=== PATIENT | male | born 1955 | race Caucasian/White ===

== ENCOUNTER 2019-04-14 17:43 | Inpatient (IN) | payer OTHER, MEDICARE ==
[2019-04-14 18:12] LABS: #Lymphocytes 0.8 thou/uL (1.20-3.40); #Monocytes 1.1 thou/uL (0.11-0.59); #Neutrophils 15.4 thou/uL (1.40-6.50); %Basophils 0.1 % (0.0-1.0); %Eosinophils 0.2 % (0.0-10.0); %Lymphocytes 4.3 % (21.0-51.0); %Monocytes 6.3 % (0.0-10.0); Hemoglobin 14.6 g/dL (14.0-18.0); Mean Corpuscular Hemoglobin 30.7 pg (27.0-31.0); Mean Corpuscular Volume 90.3 fL (78.0-98.0); Mean Platelet Volume 7.5 fL (7.4-10.4); Platelet Count 184 thou/uL (130-400); RBC Distribution Width 12.7 % (11.5-14.5); Red Blood Cell (RBC) Count 4.77 mill/uL (4.70-6.10); White Blood Cell (WBC) Count 17.3 thou/uL (4.8-10.8)
[2019-04-14 18:22] LABS: Amphetamine Detected (NotDetected); Barbiturates Screen Not Detected (NotDetected); Benzodiazepine Screen Not Detected (NotDetected); Cocaine Metabolite Screen Not Detected (NotDetected); Medtox Control Line Valid? VALID (VALID); Medtox Reader # READER 4; Methadone Not Detected (NotDetected); Methamphetamine Detected (NotDetected); Opiate Screen Not Detected (NotDetected); Oxycodone Screen Not Detected (NotDetected); Phencyclidine (PCP) Not Detected (NotDetected); THC/Cannabinoid Screen Detected (NotDetected); Tricyclic Screen Not Detected (NotDetected)
[2019-04-14 18:25] LABS: Bacteria/HPF None Seen HPF (None Seen); Bilirubin Negative (Negative); Blood, Urine Trace (Negative); Clarity Clear (Clear); Glucose, Urine (Dipstick) Greater than 1000 mg/dL (Negative); Leukocyte Negative Leu/uL (Negative); Nitrite Negative (Negative); Protein, Urine (Dipstick) 20 mg/dL (Neg-Trace); RBC/HPF 0-3 HPF (0-3); Squamous Epithelial 0-3 HPF (0-3); Urobilinogen Normal mg/dL (Less than 2); WBC/HPF 0-3 HPF (0-3)
[2019-04-14 18:46] LABS: ALT (SGPT) 16 U/L (8-55); AST (SGOT) 14 U/L (5-34); Albumin 3.9 g/dL (3.4-4.8); Alkaline Phosphatase 99 U/L (40-110); Anion Gap 22 mmol/L (10-20); BUN (Urea Nitrogen) 84 mg/dL (8.4-25.7); Bilirubin, Total 0.4 mg/dL (0.2-1.2); Calc. Creatinine Clearance 0 mL/min (70-130); Calcium 8.6 mg/dL (7.8-10.44); Carbon Dioxide 11 mmol/L (23-31); Chloride 99 mmol/L (98-107); Estimated GFR-MDRD 20; Globulin 2.9 g/dL (2.4-3.5); Glucose 706 mg/dL (80-115); Potassium 5.3 mmol/L (3.5-5.1); Protein, Total 6.8 g/dL (5.8-8.1); Sodium 127 mmol/L (136-145)
[2019-04-14] MEDS ORDERED: Insulin Regular 100 units/100 ml in NS IVPB SCH (19:00)
--- NOTE | 2019-04-14 19:12 | CT ---
CT OF THE BRAIN WITHOUT CONTRAST: 04/14/19 COMPARISON: None. HISTORY: Altered mental status. TECHNIQUE: Multiple contiguous axial images were obtained in a CT of the brain without contrast. FINDINGS: The brain is normal in morphology and attenuation without focal lesions or confluent areas of infarct ion. There is no evidence of hydrocephalus, intracranial hemorrhage, or extra-axial fluid collection. There is a nonspecific lytic area in the left posterior scalp. The overlying soft tissues are unremar kable. IMPRESSION: No evidence of acute intracranial abnormality. POS: [facility]
--- NOTE | 2019-04-14 19:13 | RAD ---
SINGLE VIEW OF THE CHEST: 04/14/19 COMPARISON: None. HISTORY: Changing mental status. FINDINGS: Single view of the chest shows a normal sized cardiomediastinal silhouette. There is no evidence of c onsolidation, mass, or pleural effusion. The bones are unremarkable. IMPRESSION: No evidence of acute cardiopulmonary disease. POS: [facility]
[2019-04-14] MEDS ORDERED: Ondansetron ODT 4 MG TAB PO PRN (19:58)
[2019-04-14] MEDS ORDERED: Ondansetron PF 4 MG/2 ML Vial IVP PRN (19:58)
[2019-04-14] MEDS ORDERED: Dextrose 5 %-0.45 % NaCl 1,000 ML IV PRN (19:58)
[2019-04-14] MEDS ORDERED: Acetaminophen 325 MG TAB PO PRN (19:58)
[2019-04-14] MEDS ORDERED: Sodium Chloride 0.9% 1,000 ML IV PRN ×4 (19:58)
[2019-04-14] MEDS ORDERED: NS 0.9% w/ 20 MEQ KCL 1,000 ML IV PRN ×2 (19:58)
[2019-04-14] MEDS ORDERED: Acetaminophen 650 MG Suppository PR PRN (19:58)
[2019-04-14] MEDS ORDERED: CCU Electrolyte Replacement 1 EACH IVPB ONE (19:58)
[2019-04-14] MEDS ORDERED: HUMULIN R 100 UNITS in Sodium Chloride 0.9% 100 ML IVPB SCH (20:00)
[2019-04-14] MEDS ORDERED: CCU ELECTROLYTE REPLACEMENT PROTOCOL FS PRN (20:05)
[2019-04-14] MEDS ORDERED: Potassium Chloride 20 MEQ TAB PO PRN (20:05)
[2019-04-14] MEDS ORDERED: Potassium Chloride 40 MEQ in Premix Bag 1 BAG IVPB PRN (20:05)
[2019-04-14] MEDS ORDERED: Potassium Phosphate 12 MMOL in Sodium Chloride 0.9% 250 ML 250 ML IV PRN (20:05)
[2019-04-14] MEDS ORDERED: Potassium Phosphate 9 MMOL in Sodium Chloride 0.9% 100 ML IVPB PRN (20:05)
[2019-04-14] MEDS ORDERED: Magnesium 2 GM/50 ML 2 GM in Premix Bag 1 BAG IVPB PRN (20:05)
[2019-04-14] MEDS ORDERED: Magnesium Oxide 400 MG TAB PO PRN ×2 (20:05)
[2019-04-14] MEDS ORDERED: PHOS-NAK 1 PKT PACK PO PRN ×2 (20:05)
[2019-04-14] MEDS ORDERED: Potassium Chloride 40 MEQ in Sodium Chloride 0.9% 250 ML 250 ML IVPB PRN (20:05)
[2019-04-14] MEDS ORDERED: Potassium Phosphate 15 MMOL in Sodium Chloride 0.9% 250 ML 250 ML IV PRN (20:05)
[2019-04-14 20:21] LABS: Actual Bicarbonate (HCO3a) 10.7 mEq/L (22-28); Analyzer IN Cardio ER; Base Excess (BEa) -14.8 mEq/L (-2.0 to +3.0); Calcium, Ionized 1.25 mmol/L (1.12-1.30); Carboxyhemoglobin (COHb) 0.7 gm% (0.0-3.0); O2 Tension (PaO2) 90.2 mmHg (> 80.0)
[2019-04-14 20:22] LABS: ALV-art Gradient 27.905 (0-20); CO2 Tension 25.3 mmHg (35.0-45.0); Puncture Site RRA; pH, Arterial 7.25 (7.35-7.45)
[2019-04-14 20:43] LABS: Anion Gap 19 mmol/L (10-20); BUN (Urea Nitrogen) 75 mg/dL (8.4-25.7); Calc. Creatinine Clearance 0 mL/min (70-130); Calcium 8.7 mg/dL (7.8-10.44); Chloride 108 mmol/L (98-107); Estimated GFR-MDRD 24; Sodium 132 mmol/L (136-145)
[2019-04-14 20:48] LABS: Carbon Dioxide 9 mmol/L (23-31); Glucose 599 mg/dL (80-115)
[2019-04-14 21:04] LABS: Troponin I 0.289 ng/mL (< 0.028)
--- NOTE | 2019-04-14 21:19 | HP ---
TIME OF EVALUATION: 7:50 p.m. PRIMARY CARE DOCTOR: Unable to verify, the patient is confused. CODE STATUS: Full code. CHIEF COMPLAINT: Change in mental status. HISTORY OF PRESENT ILLNESS: The is a 63 years old male patient with past medical history of diabetes, brought in by EMS after has had called them. Reportedly, the patient had been confused for the past 2 to 3 days with no clear triggers, no alleviating factors. The patient seems to be dehydrated. Labs showed that the patient is in DKA, possible HHS given high osmolality. The patient received IV fluids and DKA protocol. We will place the patient in IMCU. He is able to answer simple questions. Continue to monitor. Seems to be very dehydrated. REVIEW OF SYSTEMS: Unable to obtain, patient is confused, noncooperative. PAST MEDICAL HISTORY: Includes diabetes, hypertension, and high cholesterol. SURGICAL HISTORY: Mouth surgeries, surgeries to remove kidney stones. PSYCHIATRIC HISTORY: Includes anxiety and depression. SOCIAL HISTORY: No alcohol, no drugs. The patient abuse marijuana, cigarettes on a daily basis. Urine toxicology showed amphetamine, methamphetamines and marijuana today. KNOWN ALLERGIES: No known drug allergies. REPORTED MEDICATIONS: Unable to obtain. PHYSICAL EXAMINATION: VITAL SIGNS: On presentation; blood pressure 127/69 with heart rate 81, respiratory rate was 15, pain unable to rate, oxygen saturation was 99% on room air. GENERAL APPEARANCE: The patient was found in his room, lethargic, generalized weakness, confused, able to answer very simple questions, seems to be dry. HEENT: Eyes; normal conjunctivae. Dry oral mucosa. Anicteric. No JVD. RESPIRATORY: Bilateral air entry. No rales. No wheezes. Symmetric expansion. CARDIOVASCULAR: Normal rate. Regular rhythm. No murmurs. No gallop. No edema. ABDOMEN: Soft. Normal bowel sounds. MUSCULOSKELETAL: Baseline range of motion and strength. SKIN: Warm, intact, dry. No rash. No pallor. Capillary refill seems to be intact. NEURO: No evidence of any new focal weakness. Cranial nerves seems to be intact. PSYCH: The patient has good mood. No anxiety. Optimal judgment. DIAGNOSTIC DATA: EKG showed normal sinus rhythm with a rate of 81 with NC 142, QRS 92, QT corrected 450. Brain CT showed no evidence of acute intracranial abnormality. Chest x-ray showed no evidence of acute cardiopulmonary disease. LABORATORY DATA: Showed white count 17.3, MCV 90, platelet count 284. Chemistry; sodium 127, potassium 5.3, chloride 99, carbon dioxide 11, anion gap 22, BUN 84, creatinine 3.22; in previous admissions, the creatinine was normal at 0.8; GFR 20, glucose 706. Serum osmolality 353. Troponin 0.342. Urine was done, showed glucosuria, ketonuria, urine blood. Toxicology show amphetamine in the urine and also cannabinoids. ASSESSMENT AND PLAN: The patient will be placed in the hospital with following medical problems: 1. Diabetic ketoacidosis. The patient has ketonuria, hyperglycemia and acidosis. The patient has been started on diabetic ketoacidosis protocol, receiving fluids. The patient seems to be very dehydrated from the diabetic ketoacidosis and also hyperosmolar. Will follow diabetic ketoacidosis protocol, follow chemistry and adjust treatment as needed. 2. Hyperosmolar hyperglycemic state. The patient has very high osmolality of 353 at this point. The treatment is the same like for diabetic ketoacidosis. Once the blood sugar drops below 250, we will continue with D5W half NS to decrease the osmolality in the blood. 3. Leukocytosis. At this point, it is very difficult to know if the patient has any infections since all the symptoms from diabetic ketoacidosis overlap with infection. Urine is negative for infection. We will continue to monitor, hydrate and treat depending on patient's clinical progress. Seems more in favor of metabolic derangement than an infectious process. 4. Hypertonic hyponatremia, corrected sodium 137. This sodium level is unrealistic. 5. Hyperkalemia. This is mild given the patient's acidosis. We will continue to monitor and we will replace as needed. 6. Acute kidney injury. Creatinine 3.22, previous one was 0.8. We will hydrate aggressively and monitor kidney function and treat accordingly. 7. Elevated troponin of 0.342, most likely related to dehydration, possible [id number]-[id number] myocardial infarction type 2. We will trend troponins and treat accordingly. 8. Drug use. Once the patient is alert and oriented, will need some counseling regarding this finding. 9. Deep venous thrombosis prophylaxis. 10. Acute encephalopathy that is metabolic secondary to diabetic ketoacidosis and hyperglycemic hyperosmolar syndrome. Job ID: [id number]
[2019-04-14 23:30] VITALS: BP 138/72
[2019-04-15 00:37] LABS: Anion Gap 14 mmol/L (10-20); BUN (Urea Nitrogen) 65 mg/dL (8.4-25.7); Calc. Creatinine Clearance 31 mL/min (70-130); Calcium 8.4 mg/dL (7.8-10.44); Carbon Dioxide 15 mmol/L (23-31); Chloride 113 mmol/L (98-107); Estimated GFR-MDRD 32; Glucose 295 mg/dL (80-115); Potassium 3.4 mmol/L (3.5-5.1); Sodium 139 mmol/L (136-145)
[2019-04-15 00:42] LABS: Troponin I 0.272 ng/mL (< 0.028)
[2019-04-15] MEDS: D5 1/2 NS w/20 mEq KCL 1,000 ML IV PRN ×2 (00:55→03:57)
[2019-04-15] MEDS: Heparin 5,000 UNITS/ML VIAL SC SCH ×4 (03:36→21:35)
[2019-04-15 04:13] LABS: #Lymphocytes 0.7 thou/uL (1.20-3.40); #Monocytes 1.2 thou/uL (0.11-0.59); %Lymphocytes 5.3 % (21.0-51.0); %Monocytes 8.5 % (0.0-10.0); %Neutrophils 86.2 % (42.0-75.0); Hemoglobin 14.8 g/dL (14.0-18.0); Mean Corpuscular HGB CONC 35.2 g/dL (32.0-36.0); Mean Corpuscular Hemoglobin 31.1 pg (27.0-31.0); Mean Corpuscular Volume 88.3 fL (78.0-98.0); Mean Platelet Volume 6.9 fL (7.4-10.4); Platelet Count 163 thou/uL (130-400); Red Blood Cell (RBC) Count 4.76 mill/uL (4.70-6.10); White Blood Cell (WBC) Count 13.9 thou/uL (4.8-10.8)
[2019-04-15 04:31] LABS: Anion Gap 11 mmol/L (10-20); BUN (Urea Nitrogen) 56 mg/dL (8.4-25.7); Calc. Creatinine Clearance 36 mL/min (70-130); Calcium 8.9 mg/dL (7.8-10.44); Carbon Dioxide 17 mmol/L (23-31); Chloride 117 mmol/L (98-107); Estimated GFR-MDRD 38; Glucose 215 mg/dL (80-115); Potassium 3.5 mmol/L (3.5-5.1); Sodium 141 mmol/L (136-145)
[2019-04-15 04:32] LABS: Anion Gap 13 mmol/L (10-20); BUN (Urea Nitrogen) 55 mg/dL (8.4-25.7); Calc. Creatinine Clearance 37 mL/min (70-130); Calcium 8.7 mg/dL (7.8-10.44); Carbon Dioxide 16 mmol/L (23-31); Chloride 116 mmol/L (98-107); Estimated GFR-MDRD 40; Glucose 212 mg/dL (80-115); Potassium 3.5 mmol/L (3.5-5.1); Sodium 141 mmol/L (136-145)
[2019-04-15] MEDS ORDERED: Dextrose 5% in Water 1,000 ML IV PRN (13:28)
[2019-04-15] MEDS ORDERED: HumaLOG 300 UNITS/3 ML VIAL SC PRN (13:28)
[2019-04-15] MEDS ORDERED: Dextrose 50% Abboject 50 ML SYRINGE SLOW IVP PRN (13:28)
[2019-04-15] MEDS ORDERED: Insulin Glargine 12 UNITS in Pre-Filled Syringe SC SCH (13:30)
--- NOTE | 2019-04-15 13:35 | PDOC.HOSPP ---
- Subjective Encounter Date: 04/15/19 Encounter Time: 13:33 Subjective: Mr. Peres was seen today in follow-up of DKA. He is much more alert. He does not have any complaints. - Objective Vital Signs & Weight: Vital Signs (12 hours) Temp Pulse Ox 04/15/19 11:13 97.8 F 04/15/19 07:49 99 04/15/19 07:30 97.2 F L 04/15/19 04:00 98.4 F Weight Weight 132 lb 3.2 oz Most Recent Monitor Data Heart Rate from ECG 79 NIBP 174/93 NIBP BP-Mean 120 Respiration from ECG 15 SpO2 100 I&O: 04/14/19 04/15/19 04/16/19 06:59 06:59 06:59 Intake Total 1768 Output Total 700 Balance 1068 Result Diagrams: 04/15/19 03:58 04/15/19 03:58 Additional Labs: Accuchecks 04/15/19 04/15/19 04/15/19 13:05 12:08 11:17 POC Glucose 134 H 179 H 118 H 04/15/19 04/15/19 04/15/19 10:03 09:05 08:14 POC Glucose 105 232 H 122 H 04/15/19 04/15/19 04/15/19 06:56 06:03 05:32 POC Glucose 107 156 H 186 H 04/15/19 04/15/19 04/15/19 05:00 04:01 03:09 POC Glucose 181 H 178 H 223 H 04/15/19 04/15/19 04/14/19 02:01 00:52 23:58 POC Glucose 214 H 210 H 250 H 04/14/19 04/14/19 04/14/19 22:45 21:57 19:32 POC Glucose 332 H 474 H Greater than 550 H* 04/14/19 17:50 POC Glucose Greater than 550 H* Hospitalist ROS - Medication Medications: Active Medications Generic Name Dose Route Start Last Admin Trade Name Freq PRN Reason Stop Dose Admin Heparin Sodium (Porcine) 5,000 units 04/14/19 21:00 04/15/19 10:29 Heparin SC 5,000 units TID MIMI Administration - Exam Eye: PERRL, anicteric sclera ENT: normocephalic atraumatic, no oropharyngeal lesions (poor dentition) Heart: RRR, no murmur, no gallops, no rubs, normal peripheral pulses Respiratory: CTAB, no wheezes, no rales, no ronchi, normal chest expansion, no tachypnea, normal percussion Gastrointestinal: soft, non-tender, non-distended, normal bowel sounds, no palpable masses, no hepatomegaly, no splenomegaly, no guarding, no rigidity Extremities: no cyanosis, no clubbing, no edema Psychiatric: normal affect, normal behavior, A&O x 3 Hosp A/P (1) DKA, type 2 Code(s): E11.10 - TYPE 2 DIABETES MELLITUS WITH KETOACIDOSIS WITHOUT COMA Status: Acute (2) Polysubstance abuse Code(s): F19.10 - OTHER PSYCHOACTIVE SUBSTANCE ABUSE, UNCOMPLICATED Status: Acute (3) Acute kidney injury Code(s): N17.9 - ACUTE KIDNEY FAILURE, UNSPECIFIED Status: Acute (4) Hypertension Code(s): I10 - ESSENTIAL (PRIMARY) HYPERTENSION Status: Acute - Plan * DKA- likely from substance abuse and medical non-compliance * His AG is closed. He is awake and alert, and feels ready to eat- will trasition him off the insulin drip * Start him on a Long acting insulin, as well as a sliding scale * Consult a aeronautics commission director * Counseling on substance abuse offered * FARHEEN- is suspect from pre-renal azotemia- continue hydration, and monitoring of BMP * HTN- continue PRN medications for now
[2019-04-15] MEDS ORDERED: D5 1/2 NS w/20 mEq KCL 1,000 ML IV SCH (13:45)
[2019-04-15] MEDS ORDERED: Insulin Glargine 6 UNITS in Pre-Filled Syringe SC SCH (21:00)
[2019-04-15] MEDS: NS 0.9% w/ 20 MEQ KCL 1,000 ML IV SCH (21:32)
[2019-04-16 04:41] LABS: Anion Gap 11 mmol/L (10-20); BUN (Urea Nitrogen) 22 mg/dL (8.4-25.7); Calc. Creatinine Clearance 71 mL/min (70-130); Calcium 8.7 mg/dL (7.8-10.44); Carbon Dioxide 19 mmol/L (23-31); Chloride 112 mmol/L (98-107); Estimated GFR-MDRD 85; Glucose 230 mg/dL (80-115); Potassium 3.5 mmol/L (3.5-5.1); Sodium 138 mmol/L (136-145)
[2019-04-16] MEDS: HumaLOG 300 UNITS/3 ML VIAL SC PRN ×3 (06:39→17:15)
[2019-04-16] MEDS ORDERED: hydrALAZINE 25 MG TAB PO PRN (09:12)
[2019-04-16] MEDS: Heparin 5,000 UNITS/ML VIAL SC SCH ×3 (09:30→20:30)
[2019-04-16] MEDS ORDERED: Insulin Glargine 12 UNITS in Pre-Filled Syringe 1 EACH SC SCH ×2 (09:45→21:00)
--- NOTE | 2019-04-16 10:06 | PDOC.HOSPP ---
- Subjective Encounter Date: 04/16/19 Encounter Time: 10:05 Subjective: Mr. Peres was seen today in follow-up of DKA. He is feeling much better. He is beginning to remember the events which led up to his hospitalization. But he is still a bit foggy. - Objective Vital Signs & Weight: Vital Signs (12 hours) Temp 04/16/19 06:48 98.1 F 04/16/19 03:20 97.5 F L 04/15/19 22:44 98.1 F Weight Admit Weight 132 lb 3.2 oz Weight 141 lb 1.533 oz Most Recent Monitor Data Heart Rate from ECG 76 NIBP 157/88 NIBP BP-Mean 111 Respiration from ECG 17 SpO2 100 I&O: 04/15/19 04/16/19 04/17/19 06:59 06:59 06:59 Intake Total 1768 1102 Output Total 700 850 Balance 1068 252 Result Diagrams: 04/15/19 03:58 04/16/19 04:13 Additional Labs: Accuchecks 04/16/19 04/15/19 04/15/19 05:15 20:20 16:41 POC Glucose 291 H 267 H 128 H 04/15/19 04/15/19 04/15/19 15:05 13:05 12:08 POC Glucose 169 H 134 H 179 H 04/15/19 04/15/19 04/14/19 11:17 10:03 19:32 POC Glucose 118 H 105 Greater than 550 H* 04/14/19 17:50 POC Glucose Greater than 550 H* Hospitalist ROS - Medication Medications: Active Medications Generic Name Dose Route Start Last Admin Trade Name Freq PRN Reason Stop Dose Admin Heparin Sodium (Porcine) 5,000 units 04/14/19 21:00 04/16/19 09:30 Heparin SC 5,000 units TID MIMI Administration Potassium Chloride/Sodium Chloride 1,000 mls @ 100 mls/hr 04/15/19 19:15 21:32 Ns 0.9% W/ 20 Meq Kcl IV 1,000 mls .Q10H MIMI Administration Insulin Human Lispro 0 units 04/15/19 13:28 04/16/19 06:39 Humalog SC 6 unit .MODERATE SLIDING SC PRN Administration Moderate Correctional Scale - Exam Eye: PERRL, anicteric sclera Heart: RRR, no murmur, no gallops, no rubs, normal peripheral pulses Respiratory: CTAB, no wheezes, no rales, no ronchi, normal chest expansion, no tachypnea, normal percussion Gastrointestinal: soft, non-tender, non-distended, normal bowel sounds, no palpable masses, no hepatomegaly, no splenomegaly Extremities: no cyanosis, no clubbing, no edema Skin: normal turgor (+ hyperpigmented rash in both lower extremities, and Mycotic toe nails.) Hosp A/P (1) DKA, type 2 Code(s): E11.10 - TYPE 2 DIABETES MELLITUS WITH KETOACIDOSIS WITHOUT COMA Status: Acute (2) Polysubstance abuse Code(s): F19.10 - OTHER PSYCHOACTIVE SUBSTANCE ABUSE, UNCOMPLICATED Status: Acute (3) Acute kidney injury Code(s): N17.9 - ACUTE KIDNEY FAILURE, UNSPECIFIED Status: Acute (4) Hypertension Code(s): I10 - ESSENTIAL (PRIMARY) HYPERTENSION Status: Acute - Plan * DKA- resolved * DM- will start him on Lantus, and Metformin * He says he was taking Glucotrol- will discontinue this, as he is taking insulin, and this will increase the risk of hypoglycemia * He has a very poor insite into his illness, and he is aware of this- will try to arrange for Home Health, if it is available in his area, prior to discharge home * HTN- blood pressure is elevated- will add Lisinopril * Acute Kidney injury- resolved * Hopefully home today
[2019-04-16] MEDS: NS 0.9% w/ 20 MEQ KCL 1,000 ML IV SCH ×2 (10:23→16:11)
[2019-04-16 13:09] VITALS: BMI 20.2
[2019-04-16] MEDS ORDERED: Lisinopril 5 MG TAB PO SCH (21:00)
[2019-04-16] MEDS ORDERED: cloNIDine 0.1 MG TAB PO SCH (22:15)
[2019-04-16 23:24] VITALS: TEMP 98.1
--- NOTE | 2019-04-17 02:40 | DIS ---
DATE OF ADMISSION: 04/14/2019 DATE OF DISCHARGE: 04/16/2019 PRIMARY CARE PHYSICIAN: Through the [facility]. DISCHARGE DISPOSITION: Home. PRIMARY DISCHARGE DIAGNOSES: 1. Diabetic ketoacidosis. 2. Polysubstance abuse. 3. Diabetes mellitus, type 2, poorly controlled. 4. Hypertension. 5. Hypercholesterolemia. DISCHARGE MEDICATIONS: Include; 1. Lantus insulin 16 units twice daily. 2. Metformin 500 mg twice daily. 3. Lisinopril 5 mg daily. IMAGING: During the hospital stay, the patient had a CT scan of the brain showing no evidence of any acute intracranial abnormalities. CODE STATUS: Full code. ALLERGIES: NO KNOWN DRUG ALLERGIES. HOSPITAL COURSE: Mr. Peres is a pleasant 63-year-old gentleman, who was brought to the hospital with altered mental status. He was found to be in DKA. Urine drug screen was positive for methamphetamines and cannabinoids. The patient was placed in the IMCU on an insulin drip and DKA resolved. He was transitioned back to subcutaneous insulin as well as metformin. The patient could not tell me how much insulin he normally takes. He told me he is on metformin and he believes Glucotrol at home, but did not know any names of any other medications. He had difficulty telling me about the sliding scale that he says that he uses with NovoLog insulin. For this reason, we are going to simplify his regimen as much as possible and place him on metformin as well as Lantus insulin only for his diabetes. No sliding scale at this time. I would like for him to have home health, but unfortunately, he is unfunded and therefore, there was not a home health agency that could see him. He is a and does go to the [facility] for his care and hopefully there can be some resources there. He was given printed material to take home with him with regard to diabetic education. The patient is currently clinically stable and will be discharged home today. Job ID: [id number]
[2019-04-17] MEDS ORDERED: Insulin Glargine 12 UNITS in Pre-Filled Syringe 1 EACH SC SCH (09:00)
[2019-04-17] MEDS ORDERED: Lisinopril 5 MG TAB PO SCH (09:00)
== END 2019-04-16 23:29 | disposition home or self-care (01) | DRG 637 ==
LOC: ERS 17:43 → IMCU/EMU 22:37
PROVIDERS: ADMIT Hospitalist; ATTEND Hospitalist
DX: E11.10 Type 2 diabetes mellitus with ketoacidosis without coma (principal); G93.41 Metabolic encephalopathy; E87.1 Hypo-osmolality and hyponatremia; N17.9 Acute kidney failure, unspecified; E86.0 Dehydration; I10 Essential (primary) hypertension; E78.00 Pure hypercholesterolemia, unspecified; F12.10 Cannabis abuse, uncomplicated; F17.210 Nicotine dependence, cigarettes, uncomplicated; E11.00 Type 2 diabetes mellitus with hyperosmolarity without nonketotic hyperglycemic-hyperosmolar coma (NKHHC); D72.829 Elevated white blood cell count, unspecified; E87.5 Hyperkalemia; F19.10 Other psychoactive substance abuse, uncomplicated; Z79.4 Long term (current) use of insulin; Z79.899 Other long term (current) drug therapy
CPT/HCPCS: 36415; 36416; 51701; 70450; 71045; 80048; 80053; 80306; 81003; 81015; 82274; 82550; 82553; 82805; 83605; 83930; 84484; 85025; 87040; 87086; 93005; 96361; 96365; 96366; J1644; J1815; J3480; J3490; Q0162

== ENCOUNTER 2019-09-10 06:41 | Inpatient (IN) | payer MEDICARE, OTHER ==
[2019-09-10 07:23] LABS: #Monocytes 0.5 thou/uL (0.11-0.59); #Neutrophils 12.4 thou/uL (1.40-6.50); %Basophils 0.1 % (0.0-1.0); %Eosinophils 0.1 % (0.0-10.0); %Lymphocytes 7.4 % (21.0-51.0); %Monocytes 3.4 % (0.0-10.0); Hemoglobin 14.7 g/dL (14.0-18.0); Mean Corpuscular HGB CONC 32.3 g/dL (32.0-36.0); Mean Corpuscular Hemoglobin 29.9 pg (27.0-31.0); Mean Corpuscular Volume 92.3 fL (78.0-98.0); Platelet Count 357 thou/uL (130-400); RBC Distribution Width 12.4 % (11.5-14.5); Red Blood Cell (RBC) Count 4.92 mill/uL (4.70-6.10); White Blood Cell (WBC) Count 13.9 thou/uL (4.8-10.8)
[2019-09-10 07:55] LABS: ALT (SGPT) 13 U/L (8-55); AST (SGOT) 10 U/L (5-34); Albumin 3.9 g/dL (3.4-4.8); Alkaline Phosphatase 107 U/L (40-110); BUN (Urea Nitrogen) 75 mg/dL (8.4-25.7); Bilirubin, Total 0.7 mg/dL (0.2-1.2); Calc. Creatinine Clearance 0 mL/min (70-130); Calcium 8.6 mg/dL (7.8-10.44); Carbon Dioxide Less than 8 mmol/L (23-31); Chloride 83 mmol/L (98-107); Estimated GFR-MDRD 23; Globulin 3.5 g/dL (2.4-3.5); Glucose 856 mg/dL (80-115); Potassium 7.2 mmol/L (3.5-5.1); Protein, Total 7.4 g/dL (5.8-8.1); Sodium 118 mmol/L (136-145)
[2019-09-10] MEDS ORDERED: HUMULIN R 100 UNITS in Sodium Chloride 0.9% 100 ML IVPB SCH ×2 (08:00→12:30)
[2019-09-10] MEDS ORDERED: Insulin Regular 300 UNITS/3 ML VIAL ONE (08:01)
[2019-09-10] MEDS ORDERED: Insulin Regular 300 UNITS/3 ML VIAL IVP SCH (08:15)
[2019-09-10 08:30] LABS: Magnesium 2.1 mg/dL (1.6-2.6); Phosphorus 8.2 mg/dL (2.3-4.7)
--- NOTE | 2019-09-10 09:19 | RAD ---
EXAM: CHEST ONE VIEW HISTORY: Nausea and vomiting. Central line placement. COMPARISON: 04/14/2019 FINDINGS: A right internal jugular vein central venous catheter is noted in place with tip overlying the expect ed location of distal SVC. Cardiac silhouette and pulmonary vasculature are within normal limits. The lungs are clear. No pneumothorax or pleural effusion is seen. Degenerative changes are seen in th e spine. Vascular calcifications are seen in the thoracic aorta. IMPRESSION: No acute cardiopulmonary process.
[2019-09-10] MEDS ORDERED: Norepinephrine 8 MG/0.9% NS 250 ML ONE (11:06)
[2019-09-10] MEDS ORDERED: CCU Electrolyte Replacement 1 EACH IVPB SCH (12:25)
[2019-09-10] MEDS ORDERED: Dextrose 5 %-0.45 % NaCl 1,000 ML IV PRN (12:25)
[2019-09-10] MEDS ORDERED: NS 0.9% w/ 20 MEQ KCL 1,000 ML IV PRN ×2 (12:25)
[2019-09-10] MEDS ORDERED: Sodium Chloride 0.9% 1,000 ML IV PRN ×4 (12:25)
[2019-09-10 12:37] LABS: Lactic Acid 2.6 mmol/L (0.5-2.2)
[2019-09-10 12:43] LABS: BUN (Urea Nitrogen) 69 mg/dL (8.4-25.7); Calc. Creatinine Clearance 0 mL/min (70-130); Calcium 7.2 mg/dL (7.8-10.44); Carbon Dioxide Less than 8 mmol/L (23-31); Chloride 97 mmol/L (98-107); Estimated GFR-MDRD 28; Glucose 636 mg/dL (80-115); Potassium 5.3 mmol/L (3.5-5.1); Sodium 125 mmol/L (136-145)
[2019-09-10] MEDS ORDERED: Potassium Phosphate 12 MMOL in Sodium Chloride 0.9% 250 ML 250 ML IV PRN (13:01)
[2019-09-10] MEDS ORDERED: Potassium Phosphate 15 MMOL in Sodium Chloride 0.9% 250 ML 250 ML IV PRN (13:01)
[2019-09-10] MEDS ORDERED: Magnesium Oxide 400 MG TAB PO PRN ×2 (13:01)
[2019-09-10] MEDS ORDERED: PHOS-NAK 1 PKT PACK PO PRN ×2 (13:01)
[2019-09-10] MEDS ORDERED: Magnesium 2 GM/50 ML 2 GM in Premix Bag 1 BAG IVPB PRN (13:01)
[2019-09-10] MEDS ORDERED: Potassium Phosphate 9 MMOL in Sodium Chloride 0.9% 100 ML IVPB PRN (13:01)
[2019-09-10] MEDS ORDERED: Potassium Chloride 20 MEQ TAB PO PRN (13:01)
[2019-09-10] MEDS ORDERED: CCU ELECTROLYTE REPLACEMENT PROTOCOL FS PRN (13:01)
[2019-09-10] MEDS ORDERED: Potassium Chloride 40 MEQ in Sodium Chloride 0.9% 250 ML 250 ML IVPB PRN (13:01)
[2019-09-10] MEDS ORDERED: Potassium Chloride 40 MEQ in Premix Bag 1 BAG IVPB PRN (13:01)
[2019-09-10 13:20] LABS: Bilirubin Negative (Negative); Blood, Urine Negative (Negative); Clarity Clear (Clear); Glucose, Urine (Dipstick) Greater than 1000 mg/dL (Negative); Leukocyte Negative Leu/uL (Negative); Nitrite Negative (Negative); Protein, Urine (Dipstick) 10 mg/dL (Neg-Trace); Urobilinogen Normal mg/dL (Less than 2)
[2019-09-10 13:44] LABS: Anion Gap 23 mmol/L (10-20); BUN (Urea Nitrogen) 70 mg/dL (8.4-25.7); Calc. Creatinine Clearance 0 mL/min (70-130); Calcium 7.3 mg/dL (7.8-10.44); Carbon Dioxide 11 mmol/L (23-31); Chloride 99 mmol/L (98-107); Estimated GFR-MDRD 27; Potassium 5.2 mmol/L (3.5-5.1); Sodium 128 mmol/L (136-145)
[2019-09-10 13:47] LABS: Glucose 566 mg/dL (80-115)
[2019-09-10 14:26] LABS: Glucose 513 mg/dL (80-115)
[2019-09-10 15:12] VITALS: BMI 20.4
[2019-09-10 15:13] LABS: Actual Bicarbonate (HCO3a) 13.1 mEq/L (22-28); Base Excess (BEa) -12.4 mEq/L (-2.0 to +3.0); CO2 Tension 29.2 mmHg (35.0-45.0); Calcium, Ionized 1.09 mmol/L (1.12-1.30); Carboxyhemoglobin (COHb) 0.7 gm% (0.0-3.0); Hemoglobin (Hb) 12.2 g/dL (14.0-18.0); O2 Tension (PaO2) 79.8 mmHg (> 80.0); Potassium - ABG Lab 4.67 mmol/L (3.70-5.30); pH, Arterial 7.27 (7.35-7.45)
[2019-09-10 15:16] LABS: Puncture Site RRA
[2019-09-10 17:02] LABS: Anion Gap 15 mmol/L (10-20); BUN (Urea Nitrogen) 65 mg/dL (8.4-25.7); Calc. Creatinine Clearance 35 mL/min (70-130); Calcium 7.4 mg/dL (7.8-10.44); Carbon Dioxide 17 mmol/L (23-31); Chloride 105 mmol/L (98-107); Estimated GFR-MDRD 32; Glucose 296 mg/dL (80-115); Potassium 4.4 mmol/L (3.5-5.1); Sodium 133 mmol/L (136-145)
--- NOTE | 2019-09-10 17:40 | PRG ---
DATE OF SERVICE: 09/10/2019 HISTORY OF PRESENT ILLNESS: Mr. Peres is a 63-year-old male, who has been in the ER since about 6:30 this morning. He transferred to the critical care unit later this afternoon. He says he has a history of diabetes. He presented with severe metabolic acidosis and hypotension. He arrived in the Critical Care Unit after receiving over 7 L of IV fluids in the emergency department. Blood pressure first check with the cuff was low. Arms were switched and his blood pressure was noted to be about 50 mm higher in the opposite arm. His Levophed has subsequently been discontinued. Not a very good historian. He says that he smokes, drinks, and may have missed some insulin, but that is pretty much all I could get out of him. He was last hospitalized and discharged in March 2019. At that point in time, his discharge diagnosis was diabetic ketoacidosis combined with polysubstance abuse, hypertension, and lipid disorder. He did not have a tox screen done this admission. He did have a beta hydroxybutyrate of 13. I have ordered a urine drug screen. At last admission, he was positive for amphetamines and methamphetamine. He noted he received 7 L of fluid in the emergency department. He does not have a Henry. I asked the nurse to place a Henry. PAST MEDICAL HISTORY: Diabetes, hypertension, lipid disorder, and kidney stones. SOCIAL HISTORY: Drinker. In the past, he has admitted smoking marijuana and smoking cigarettes every day. He still admits to drinking and smoking every day. FAMILY HISTORY: Negative for lung disease in early age. REVIEW OF SYSTEMS: Ten points otherwise non-reliable, but negative. PHYSICAL EXAMINATION: VITAL SIGNS: Heart rates in the 80s, blood pressure 129/55, respiratory rates in the teens. HEAD AND NECK: Unremarkable. LUNGS: Clear. HEART: Regular rhythm. S1, S2 are normal. ABDOMEN: Soft and nontender. EXTREMITIES: No clubbing, cyanosis, or edema. NEURO: Grossly nonfocal. LABORATORY DATA: White count this morning is 13.9, hemoglobin 14.7, platelets 357. Sodium 133, potassium 4.4, chloride 105, bicarb 17, BUN 65, creatinine 2.08. Blood gas has not been done until he arrived in the ICU. PH of 7.27, CO2 of 29, PO2 of 79. Urinalysis just showed mainly glucosuria and ketonuria. IMPRESSION AND PLAN: Diabetic ketoacidosis, most likely related to medical noncompliance and substance abuse. I agree with current management. He has a clear chest x-ray. There is no indication that he is developing respiratory muscle fatigue and would need intubation, so we will follow closely. CRITICAL CARE TIME: 30 minutes. Job ID: [id number]
[2019-09-10] MEDS: D5 1/2 NS w/20 mEq KCL 1,000 ML IV PRN (18:09)
[2019-09-10 19:06] LABS: Amphetamine Not Detected (NotDetected); Barbiturates Screen Not Detected (NotDetected); Benzodiazepine Screen Not Detected (NotDetected); Cocaine Metabolite Screen Not Detected (NotDetected); Medtox Reader # READER 1; Methadone Not Detected (NotDetected); Methamphetamine Not Detected (NotDetected); Opiate Screen Not Detected (NotDetected); Oxycodone Screen Not Detected (NotDetected); Phencyclidine (PCP) Not Detected (NotDetected); Tricyclic Screen Not Detected (NotDetected)
[2019-09-10 19:07] LABS: Medtox Control Line Valid? VALID (VALID)
[2019-09-10 20:55] LABS: Anion Gap 12 mmol/L (10-20); BUN (Urea Nitrogen) 55 mg/dL (8.4-25.7); Calc. Creatinine Clearance 46 mL/min (70-130); Calcium 7.5 mg/dL (7.8-10.44); Carbon Dioxide 20 mmol/L (23-31); Chloride 108 mmol/L (98-107); Estimated GFR-MDRD 44; Glucose 168 mg/dL (80-115); Potassium 4.1 mmol/L (3.5-5.1); Sodium 136 mmol/L (136-145)
--- NOTE | 2019-09-10 20:55 | PDOC.HHP ---
Hospitalist HPI - History of Present Illness Confusion History of Present Illness: This is a 63-year-old male with past medical history of hypertension, diabetes mellitus on insulin, and anxiety disorder who was brought to the hospital in a confused state. The patient is a poor historian and no reliable information can be obtained from him, in the ER, the patient was found to be in a state of shock and was given multiple boluses of IV fluids. He was subsequently placed on IV Levophed. The patient sugar level was found to be elevated greater than 800 and his laboratory work-up revealed DKA. Hospitalist ROS - Review of Systems ROS unobtainable: due to mental status - Medication Medications: Active Medications Generic Name Dose Route Start Last Admin Trade Name Freq PRN Reason Stop Dose Admin Potassium Chloride/Dextrose/Sod Cl 1,000 mls @ 250 mls/hr 09/10/19 12:25 18:09 D5 1/2 Ns W/20 Meq Kcl IV 1,000 mls .Q4H PRN Administration Step 4 of DKA Protocol Protocol Potassium Chloride/Sodium Chloride 1,000 mls @ 250 mls/hr 09/10/19 12:25 17:45 Ns 0.9% W/ 20 Meq Kcl IV 1,000 mls .Q4H PRN Administration SEE STEP 3 OF DKA PROTOCOL Protocol Sodium Chloride 10 ml 09/10/19 21:00 09/10/19 20:32 Flush - Normal Saline IVF 10 ml Q12HR MIMI Administration - Exam General Appearance: ill appearing Eye: PERRL ENT: normocephalic atraumatic Neck: supple, no JVD Heart: RRR, no murmur, no gallops, no rubs Respiratory: CTAB, no wheezes, no rales, no ronchi Gastrointestinal: soft, non-tender, non-distended, normal bowel sounds Hospitalist Results - Labs Result Diagrams: 09/10/19 07:00 09/10/19 16:35 Lab results: WBC 13.9 thou/uL (4.8-10.8) H 09/10/19 07:00 Hgb 14.7 g/dL (14.0-18.0) 09/10/19 07:00 Hct 45.4 % (42.0-52.0) 09/10/19 07:00 MCV 92.3 fL (78.0-98.0) 09/10/19 07:00 Plt Count 357 thou/uL (130-400) 09/10/19 07:00 Neutrophils % 89.0 % (42.0-75.0) H 09/10/19 07:00 ABG pH 7.27 (7.35-7.45) L 09/10/19 15:06 ABG pCO2 29.2 mmHg (35.0-45.0) L 09/10/19 15:06 ABG pO2 79.8 mmHg (> 80.0) 09/10/19 15:06 Sodium 133 mmol/L (136-145) L 09/10/19 16:35 Potassium 4.4 mmol/L (3.5-5.1) 09/10/19 16:35 Chloride 105 mmol/L (98-107) 09/10/19 16:35 Carbon Dioxide 17 mmol/L (23-31) L 09/10/19 16:35 BUN 65 mg/dL (8.4-25.7) H 09/10/19 16:35 Creatinine 2.08 mg/dL (0.7-1.3) H 09/10/19 16:35 Glucose 296 mg/dL (80-115) H 09/10/19 16:35 Lactic Acid 2.6 mmol/L (0.5-2.2) H 09/10/19 12:11 Calcium 7.4 mg/dL (7.8-10.44) L 09/10/19 16:35 Total Bilirubin 0.7 mg/dL (0.2-1.2) 09/10/19 07:00 AST 10 U/L (5-34) 09/10/19 07:00 ALT 13 U/L (8-55) 09/10/19 07:00 Alkaline Phosphatase 107 U/L (40-110) 09/10/19 07:00 Serum Total Protein 7.4 g/dL (5.8-8.1) 09/10/19 07:00 Albumin 3.9 g/dL (3.4-4.8) 09/10/19 07:00 Lipase 33 U/L (8-78) 09/10/19 07:00 Urine Ketones 40 mg/dL (Negative) A 09/10/19 12:34 Urine Blood Negative (Negative) 09/10/19 12:34 Urine Nitrite Negative (Negative) 09/10/19 12:34 Ur Leukocyte Esterase Negative Bety/uL (Negative) 09/10/19 12:34 Hospitalist H&P A/P - Problem (1) DKA (diabetic ketoacidoses) Code(s): E11.10 - TYPE 2 DIABETES MELLITUS WITH KETOACIDOSIS WITHOUT COMA Status: Acute (2) Hypovolemic shock Code(s): R57.1 - HYPOVOLEMIC SHOCK Status: Acute (3) Hyponatremia Code(s): E87.1 - HYPO-OSMOLALITY AND HYPONATREMIA Status: Acute (4) Hyperkalemia Code(s): E87.5 - HYPERKALEMIA Status: Acute (5) FARHEEN (acute kidney injury) Code(s): N17.9 - ACUTE KIDNEY FAILURE, UNSPECIFIED Status: Acute (6) Acute kidney injury Code(s): N17.9 - ACUTE KIDNEY FAILURE, UNSPECIFIED Status: Acute - Plan Plan: Admit to CCU. Continue IV fluids, electrolyte replacements, and insulin drip according to DKA protocol. Check orders for details. Continue IV Levophed to maintain map of greater than 65.
[2019-09-11 04:44] LABS: Anion Gap 9 mmol/L (10-20); BUN (Urea Nitrogen) 40 mg/dL (8.4-25.7); Calc. Creatinine Clearance 58 mL/min (70-130); Calcium 7.6 mg/dL (7.8-10.44); Carbon Dioxide 21 mmol/L (23-31); Chloride 108 mmol/L (98-107); Estimated GFR-MDRD 57; Glucose 243 mg/dL (80-115); Potassium 4.3 mmol/L (3.5-5.1); Sodium 134 mmol/L (136-145)
[2019-09-11] MEDS: D5 1/2 NS w/20 mEq KCL 1,000 ML IV PRN (10:46)
[2019-09-11 11:13] LABS: THC/Cannabinoid Screen Detected (NotDetected)
[2019-09-11] MEDS ORDERED: Insulin Glargine 18 UNITS in Pre-Filled Syringe 1 EACH SC SCH ×2 (12:00→21:00)
--- NOTE | 2019-09-11 12:14 | PRG ---
DATE OF SERVICE: 09/11/2019 SUBJECTIVE: Ja is stabilized. He is much more alert and quick to answer questions. OBJECTIVE: VITAL SIGNS: Blood pressure 164/75, heart rate 86, respiratory rate is 19, oximetry is 99. LUNGS: Clear. HEART: Regular rhythm. ABDOMEN: Soft. LABORATORY DATA: Cultures of urine are negative. IMPRESSION: 1. Diabetic ketoacidosis secondary to noncompliance. He admitted to that today. 2. Ongoing drug use. 3. He is stable to transfer out of the Critical Care Unit in my opinion. We will sign off. Job ID: [id number]
[2019-09-11 12:42] VITALS: TEMP 98.5
[2019-09-12] MEDS ORDERED: Insulin Glargine 18 UNITS in Pre-Filled Syringe 1 EACH SC SCH (09:00)
== END 2019-09-11 16:32 | disposition home or self-care (01) | DRG 637 ==
LOC: ERS 06:41 → CCU 12:31
PROVIDERS: ADMIT Internal Medicine; ATTEND Internal Medicine
DX: E11.10 Type 2 diabetes mellitus with ketoacidosis without coma (principal); R57.1 Hypovolemic shock; E87.1 Hypo-osmolality and hyponatremia; N17.9 Acute kidney failure, unspecified; E11.65 Type 2 diabetes mellitus with hyperglycemia; I10 Essential (primary) hypertension; E78.00 Pure hypercholesterolemia, unspecified; F41.9 Anxiety disorder, unspecified; F32.9 Major depressive disorder, single episode, unspecified; F19.10 Other psychoactive substance abuse, uncomplicated; E87.5 Hyperkalemia; F17.210 Nicotine dependence, cigarettes, uncomplicated; Z79.4 Long term (current) use of insulin; Z87.442 Personal history of urinary calculi; Z91.14 Patient's other noncompliance with medication regimen
CPT/HCPCS: 36415; 36416; 36556; 71045; 80053; 80306; 81003; 82010; 82805; 83605; 83690; 83735; 84100; 85025; 87086; 93005; 96360; 96361; 96365; 96366; 96376; 99292; J1815; J3480; J3490

== ENCOUNTER 2019-11-01 22:12 | Inpatient (IN) | payer OTHER ==
[2019-11-01 22:34] LABS: #Monocytes 0.9 thou/uL (0.11-0.59); %Basophils 0.1 % (0.0-1.0); %Eosinophils 0.2 % (0.0-10.0); %Lymphocytes 8.8 % (21.0-51.0); %Monocytes 7.9 % (0.0-10.0); Mean Corpuscular HGB CONC 34.5 g/dL (32.0-36.0); Mean Corpuscular Hemoglobin 30.7 pg (27.0-31.0); Mean Corpuscular Volume 88.9 fL (78.0-98.0); Platelet Count 201 thou/uL (130-400); RBC Distribution Width 13.5 % (11.5-14.5); Red Blood Cell (RBC) Count 3.91 mill/uL (4.70-6.10); White Blood Cell (WBC) Count 10.8 thou/uL (4.8-10.8)
[2019-11-01 22:48] LABS: Base Excess-Venous -11.9 mmol/L (-2.0 to 3.0); Bicarbonate (HCO3v) 12.7 mmol/L (22.0-28.0); Chloride 100 mmol/L (98-107); Hemoglobin - Calc 11.5 g/dL (14.0-18.0); Potassium 5.3 mmol/L (3.5-5.1); Sodium 127 mmol/L (138-145); T. Carbon Dioxide 13.4 mmol/L (22.0-28.0); vO2 Saturation-calc 98.2 % (60.0-85.0)
[2019-11-01 22:57] LABS: ALT (SGPT) 14 U/L (8-55); AST (SGOT) 32 U/L (5-34); Albumin 3.7 g/dL (3.4-4.8); Alkaline Phosphatase 95 U/L (40-110); Anion Gap 25 mmol/L (10-20); BUN (Urea Nitrogen) 55 mg/dL (8.4-25.7); Bilirubin, Total 0.6 mg/dL (0.2-1.2); Calc. Creatinine Clearance 0 mL/min (70-130); Calcium 8.8 mg/dL (7.8-10.44); Carbon Dioxide 10 mmol/L (23-31); Chloride 99 mmol/L (98-107); Estimated GFR-MDRD 24; Globulin 2.7 g/dL (2.4-3.5); Potassium 5.4 mmol/L (3.5-5.1); Protein, Total 6.4 g/dL (5.8-8.1); Sodium 129 mmol/L (136-145)
[2019-11-01 23:04] LABS: Glucose 637 mg/dL (80-115)
--- NOTE | 2019-11-01 23:08 | RAD ---
AP CHEST: History: Hyperglycemia. Comparison: 09-10-2019 FINDINGS: The lungs appear clear. No infiltrate identified. Heart and mediastinum unremarkable and stable in ap pearance. No evidence of vascular congestion or edema. IMPRESSION: No acute process. POS: [facility]
[2019-11-01 23:29] LABS: Bacteria/HPF Rare-Few HPF (None Seen); Bilirubin Negative (Negative); Blood, Urine 1+ (Negative); Clarity Clear (Clear); Glucose, Urine (Dipstick) Greater than 1000 mg/dL (Negative); Leukocyte Negative Leu/uL (Negative); Nitrite Negative (Negative); Protein, Urine (Dipstick) 10 mg/dL (Neg-Trace); RBC/HPF 0-3 HPF (0-3); Squamous Epithelial 0-3 HPF (0-3); Urobilinogen Normal mg/dL (Less than 2); WBC/HPF 0-3 HPF (0-3)
[2019-11-01] MEDS ORDERED: Insulin Regular 100 units/100 ml in NS IVPB SCH (23:30)
[2019-11-01 23:33] LABS: Acetaminophen Less than 6.0 mcg/mL (10.0-30.0); Alcohol Less than 10 mg/dL (Less than 10); Salicylate Less than 8.0 mg/dL (15.0-30.0)
[2019-11-01 23:38] LABS: Medtox Reader # READER 4; THC/Cannabinoid Screen Detected (NotDetected)
[2019-11-01 23:39] LABS: Amphetamine Detected (NotDetected); Barbiturates Screen Not Detected (NotDetected); Benzodiazepine Screen Not Detected (NotDetected); Cocaine Metabolite Screen Not Detected (NotDetected); Medtox Control Line Valid? VALID (VALID); Methadone Not Detected (NotDetected); Methamphetamine Detected (NotDetected); Opiate Screen Not Detected (NotDetected); Oxycodone Screen Not Detected (NotDetected); Phencyclidine (PCP) Not Detected (NotDetected); Tricyclic Screen Not Detected (NotDetected)
[2019-11-01] MEDS ORDERED: Aspirin Chewable 81 MG TAB ONE (23:43)
--- NOTE | 2019-11-01 23:47 | CT ---
CT HEAD WITHOUT CONTRAST: History: Mental status change. Hyperglycemia. Comparison: Head CT 04-14-19 FINDINGS: Ventricles have normal size and position. There is no evidence of intracranial mass, hemorrhage, infa rct or other acute process. No interval change noted. There is asymmetric widening of the dysphoric space of the left parietal bone. This is a stable findi ng from the prior exam. Sinuses are clear. IMPRESSION: No acute process. POS: [facility]
--- NOTE | 2019-11-02 00:25 | PDOC.FPRHP ---
- History of Present Illness Chief Complaint: Hyperglycemia History of Present Illness: 63 yo with pmh of DM, HTN, and HLD who presents for hyperglycemia. EMS was called by due to patient not acting himself. When EMS arrived, he was found to have a blood glucose > 500. He was given 1L of NS and his home insulin. He was then transported to [facility]. Patient said he did not take his insulin today. He denies any chest pain, nausea, or vomiting. ED Course: In the ED, he was given ASA, 7U of Novolin, and 2L of NS. The patient had a CT head which was negative, CXR which was negative. UA showed glucose > 1000 with 60 ketones. BHB was 5.28. UDS was positive for THC, Meth, and Amphetamines. LA wa 1.3. Troponin was 13.429 with CKMB of 31. EKG was normal sinus rhythm. - Allergies/Adverse Reactions Allergies Allergy/AdvReac Type Severity Reaction Status Date / Time No Known Drug Allergies Allergy Verified 11/02/19 01:59 - Home Medications Medication Instructions Recorded Confirmed Type Lisinopril [Zestril] 5 mg PO DAILY #30 tab 04/16/19 09/10/19 Rx Insulin Glargine,Hum.Rec.Anlog 18 unit SC DAILY #4 pen 09/11/19 Rx [Lantus Solostar] Insulin Glargine,Hum.Rec.Anlog 18 unit SC HS #4 pen 09/11/19 Rx [Lantus Solostar] metFORMIN [Glucophage] 500 mg PO BID-WM #60 tab 09/11/19 Rx - History PMHx: DMII, HTN, HLD PSHx: None FHx: Non-contributory Social: Smokes tobacco products, drinks alcohol, and uses recreational drugs. - Review of Systems General: denies: fever/chills Eyes: denies: vision changes ENT: denies: nasal congestion, rhinorrhea Respiratory: denies: cough, congestion, shortness of breath Cardiovascular: denies: chest pain, edema Gastrointestinal: denies: nausea, vomiting, diarrhea, constipation, abdominal pain Skin: denies: rashes, lesions Musculoskeletal: denies: pain Neurological: denies: numbness, weakness - Vital signs BP: 113/72 HR: 102 RR: 13 Tmax: 97.5 Pox: 95% on RA Wt: 74.84 kg - Physical Exam Constitutional: NAD HEENT: normocephalic and atraumatic, PERRLA, conjunctiva clear, grossly normal hearing, normal nasal mucosa, oropharynx clear Neck: supple, no LAD Chest: no-tender to palpation Heart: RRR, normal S1/S2, no murmurs/rubs/gallops, pulses present, no edema Lungs: CTAB, no respiratory distress, good air movement, no rales/rhonchi, no wheezing, no retractions Abdomen: soft, non-tender, bowel sounds present Musculoskeletal: normal structure, normal tone, ROM grossly normal Neurological: CN II-XII intact, normal sensation -Neurological: Strength 4/5 in upper extremities, 5/5 in lower extremities Skin: no rash/lesions Heme/Lymphatic: no unusual bruising or bleeding, no purpura, no petechia FMR H&P: Results - Labs Result Diagrams: 11/02/19 05:17 11/02/19 09:20 Lab results: WBC 10.8 thou/uL (4.8-10.8) 11/01/19 22:28 Hgb 12.0 g/dL (14.0-18.0) L 11/01/19 22:28 Hct 34.7 % (42.0-52.0) L 11/01/19 22:28 MCV 88.9 fL (78.0-98.0) 11/01/19 22:28 Plt Count 201 thou/uL (130-400) 11/01/19 22:28 Neutrophils % 83.0 % (42.0-75.0) H 11/01/19 22:28 VBG pCO2 25.0 mmHg (40.0-50.0) L 11/01/19 22:46 VBG pO2 114.3 mmHg (35.0-45.0) H 11/01/19 22:46 Sodium 129 mmol/L (136-145) L 11/01/19 22:28 Potassium 5.4 mmol/L (3.5-5.1) H 11/01/19 22:28 Chloride 99 mmol/L (98-107) 11/01/19 22:28 Carbon Dioxide 10 mmol/L (23-31) L 11/01/19 22:28 BUN 55 mg/dL (8.4-25.7) H 11/01/19 22:28 Creatinine 2.68 mg/dL (0.7-1.3) H 11/01/19 22:28 Glucose 637 mg/dL (80-115) H* 11/01/19 22:28 Lactic Acid 1.3 mmol/L (0.5-2.2) 11/01/19 22:58 Calcium 8.8 mg/dL (7.8-10.44) 11/01/19:28 Total Bilirubin 0.6 mg/dL (0.2-1.2) 11/01/19 22:28 AST 32 U/L (5-34) 11/01/19: ALT 14 U/L (8-55) 11/01/19: Alkaline Phosphatase 95 U/L (40-110) 11/01/19: Ammonia 24 umol/L (18-72) 11/01/19:58 CK-MB (CK-2) 31.0 ng/mL (0-6.6) H* 11/01/19 22:58 Serum Total Protein 6.4 g/dL (5.8-8.1) 11/01/19 22: Albumin 3.7 g/dL (3.4-4.8) 11/01/19: Lipase 17 U/L (8-78) 11/01/19 22:28 Urine Ketones 60 mg/dL (Negative) A 11/01/19 22:57 Urine Blood 1+ (Negative) A 11/01/19:57 Urine Nitrite Negative (Negative) 11/01/19:57 Ur Leukocyte Esterase Negative Bety/uL (Negative) 11/01/19:57 Urine RBC 0-3 HPF (0-3) 11/01/19 22:57 Urine WBC 0-3 HPF (0-3) 11/01/19 22:57 Ur Squamous Epith Cells 0-3 HPF (0-3) 11/01/19:57 Urine Bacteria Rare-Few HPF (None Seen) 11/01/19 22:57 - EKG Interpretation EKG: normal sinus rhythm FMR H&P: A/P - Problem List (1) DKA (diabetic ketoacidoses) Current Visit: No Status: Acute Code(s): E11.10 - TYPE 2 DIABETES MELLITUS WITH KETOACIDOSIS WITHOUT COMA (2) Hyperlipidemia Current Visit: Yes Status: Acute Code(s): E78.5 - HYPERLIPIDEMIA, UNSPECIFIED (3) Hypertension Current Visit: No Status: Acute Code(s): I10 - ESSENTIAL (PRIMARY) HYPERTENSION - Plan 63 yo with pmh of DM, HTN, and HLD who presents for hyperglycemia. 1. DKA B * UA: >1000 glucose, ketones-60 * Beta hydoxrybutyrate: 5.28 * VBG: pH-7.314, CO2-25, HCO3-12.7, BE- -11.9 * A * DKA protocol * BMP Q4H * ACHS Q1H 2. Elevated Troponin Trop: 13.429 * Will trend trops * Clinically the patient is experiencing no chest pain * Will repeat EKG * If status changes or trops increase, will consult cardiology * Previous positive trop: 0.342 3. DMII Home Medications: Novolin 18 U BID, Metformin * Will hold Metformin * Will start SSI & home insulin once gap has closed 4. HTN Home Med: Lisinopril- will hold for now * Cre: 2.68 * Will continue to monitor blood pressures 5. FARHEEN Cre: 2.68 * Last admission before discharge 1.27 * Baseline appears to be 0.8-0.9 Code Status: Full Diet: NPO IVF: per DKA protocol Activity: Ambulate with Assist DVT PPx: SCDs, will hold on Heparin for now GI PPx: Famotidine Dispo: IMCU inpt for DKA, LOS > 48H. Will await anion gap closure and trend trops. FMR H&P: Upper Level - Plan Date/Time: 11/02/19 0024 IGordo MD, have evaluated this patient and agree with findings/plan as outlined by senior internal auditor resident. Pertinent changes/additions are listed here. Lyle Peres is a 63 year old M with a PMH of DM2, HTN, HLD who presented to the ED due to altered mental status and hyperglycemia. Pts noticed onset of symptoms today and called EMS, when they arrived, his blood sugar was in the 500s. He was given home dose of insulin and 1 L NS. He states that he forgot to take his insulin today. Normally takes 70/30 17 U BID. He denies any other complaints, headaches, vision changes, fever, chills, chest pain, dyspnea, palpitations, n/v, abdominal pain. In the ED, he was given ASA 81 mg, 2 L NS, and started on an insulin gtt. EKG showed NSR. Labs were trop 13.4, UA showed > 1000 gluc and 60 ketones, beta hydroxybuturate 5.2, Lactic acid 1.3, UDS positive for THC and meth and amphetamines. VBG pH was 7.314. Anion gap 20. Na 129, K 5.4, Cl 99, HCO3 10, BUN 55, Cr 2.68, gluc 637. CT head showed no acute findings, CXR showed no acute cardipulmonary process. On exam, he was slow to answer questions and A&OX 2. Alert with stimulus and cooperative. Nontoxic. HEENT: dry MM, AT/NC, PERRL, EOMI. Heart: RRR no murmurs, Lungs CTAB, Abd soft/nt/nd, no guarding or rigidity, Ext no cynosis or edema. Admitting to IMCU for acute metabolic encephalopathy 2/2 DKA. Likely due to medication nonadherence and drug use. DKA: started on insulin gtt, will continue protocol. NSTEMI: trop 13.4, no chest pain or EKG changes. Trend cardiac enzymes and repeat EKGs. If continued rise in trop will start therapeutic anticoagulation. If EKG changes, will immediately consult cards. ERMD did not notify cardiology prior to admission. Will consult cardiology regardless in AM. Please see senior internal auditor note above which I have reviewed and agree with. Code status: FULL CODE. PCP: IA Addendum - Attending - Attending Attestation Date/Time: 11/02/19 3620 I personally evaluated the patient and discussed the management with the team. I agree with the History, Examination, Assessment and Plan documented above with any addition or exceptions noted below. Patient sleepy but arousable and will briefly answer questions before returning to sleep. Nonfocal exam. Several scrapes and cuts on BUE. Poor dentition. RRR s M, CTAB s w/r/r. BS+, NTTP, scaphoid. Stage 1 decub sacral per RN. A/P: DKA with FARHEEN, hyponatremia, mild hyperK -insulin gtt and fluids per DKA protocol -recheck BMP Elevated TnI in setting of DKA and methamphetamine abuse -he has refused any symptoms after extensive questioning -repeat EKG, which was apparently not performed overnight despite order, should be performed -cards if symptoms or EKG changes
[2019-11-02] MEDS ORDERED: Sodium Chloride 0.9% 1,000 ML IV PRN ×8 (00:56→01:04)
[2019-11-02] MEDS ORDERED: Dextrose 5 %-0.45 % NaCl 1,000 ML IV PRN ×2 (00:56→01:04)
[2019-11-02] MEDS ORDERED: NS 0.9% w/ 20 MEQ KCL 1,000 ML IV PRN ×2 (00:56)
[2019-11-02] MEDS ORDERED: Ondansetron PF 4 MG/2 ML Vial IVP PRN ×2 (00:56→01:05)
[2019-11-02] MEDS ORDERED: D5 1/2 NS w/20 mEq KCL 1,000 ML IV PRN ×2 (00:56→01:04)
[2019-11-02] MEDS ORDERED: Dextrose 5% in Water 1,000 ML IV PRN ×2 (00:56→01:04)
[2019-11-02] MEDS ORDERED: Acetaminophen 650 MG Suppository PR PRN (00:56)
[2019-11-02] MEDS ORDERED: Dextrose 50% Abboject 50 ML SYRINGE SLOW IVP PRN ×2 (00:56→01:04)
[2019-11-02] MEDS ORDERED: Ondansetron ODT 4 MG TAB PO PRN (00:56)
[2019-11-02] MEDS ORDERED: CCU Electrolyte Replacement 1 EACH IVPB ONE (00:56)
[2019-11-02] MEDS ORDERED: Acetaminophen 325 MG TAB PO PRN ×2 (00:56→01:05)
[2019-11-02] MEDS ORDERED: Senokot S 8.6-50 MG TAB PO PRN (00:56)
[2019-11-02] MEDS ORDERED: HUMULIN R 100 UNITS in Sodium Chloride 0.9% 100 ML IVPB SCH ×2 (01:00→01:15)
[2019-11-02] MEDS ORDERED: NS 0.9% w/ 20 MEQ KCL 1,000 ML/1,000 ML BAG IV PRN ×2 (01:04)
[2019-11-02] MEDS ORDERED: Ondansetron ODT 4 MG TAB SL PRN (01:05)
[2019-11-02] MEDS ORDERED: Insulin Regular 300 UNITS/3 ML VIAL IVP SCH (01:15)
[2019-11-02] MEDS ORDERED: ADD ELECTROLYTE REPLACEMENT SET TO PROFILE FS SCH (01:15)
[2019-11-02 01:25] VITALS: BMI 21.2
[2019-11-02] MEDS ORDERED: Potassium Phosphate 12 MMOL in Sodium Chloride 0.9% 250 ML 250 ML IV PRN ×2 (01:25→01:35)
[2019-11-02] MEDS ORDERED: Potassium Phosphate 15 MMOL in Sodium Chloride 0.9% 250 ML 250 ML IV PRN ×2 (01:25→01:35)
[2019-11-02] MEDS ORDERED: Potassium Phosphate 9 MMOL in Sodium Chloride 0.9% 100 ML IVPB PRN ×2 (01:25→01:35)
[2019-11-02] MEDS ORDERED: Potassium Chloride 40 MEQ in Sodium Chloride 0.9% 250 ML 250 ML IVPB PRN ×2 (01:25→01:35)
[2019-11-02] MEDS ORDERED: Magnesium Oxide 400 MG TAB PO PRN ×4 (01:25→01:35)
[2019-11-02] MEDS ORDERED: PHOS-NAK 1 PKT PACK PO PRN ×4 (01:25→01:35)
[2019-11-02] MEDS ORDERED: CCU ELECTROLYTE REPLACEMENT PROTOCOL FS PRN ×2 (01:25→01:35)
[2019-11-02] MEDS ORDERED: Magnesium 2 GM/50 ML 2 GM in Premix Bag 1 BAG IVPB PRN ×2 (01:25→01:35)
[2019-11-02] MEDS ORDERED: Potassium Chloride 20 MEQ TAB PO PRN ×2 (01:25→01:35)
[2019-11-02] MEDS ORDERED: Potassium Chloride 40 MEQ in Premix Bag 1 BAG IVPB PRN ×2 (01:25→01:35)
[2019-11-02] MEDS ORDERED: Heparin 10,000 UNITS/ 10 ML VIAL SLOW IVP SCH (01:30)
[2019-11-02] MEDS ORDERED: Heparin 25,000 units/D5W 500 ML IVPB SCH (01:30)
[2019-11-02 01:59] LABS: Phosphorus 3.4 mg/dL (2.3-4.7)
[2019-11-02 02:01] LABS: Anion Gap 19 mmol/L (10-20); BUN (Urea Nitrogen) 50 mg/dL (8.4-25.7); Calc. Creatinine Clearance 30 mL/min (70-130); Calcium 8.5 mg/dL (7.8-10.44); Carbon Dioxide 14 mmol/L (23-31); Chloride 106 mmol/L (98-107); Estimated GFR-MDRD 29; Glucose 388 mg/dL (80-115); Potassium 4.3 mmol/L (3.5-5.1); Sodium 135 mmol/L (136-145)
[2019-11-02 02:11] LABS: Critical Call Chem Troponin I RESULT DECREASING
[2019-11-02 05:37] LABS: #Lymphocytes 1.4 thou/uL (1.20-3.40); #Monocytes 0.8 thou/uL (0.11-0.59); #Neutrophils 7.3 thou/uL (1.40-6.50); %Basophils 0.1 % (0.0-1.0); %Eosinophils 0.2 % (0.0-10.0); %Lymphocytes 14.9 % (21.0-51.0); %Monocytes 8.2 % (0.0-10.0); %Neutrophils 76.6 % (42.0-75.0); Hemoglobin 11.4 g/dL (14.0-18.0); Mean Corpuscular HGB CONC 34.6 g/dL (32.0-36.0); Mean Corpuscular Hemoglobin 30.2 pg (27.0-31.0); Mean Corpuscular Volume 87.4 fL (78.0-98.0); Mean Platelet Volume 7.1 fL (7.4-10.4); Platelet Count 198 thou/uL (130-400); RBC Distribution Width 13.7 % (11.5-14.5); Red Blood Cell (RBC) Count 3.78 mill/uL (4.70-6.10); White Blood Cell (WBC) Count 9.5 thou/uL (4.8-10.8)
[2019-11-02 05:59] LABS: Anion Gap 13 mmol/L (10-20); BUN (Urea Nitrogen) 42 mg/dL (8.4-25.7); Calc. Creatinine Clearance 41 mL/min (70-130); Calcium 8.4 mg/dL (7.8-10.44); Carbon Dioxide 17 mmol/L (23-31); Chloride 112 mmol/L (98-107); Estimated GFR-MDRD 42; Glucose 120 mg/dL (80-115); Potassium 3.8 mmol/L (3.5-5.1); Sodium 138 mmol/L (136-145)
[2019-11-02 06:10] LABS: Critical Call Chem Troponin I RESULT DECREASING; Troponin I 9.472 ng/mL (< 0.028)
[2019-11-02] MEDS ORDERED: Famotidine 20 MG TAB PO SCH (09:00)
[2019-11-02] MEDS ORDERED: Insulin Glargine 18 UNITS in Pre-Filled Syringe 1 EACH SC SCH ×2 (09:00→21:00)
[2019-11-02 09:57] LABS: Anion Gap 12 mmol/L (10-20); BUN (Urea Nitrogen) 36 mg/dL (8.4-25.7); Calc. Creatinine Clearance 45 mL/min (70-130); Carbon Dioxide 21 mmol/L (23-31); Chloride 110 mmol/L (98-107); Estimated GFR-MDRD 47; Glucose 93 mg/dL (80-115); Potassium 4.2 mmol/L (3.5-5.1); Sodium 139 mmol/L (136-145)
[2019-11-02] MEDS ORDERED: Aspirin 81 mg Enteric Coated Tablet PO SCH (10:15)
--- NOTE | 2019-11-02 11:35 | CON ---
DATE OF CONSULTATION: 11/02/2019 REASON FOR CONSULTATION: Increased troponin level in the setting of altered mental status, diabetic ketoacidosis, hypertension, dyslipidemia, and methamphetamine addiction. HISTORY OF PRESENT ILLNESS: Mr. Peres is a very pleasant 63-year-old man. The patient has had hospitalizations now with diabetic ketoacidosis on several occasions. The patient unfortunately does smoke for many years. Also has hyperlipidemia, hypertension, and methamphetamine addiction. He has no chest pain or pressure. He is not aware of any previous cardiac problems. The patient has required large volumes of intravenous fluid and insulin to help reverse his diabetic ketoacidosis. He is also on statin currently. REVIEW OF SYSTEMS: CONSTITUTIONAL: No significant chest pain or pressure previously. PULMONARY: No difficulty breathing. GASTROINTESTINAL: No nausea, vomiting, or diarrhea. SKIN: No rashes. NEUROLOGIC: No unilateral weakness or numbness. PSYCHIATRIC: No unusual depression or anxiety. DENTAL: The patient has lost almost all his teeth. He says he is going to have the rest pulled out. SOCIAL HISTORY: He continues to smoke. He says he has been unfortunately dependent on methamphetamine for about 5 years. Unfortunately, where he lives now is very readily available, easily accessible he tells me. PHYSICAL EXAMINATION: GENERAL: This is an underweight 63-year-old gentleman with only a few teeth left. VITAL SIGNS: His blood pressure is 123/70 and pulse is 100 and sinus. LUNGS: Clear. CARDIAC: Normal S1 and normal S2. No murmur, rub, or gallop. ABDOMEN: Soft and nontender. EXTREMITIES: Warm and dry. No clubbing or cyanosis. There is no edema. PSYCHIATRIC: Mood and affect are currently normal. PERTINENT LABORATORY DATA: The peak troponin was 11.08 on the th and 13 on the , therefore actually the enzymes are now coming down. I do not see a cholesterol level drawn here. The creatinine is coming down a peak at 2.68 on the 12th, still 1.52. EKG shows no acute changes. ASSESSMENT: 1. Nhz-EQ-dwjubcere myocardial infarction, likely type 2, demand ischemia. 2. Probably has underlying coronary artery disease. 3. Diabetes. 4. Long history of smoking. 5. Methamphetamine addiction. PLAN: We had a discussion with this gentleman. Unfortunately, I think if he continues to have uncontrolled diabetes, smoke, and continue methamphetamine, the chance of in the next few years is extremely high. We talked about the importance of trying to quit using methamphetamine. The patient states he sincerely wishes to attempt trying. He says unfortunately where he lives now is extremely readily available, I asked him if he could maybe try to get involved in the rehabilitation program through the [place] with some support systems. Unfortunately, regardless of medical therapy, if he continues to use methamphetamine, the patient will likely have a very abbreviated life span, very high risk of . In the meantime: 1. Agree with statins. 2. Aspirin. 3. Okay to use beta blockers. He is still mildly hypotensive intermittently. His blood pressure currently in the cheer as 98/60. 4. Echocardiogram. 5. Cannot use ERIC inhibitors with history of renal failure. 6. I encouraged the patient to pursue strategies to try to help him to cease his methamphetamine addiction. Job ID: [id number]
[2019-11-02] MEDS: HumaLOG 300 UNITS/3 ML VIAL SC PRN ×2 (17:28→21:08)
[2019-11-02] MEDS ORDERED: Atorvastatin Calcium 40 MG TAB PO SCH (21:00)
[2019-11-03 05:00] VITALS: TEMP 97.7
[2019-11-03 05:59] LABS: Anion Gap 11 mmol/L (10-20); BUN (Urea Nitrogen) 24 mg/dL (8.4-25.7); Calc. Creatinine Clearance 74 mL/min (70-130); Calcium 8.7 mg/dL (7.8-10.44); Carbon Dioxide 23 mmol/L (23-31); Chloride 110 mmol/L (98-107); Estimated GFR-MDRD 83; Potassium 3.5 mmol/L (3.5-5.1); Sodium 140 mmol/L (136-145)
[2019-11-03 06:01] LABS: Glucose 52 mg/dL (80-115)
--- NOTE | 2019-11-03 06:53 | PDOC.FM ---
- Subjective Subjective: Mr. Peres was in good spirits and feeling well this morning. Not as tired as yesterday. Says he was unaware of the hypoglycemic episode this am, he was sleeping and asymptomatic. - Objective Vital Signs & Weight: Vital Signs (12 hours) Temp Pulse Resp BP BP Pulse Ox 11/03/19 04:00 97.7 F 80 18 102/64 96 11/03/19 00:00 97.8 F 89 18 106/69 97 11/02/19 20:00 99 11/02/19 19:09 97.4 F L 88 18 99/64 99 Weight Admit Weight 63.304 kg Weight 63.304 kg Most Recent Monitor Data Heart Rate from ECG 86 NIBP 120/70 NIBP BP-Mean 86 Respiration from ECG 19 SpO2 98 I&O: 11/01/19 11/02/19 11/03/19 06:59 06:59 06:59 Intake Total 1850 720 Output Total 800 Balance 1850 -80 Result Diagrams: 11/02/19 05:17 11/03/19 05:12 Phys Exam - Physical Examination Constitutional: NAD HEENT: moist MMs Respiratory: no wheezing, clear to auscultation bilateral Cardiovascular: RRR, no significant murmur Gastrointestinal: soft, positive bowel sounds Musculoskeletal: no edema Neurological: non-focal Psychiatric: normal affect Skin: normal turgor Dx/Plan - Plan Plan: 63 yo with pmh of DM, HTN, and HLD who presents for hyperglycemia. DKA, resolved * UA: >1000 glucose, ketones-60, Beta hydoxrybutyrate: 5.28 * VBG: pH-7.314, CO2-25, HCO3-12.7, BE- -11.9 * transitioned of insulin drip 11/01, now adjusting home insulin regimen. Elevated Troponin, downtrended Trop: 13.429->9 * EKG NSR, no ST change. Patient asymptomatic. * Cardiology consulted, appreciate recommendations. Echo read pending. IDDMII Home Medications: Novolin 18 U BID, Metformin * Restart metformin HTN Home Med: Lisinopril- will hold for now * Will continue to monitor blood pressures FARHEEN, improved Cre: 2.68 * Last admission before discharge 1.27 * Baseline appears to be 0.8-0.9 Code Status: Full Diet: CC IVF: SL DVT PPx: SCDs Dispo: Pending echo read, otherwise is nearing discharge. Addendum - Attending - Attending Attestation Date/Time: 11/03/19 1026 I personally evaluated the patient and discussed the management with Dr. Kim. I agree with the History, Examination, Assessment and Plan documented above with any addition or exceptions noted below. Patient overall stable. Blood sugars improved, DKA resolved with resumption of home meds. Needs medical mgmt for likely CAD. Cardiology has no plans for further interventions at this time. Should be stable for dc later today. Needs to avoid illicit substances.
[2019-11-03] MEDS ORDERED: metFORMIN 500 MG TAB PO SCH (08:00)
[2019-11-03 08:46] VITALS: BP 110/70
[2019-11-03] MEDS ORDERED: Aspirin 81 mg Enteric Coated Tablet PO SCH (09:00)
[2019-11-03] MEDS ORDERED: Insulin Glargine 22 UNITS in Pre-Filled Syringe 1 EACH SC SCH (09:00)
[2019-11-03] MEDS ORDERED: Insulin Glargine 18 UNITS in Pre-Filled Syringe 1 EACH SC SCH (09:00)
[2019-11-03] MEDS: HumaLOG 300 UNITS/3 ML VIAL SC PRN (12:40)
--- NOTE | 2019-11-04 11:43 | DIS ---
DATE OF ADMISSION: 11/02/2019 DATE OF DISCHARGE: 11/03/2019 RESIDENT: Jessica Kim DO ADMITTING ATTENDING: Catalino Horan MD DISCHARGE ATTENDING: Jalen Cardenas MD CONSULTS: 1. Pulmonology, Eddie Palencia MD. 2. Cardiology, Jamin Campa MD. 3. Physical Therapy and Occupational Therapy. PROCEDURES PERFORMED: 11/03/2019, echocardiogram showed normal left ventricular size, ejection fraction 55% to 60%. Trace mitral regurgitation. No evidence of mitral valve stenosis. Structurally normal aortic valve with no significant stenosis or regurgitation. PRIMARY DIAGNOSES: 1. Diabetic ketoacidosis. 2. Elevated troponin. 3. Acute kidney injury. SECONDARY DIAGNOSES: 1. Insulin-dependent diabetes. 2. Hypertension. DISCHARGE MEDICATIONS: 1. Insulin glargine 16 units subcutaneous at bedtime. 2. Lisinopril 2.5 mg p.o. daily. 3. Atorvastatin 80 mg p.o. at bedtime. 4. Aspirin 81 mg p.o. daily. 5. Metformin 500 mg p.o. b.i.d. 6. Insulin glargine 18 units subcu daily. DISCONTINUED MEDICATIONS: 1. Lisinopril 5 mg p.o. daily. 2. Insulin glargine 18 units subcu at bedtime. HISTORY OF PRESENT ILLNESS: A 63-year-old male with past medical history of diabetes, hypertension, hyperlipidemia, presented for hyperglycemia. called EMS as the patient was not acting himself. EMS found a blood glucose greater than 500. The patient had not taken his insulin that day. He denied any chest pain, nausea, or vomiting. Laboratory studies were consistent with DKA. Additionally, UDS was positive for THC, meth, amphetamines. Initial troponin was 13.4 with CK-MB of 31. Troponins were trended and downtrended down to 9. The patient was never symptomatic and EKG was normal sinus rhythm without ST changes. Regardless, Cardiology was consulted. An echo was ordered with results as above. Medical management advised including statin, aspirin. In regard to DKA, he was started on insulin drip and this was transitioned back to subcutaneous insulin the following day. The patient did have morning hypoglycemia into the 50s that was asymptomatic. For this reason, his nighttime insulin dose was decreased from 18 to 16 units. In regard to his blood pressure, it was consistently in the low 100s systolic, so his lisinopril was decreased to 2.5 mg upon discharge. He did have an FARHEEN with initial creatinine of 2.68, which downtrended to 0.92 prior to discharge. Drug cessation was encouraged by multiple providers. DISPOSITION: Stable. DISCHARGE INSTRUCTIONS: 1. Location: Home. 2. Diet: Diabetic. 3. Activity: As tolerated. 4. Followup: Follow up with primary care physician at the [facility] within 1 week. Job ID: [id number]
--- NOTE | 2019-11-04 14:21 | EKG ---
Test Reason : Blood Pressure : / mmHG Vent. Rate : 091 BPM Atrial Rate : 091 BPM P-R Int : 130 ms QRS Dur : 094 ms QT Int : 376 ms P-R-T Axes : 078 055 089 degrees QTc Int : 462 ms Normal sinus rhythm with sinus arrhythmia Normal ECG Confirmed by EZEQUIEL SOLIS ([id number]) on 11/04/2019 2:21:04 PM Referred By: STEWART GREGORIO Confirmed By:EZEQUIEL SOLIS
== END 2019-11-03 13:10 | disposition home or self-care (01) | DRG 637 ==
LOC: ERS 22:12 → IMCU/EMU 11-02 00:22 → T4-B 11-02 16:35
PROVIDERS: ADMIT Emergency Medicine; ATTEND Emergency Medicine
DX: E11.10 Type 2 diabetes mellitus with ketoacidosis without coma (principal); I21.A1 Myocardial infarction type 2; N17.9 Acute kidney failure, unspecified; E87.1 Hypo-osmolality and hyponatremia; E87.5 Hyperkalemia; I10 Essential (primary) hypertension; E78.5 Hyperlipidemia, unspecified; F15.10 Other stimulant abuse, uncomplicated; R79.89 Other specified abnormal findings of blood chemistry; I25.10 Atherosclerotic heart disease of native coronary artery without angina pectoris; F17.200 Nicotine dependence, unspecified, uncomplicated; Z79.4 Long term (current) use of insulin
CPT/HCPCS: 36415; 36416; 70450; 71045; 80048; 80053; 80306; 80307; 81003; 81015; 82010; 82140; 82330; 82553; 82803; 83605; 83690; 83735; 84100; 84484; 85025; 93005; 93010; 93306; J1644; J1815; J3480; J3490

== ENCOUNTER 2020-01-09 22:25 | Emergency (ER) | payer OTHER ==
[2020-01-09 23:01] LABS: #Lymphocytes 0.4 thou/uL (1.20-3.40); #Monocytes 0.5 thou/uL (0.11-0.59); %Basophils 0.2 % (0.0-1.0); %Eosinophils 0.2 % (0.0-10.0); %Lymphocytes 3.7 % (21.0-51.0); %Monocytes 3.8 % (0.0-10.0); %Neutrophils 92.1 % (42.0-75.0); Hemoglobin 8.5 g/dL (14.0-18.0); Mean Corpuscular HGB CONC 30.3 g/dL (32.0-36.0); Mean Corpuscular Hemoglobin 30.9 pg (27.0-31.0); Mean Platelet Volume 6.9 fL (7.4-10.4); Platelet Count 596 thou/uL (130-400); RBC Distribution Width 14.9 % (11.5-14.5); Red Blood Cell (RBC) Count 2.75 mill/uL (4.70-6.10); White Blood Cell (WBC) Count 11.9 thou/uL (4.8-10.8)
[2020-01-09 23:05] LABS: Base Excess-Venous -25.1 mmol/L (-2.0 to 3.0); Bicarbonate (HCO3v) 4.5 mmol/L (22.0-28.0); CO2 Tension (PvCO2) 18.5 mmHg (40.0-50.0); Calcium, Ionized 1.14 mmol/L (See Comments:); Chloride 104 mmol/L (98-107); Hemoglobin - Calc 8.3 g/dL (14.0-18.0); Potassium 6.3 mmol/L (3.5-5.1); Sodium 121 mmol/L (138-145); vO2 Saturation-calc 91.4 % (60.0-85.0)
--- NOTE | 2020-01-09 23:13 | RAD ---
PORTABLE CHEST: Date: 01/09/2020 PROVIDED CLINICAL HISTORY: Dyspnea. FINDINGS: Comparison with 11/01/2019. Cardiac silhouette is within normal limits. Median sternotomy changes are now seen. There is focal pa renchymal opacity involving the left lower lung zone. Right lung appears grossly clear. There is no p leural fluid or pneumothorax apparent. IMPRESSION: Consolidation involving the left lower lung zone, compatible with pneumonia in the appropriate clinic al context. Follow-up is recommended. POS: ERIS
[2020-01-09] MEDS ORDERED: Insulin Regular 100 units/100 ml in NS IVPB SCH (23:15)
[2020-01-09 23:38] LABS: Bacteria/HPF None Seen HPF (None Seen); Bilirubin Negative (Negative); Blood, Urine Trace (Negative); Clarity Clear (Clear); Glucose, Urine (Dipstick) Greater than 1000 mg/dL (Negative); Leukocyte Negative Leu/uL (Negative); Nitrite Negative (Negative); Protein, Urine (Dipstick) 10 mg/dL (Neg-Trace); RBC/HPF 0-3 HPF (0-3); Squamous Epithelial 0-3 HPF (0-3); Urobilinogen Normal mg/dL (Less than 2)
[2020-01-09 23:59] LABS: ALT (SGPT) 20 U/L (8-55); AST (SGOT) 14 U/L (5-34); Albumin 3.3 g/dL (3.4-4.8); Alkaline Phosphatase 140 U/L (40-110); BUN (Urea Nitrogen) 32 mg/dL (8.4-25.7); Bilirubin, Total 0.2 mg/dL (0.2-1.2); Calc. Creatinine Clearance 0 mL/min (70-130); Calcium 8.2 mg/dL (7.8-10.44); Chloride 96 mmol/L (98-107); Estimated GFR-MDRD 37; Globulin 3.1 g/dL (2.4-3.5); Protein, Total 6.4 g/dL (5.8-8.1); Sodium 129 mmol/L (136-145)
[2020-01-10] LABS: Carbon Dioxide Less than 8 mmol/L (23-31); Glucose 776 mg/dL (80-115); Potassium 6.8 mmol/L (3.5-5.1)
[2020-01-10 00:31] LABS: CKMB 7.6 ng/mL (0-6.6)
[2020-01-10 02:04] LABS: ALT (SGPT) 20 U/L (8-55); AST (SGOT) 18 U/L (5-34); Albumin 3.2 g/dL (3.4-4.8); Alkaline Phosphatase 135 U/L (40-110); BUN (Urea Nitrogen) 32 mg/dL (8.4-25.7); Bilirubin, Total Less than 0.2 mg/dL (0.2-1.2); Calc. Creatinine Clearance 0 mL/min (70-130); Calcium 8.1 mg/dL (7.8-10.44); Carbon Dioxide Less than 8 mmol/L (23-31); Chloride 100 mmol/L (98-107); Estimated GFR-MDRD 35; Globulin 3.1 g/dL (2.4-3.5); Glucose 717 mg/dL (80-115); Potassium 5.9 mmol/L (3.5-5.1); Protein, Total 6.3 g/dL (5.8-8.1); Sodium 132 mmol/L (136-145)
--- NOTE | 2020-01-17 12:15 | EKG ---
Test Reason : Blood Pressure : / mmHG Vent. Rate : 121 BPM Atrial Rate : 121 BPM P-R Int : 000 ms QRS Dur : 092 ms QT Int : 342 ms P-R-T Axes : 000 055 109 degrees QTc Int : 485 ms Sinus tachycardia T wave abnormality, consider anterior ischemia Abnormal ECG Confirmed by NATALIYA ARAMBULA M.D. ([id number]), editor book ROGELIO SCHULER ([id number]) on 01/17/2020 12:15:39 PM Referred By: Confirmed By:NATALIYA ARAMBULA M.D.
== END 2020-01-10 02:10 | disposition short-term general hospital (02) ==
LOC: ERS 22:25
DX: E11.10 Type 2 diabetes mellitus with ketoacidosis without coma (principal); E86.0 Dehydration; I10 Essential (primary) hypertension; E78.00 Pure hypercholesterolemia, unspecified; F41.9 Anxiety disorder, unspecified; F32.9 Major depressive disorder, single episode, unspecified; F17.210 Nicotine dependence, cigarettes, uncomplicated
CPT/HCPCS: 36416; 71045; 80053; 81003; 81015; 82010; 82330; 82553; 82803; 84484; 85025; 93005; 96360; 96361; 96365; 96366; J1815; J3490

== ENCOUNTER 2020-03-18 19:43 | Inpatient (IN) | payer OTHER ==
[~2020-03-18 19:43] MED LIST: Atropine Sulfate 1 mg/10 ml Syringe ONE; EPINEPHrine 1 MG/10 ML Abboject SYRINGE ONE; EPINEPHrine 1 MG/ML AMP ONE; Heparin 10,000 UNITS/ 10 ML VIAL ONE; Sodium Bicarb 50 MEQ/50 ML Abboject 8.4% SYRINGE ONE
[2020-03-18] MEDS ORDERED: cloNIDine 0.1 MG TAB PO PRN (22:44)
[2020-03-18] MEDS ORDERED: hydrALAZINE 20 MG/ML VIAL SLOW IVP PRN (22:44)
[2020-03-18] MEDS ORDERED: Labetalol HCl 100 MG/20 ML VIAL SLOW IVP PRN (22:44)
[2020-03-18] MEDS ORDERED: Promethazine HCl 12.5 MG in Sodium Chloride 0.9% 50 ML IVPB PRN (22:44)
[2020-03-18] MEDS ORDERED: Electrolyte Replacement Protoc 1 EACH EACH IVPB PRN (22:45)
[2020-03-18] MEDS ORDERED: Ventilator Sedation Protocol 1 EACH FS SCH (22:45)
[2020-03-18] MEDS ORDERED: Milk Of Magnesia 30 ML UDCUP PO PRN (22:45)
[2020-03-18] MEDS ORDERED: Mag-Al 1200 mg/1200 mg/30 ML UDCUP PO PRN (22:45)
[2020-03-18] MEDS ORDERED: HUMULIN R 100 UNITS in Sodium Chloride 0.9% 100 ML IVPB SCH (22:45)
--- NOTE | 2020-03-18 22:50 | PDOC.HHP ---
Hospitalist HPI - History of Present Illness Found down, ROSC History of Present Illness: Patient is a 64 year old male with unknown PMH found down on site by EMS, unknown how long he was unconscious for, he was bradycardic and hypothermic, he required CPR by EMS on side, was placed on epinephrine gtt, pH initially 6.7, K 6.8, glucose too high to quantify. He had several amps of bicarbonate and now placed on drip. He is on warming protocol and insulin drip as well, with stabilization of vital signs, he is intubated, ED physician discussed with Dr Urrutia who will evaluate for emergent HD needs, patient to be admitted for ICU for further management and care. Other medications given include cefepime, atropine, calcium gluconate. Hospitalist ROS - Review of Systems ROS unobtainable: due to endotracheal tube - Medication Medications: unknown Hospitalist History - Past Medical History Other Medical History: Unknown presume diabetes history - Past Surgical History Other Surgical History: Unknown - Family History Other Family History: Unknown - Social History Other Social History: Unknown - Exam General - other findings: intubated Eye: PERRL, anicteric sclera ENT: normocephalic atraumatic, no oropharyngeal lesions, moist mucosa Neck: supple, symmetric, no JVD, no thyromegaly, no lymphadenopathy, no carotid bruit Heart: RRR, no murmur, no gallops, no rubs, normal peripheral pulses Respiratory: CTAB, no wheezes, no rales, no ronchi, normal chest expansion, no tachypnea, normal percussion Gastrointestinal: soft, non-tender, non-distended, normal bowel sounds, no palpable masses, no hepatomegaly, no splenomegaly, no bruit Extremities: no cyanosis, no clubbing, no edema Skin: normal turgor, no lesions, no rashes Neurological - other findings: intubated, sedated, rass -2 Musculoskeletal: normal tone, normal strength, no muscle wasting Psychiatric - other findings: unable to evaluate Hospitalist Results - Labs Additional comment: VITAL SIGNS SatMar 18, 2020 21:59 MARNIE Randle [place] BP: 137/61 Pulse: 80 Resp: 17 Temp: 94 (Rectal) Pain: UTR O2 sat: 100 Time: 03/18/2020 21:59. labs, imaging reviewed Hospitalist H&P A/P - Plan Plan: Patient is a 64 year old male with unknown PMH found down on site by EMS admitted for ROSC. # out of hospital cardiac arrest w/ ROSC # acute hypoxic respiratory failure # hyperkalemia # diabetes w/ hyperglycemia # bradycardia # metabolic acidosis # renal failure, chronicity unknown # hyponatremia # NSTEMI, presume due to demand ischemia - admit to CCU - consult pulmonary - continue bicarbonate, insulin, epinephrine gtt - warming protocol to continue - trend BMP q2h, trend lactic acid and troponin - continue to search for identity of patient to see if any further history - hold heparin drip given likely demand ischemia, order echo and cardiology consult # DVT/GI ppx 52 minutes critical care time
[2020-03-18 22:59] LABS: CKMB 10.5 ng/mL (0-6.6); Troponin I 1.478 ng/mL (< 0.028)
[2020-03-18] MEDS ORDERED: Lorazepam 2 MG/ML VIAL SLOW IVP PRN (22:59)
[2020-03-18] MEDS ORDERED: Morphine 2 MG/ML VIAL SLOW IVP PRN (22:59)
[2020-03-18] MEDS ORDERED: Propofol 1,000 MG/100 ML VIAL IV PRN (22:59)
[2020-03-18] MEDS ORDERED: Propofol BOLUS 1,000 MG/100 ML VIAL IV PRN (22:59)
[2020-03-18] MEDS ORDERED: fentaNYL Citrate/PF 2,000 MCG in Sodium Chloride 0.9% 60 ML IV SCH (22:59)
[2020-03-18] MEDS ORDERED: Fentanyl BOLUS 250 ML IVPB PRN (22:59)
[2020-03-18] MEDS ORDERED: DISCONTINUE PREVIOUS NARCOTIC PAIN MEDICATIONS AND BENZODIAZEPINES FS SCH (22:59)
[2020-03-18 23:00] LABS: Chloride 93 mmol/L (98-107); Potassium 5.9 mmol/L (3.5-5.1); Sodium 128 mmol/L (136-145)
[2020-03-18 23:01] LABS: BUN (Urea Nitrogen) 68 mg/dL (8.4-25.7); Calc. Creatinine Clearance 0 mL/min (70-130); Carbon Dioxide Less than 8 mmol/L (23-31); Estimated GFR-MDRD 18
[2020-03-18 23:02] LABS: ALT (SGPT) 63 U/L (8-55); AST (SGOT) 131 U/L (5-34); Albumin 2.9 g/dL (3.4-4.8); Alkaline Phosphatase 135 U/L (40-110); Bilirubin, Total 0.9 mg/dL (0.2-1.2); Globulin 2.9 g/dL (2.4-3.5); Glucose 743 mg/dL (80-115); Protein, Total 5.8 g/dL (5.8-8.1)
[2020-03-18 23:05] LABS: Lactic Acid 2.9 mmol/L (0.5-2.2)
[2020-03-18] MEDS ORDERED: Dextrose 5% in Water 1,000 ML IV PRN (23:06)
[2020-03-18] MEDS ORDERED: Sodium Chloride 0.9% 1,000 ML IV PRN ×4 (23:06)
[2020-03-18] MEDS ORDERED: NS 0.9% w/ 20 MEQ KCL 1,000 ML/1,000 ML BAG IV PRN ×2 (23:06)
[2020-03-18] MEDS ORDERED: D5 1/2 NS w/20 mEq KCL 1,000 ML IV PRN (23:06)
[2020-03-18] MEDS ORDERED: Dextrose 5 %-0.45 % NaCl 1,000 ML IV PRN (23:06)
[2020-03-18] MEDS ORDERED: Dextrose 50% Abboject 50 ML SYRINGE SLOW IVP PRN (23:06)
[2020-03-18] MEDS ORDERED: ADD ELECTROLYTE REPLACEMENT SET TO PROFILE FS SCH (23:15)
[2020-03-18] MEDS ORDERED: Piperacillin/Tazobactam 3.375 GM in Sodium Chloride 0.9% 100 ML IVPB SCH ×2 (23:15→23:59)
[2020-03-18] MEDS ORDERED: Vancomycin HCl 1.5 GM in Sodium Chloride 0.9% 250 ML 300 ML IVPB SCH (23:15)
[2020-03-18] MEDS ORDERED: Insulin Regular 300 UNITS/3 ML VIAL IVP SCH (23:15)
[2020-03-18] MEDS ORDERED: Sodium Bicarbonate 150 MEQ in Dextrose 5% in Water 1,000 ML IV SCH (23:15)
[2020-03-18 23:26] LABS: #Eosinphils 0.1 thou/uL (0.0-0.7); #Lymphocytes 1.8 thou/uL (1.20-3.40); #Monocytes 0.3 thou/uL (0.11-0.59); #Neutrophils 7.3 thou/uL (1.40-6.50); %Basophils 0.2 % (0.0-1.0); %Eosinophils 0.8 % (0.0-10.0); %Lymphocytes 18.8 % (21.0-51.0); %Monocytes 3.2 % (0.0-10.0); %Neutrophils 76.9 % (42.0-75.0); Hemoglobin 11.6 g/dL (14.0-18.0); Mean Corpuscular HGB CONC 29.9 g/dL (32.0-36.0); Mean Corpuscular Hemoglobin 28.7 pg (27.0-31.0); Mean Corpuscular Volume 96.3 fL (78.0-98.0); Platelet Count 209 thou/uL (130-400); RBC Distribution Width 13.1 % (11.5-14.5); Red Blood Cell (RBC) Count 4.03 mill/uL (4.70-6.10); White Blood Cell (WBC) Count 9.5 thou/uL (4.8-10.8)
[2020-03-18] MEDS ORDERED: Vancomycin 1.5 GRAM/300 ML BAG 1.5 GM in Premix Bag 1 BAG IVPB SCH (23:30)
[2020-03-19 00:17] LABS: HBCM Index 0.06 S/CO (0-0.79); HBSAg Index 0.12 S/CO (0-0.99); Hep A IgM AB Non-Reactive (NonReactive); Hep A IgM S/CO 0.34 S/CO (0-0.79); Hep B Surf Ag Non-Reactive S/CO (NonReactive); Hep C IgG Ab Non-Reactive (NonReactive); Hep C Index 0.46 S/CO (0-0.79); Hepatitis B Core IgM Abs Non-Reactive (NonReactive); Thyroid Stimulating Hormone 5.1411 uIU/mL (0.35-4.94)
[2020-03-19 00:22] LABS: Glucose 810 mg/dL (80-115)
[2020-03-19 00:42] LABS: BUN (Urea Nitrogen) 74 mg/dL (8.4-25.7); Calc. Creatinine Clearance 18 mL/min (70-130); Calcium 8.1 mg/dL (7.8-10.44); Chloride 93 mmol/L (98-107); Estimated GFR-MDRD 17; Potassium 5.5 mmol/L (3.5-5.1); Sodium 130 mmol/L (136-145)
[2020-03-19 01:03] LABS: Glucose 506 mg/dL (80-115)
[2020-03-19 01:10] LABS: Carbon Dioxide Less than 8 mmol/L (23-31); Glucose 769 mg/dL (80-115)
[2020-03-19 01:43] LABS: Actual Bicarbonate (HCO3a) 4.9 mEq/L (22-28); Analyzer IN Cardio ER; Base Excess (BEa) -29.9 mEq/L (-2.0 to +3.0); CO2 Tension 35.7 mmHg (35.0-45.0); Calcium, Ionized (arterial) 1.41 mmol/L (1.12-1.30); Carboxyhemoglobin (COHb) 0.3 gm% (0.0-3.0); Hemoglobin (Hb) 11.7 g/dL (14.0-18.0); O2 Tension (PaO2), arterial 185.2 mmHg (> 80.0); Potassium - ABG Lab 6.65 mmol/L (3.70-5.30)
[2020-03-19 01:44] LABS: Puncture Site RBA; pH, Arterial 6.75 (7.35-7.45)
[2020-03-19 01:45] LABS: ALV-art Gradient 55.375 (0-20)
[2020-03-19 02:15] LABS: Actual Bicarbonate (HCO3a) 19.3 mEq/L (22-28); Base Excess (BEa) -5.9 mEq/L (-2.0 to +3.0); Calcium, Ionized (arterial) 1.03 mmol/L (1.12-1.30); Carboxyhemoglobin (COHb) 0.3 gm% (0.0-3.0); Hemoglobin (Hb) 10.9 g/dL (14.0-18.0); O2 Tension (PaO2), arterial 131.5 mmHg (> 80.0); Potassium - ABG Lab 4.13 mmol/L (3.70-5.30); pH, Arterial 7.34 (7.35-7.45)
[2020-03-19 02:18] LABS: Puncture Site LBR
[2020-03-19] MEDS: Piperacillin/Tazobactam 2.25 GM in Sodium Chloride 0.9% 100 ML IVPB SCH ×3 (02:52→17:52)
[2020-03-19] MEDS: EPINEPHrine 4 MG in Dextrose 5% in Water 250 ML IV SCH ×2 (04:00→08:00)
[2020-03-19] MEDS: Sodium Bicarbonate 150 MEQ in Dextrose 5% in Water 1,000 ML IV SCH ×2 (05:57)
[2020-03-19 06:02] LABS: Mean Corpuscular HGB CONC 33.2 g/dL (32.0-36.0); Mean Corpuscular Hemoglobin 28.4 pg (27.0-31.0); Mean Corpuscular Volume 85.6 fL (78.0-98.0); Mean Platelet Volume 7.5 fL (7.4-10.4); Platelet Count 178 thou/uL (130-400); RBC Distribution Width 13.1 % (11.5-14.5)
[2020-03-19 06:21] LABS: Lactic Acid 3.3 mmol/L (0.5-2.2)
[2020-03-19 06:25] LABS: ALT (SGPT) 51 U/L (8-55); AST (SGOT) 108 U/L (5-34); Albumin 2.8 g/dL (3.4-4.8); Alkaline Phosphatase 110 U/L (40-110); Anion Gap 16 mmol/L (10-20); BUN (Urea Nitrogen) 39 mg/dL (8.4-25.7); Bilirubin, Direct 0.3 mg/dL (0.1-0.3); Bilirubin, Total 0.5 mg/dL (0.2-1.2); Calc. Creatinine Clearance 29 mL/min (70-130); Calcium 7.3 mg/dL (7.8-10.44); Carbon Dioxide 25 mmol/L (23-31); Chloride 96 mmol/L (98-107); Estimated GFR-MDRD 30; Glucose 484 mg/dL (80-115); Potassium 4.2 mmol/L (3.5-5.1); Protein, Total 5.5 g/dL (5.8-8.1); Sodium 133 mmol/L (136-145)
[2020-03-19 06:26] LABS: Magnesium 1.5 mg/dL (1.6-2.6); Phosphorus 2.2 mg/dL (2.3-4.7)
[2020-03-19 06:41] LABS: Band 21 % (5-11); Lymphocytes 5 % (21-51); MDiff Complete? YES; Monocytes 10 % (0-10); Myelocyte 1 % (0-0); Neutrophil 63 % (42-75)
--- NOTE | 2020-03-19 07:20 | CON ---
DATE OF CONSULTATION: 03/18/2020 REASON FOR CONSULTATION: Hyperkalemia. SUBJECTIVE: This is a 64-year-old gentleman who came in with cardiac arrest and was noted to have hyperkalemia. No further history can be obtained. The patient was bradycardic and hypothermic. Potassium was 5.9, sodium 128, and bicarbonate of less than 8. No blood gas was obtained. PAST MEDICAL HISTORY: Diabetes otherwise, hyperlipidemia, history of coronary artery disease, and history of methamphetamine addiction. SOCIAL HISTORY: Unavailable. FAMILY HISTORY: Unavailable. ALLERGIES: UNAVAILABLE. MEDICATION LIST: Unavailable. REVIEW OF SYSTEMS: Unobtainable. PHYSICAL EXAMINATION: General: The patient is resting. Vital Signs: Afebrile, pulse 75, breathing at 16, blood pressure was 90/50. HEENT: Head: Normocephalic and atraumatic. Eyes: Intact. No ulcers. Nose: Intact. No ulcers. Ears: Intact. No ulcers. Neck: Supple. No JVD. Chest: Symmetrical and clear. Cardiovascular: Shows S1 and S2. No rub. No murmur. Gastrointestinal: Abdomen is soft. Bowel sounds positive. Extremities: Show no edema or ulcers. Skin: Shows no rash or petechiae. Musculoskeletal: Shows no joint swelling or stiffness. Genitourinary: Shows no Henry or CVA tenderness. Neurologic: The patient is resting. LAB: Labs show potassium 5.9 and creatinine 3.4. ASSESSMENT: 1. Acute kidney injury with chronic kidney disease with hyperkalemia. Plan: Dialysis. 2. Metabolic acidosis: We would recommend getting an ABG. Plan: Dialysis. 3. Hyperkalemia. Plan: Dialysis. 4. Myocardial infarction. Overall prognosis is poor. We will discuss risks versus benefits of dialysis. We will initiate urgent dialysis. Job ID: [id number]
[2020-03-19] MEDS ORDERED: Magnesium 2 GM/50 ML 2 GM in Premix Bag 1 BAG IVPB SCH (07:30)
[2020-03-19 08:10] LABS: Actual Bicarbonate (HCO3a) 21.9 mEq/L (22-28); Base Excess (BEa) -1.7 mEq/L (-2.0 to +3.0); CO2 Tension 32.9 mmHg (35.0-45.0); Calcium, Ionized (arterial) 0.99 mmol/L (1.12-1.30); Carboxyhemoglobin (COHb) 0.2 gm% (0.0-3.0); Hemoglobin (Hb) 10.4 g/dL (14.0-18.0); O2 Tension (PaO2), arterial 110.3 mmHg (> 80.0); Potassium - ABG Lab 3.79 mmol/L (3.70-5.30); Puncture Site LR; pH, Arterial 7.44 (7.35-7.45)
[2020-03-19 08:11] LABS: ALV-art Gradient 133.775 (0-20)
--- NOTE | 2020-03-19 08:43 | CT ---
CT BRAIN: Date: 03/18/2020 PROVIDED CLINICAL HISTORY: Found down. FINDINGS: The ventricular system appears normal in size and morphology. There is no evidence for intracranial h emorrhage or mass effect. 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 The extracranial soft tissues and osseous structures appear otherwise unremarkable. IMPRESSION: No evidence for intracranial hemorrhage or mass effect. POS: ERIS
--- NOTE | 2020-03-19 08:52 | CT ---
CT CHEST AND ABDOMEN AND PELVIS WITHOUT CONTRAST: Date: 03/18/2020 PROVIDED CLINICAL HISTORY: Found down. FINDINGS: Endotracheal tube is noted, tip of which terminates in the region of the negin. Left subclavian cent ral line is present, tip of which terminates in the SVC. The heart, pericardium, and great vessels ar e suboptimally evaluated in the absence of IV contrast material. Vascular calcification including cor onary calcium is noted. Median sternotomy changes are seen. There is minimal nonspecific subpleural ground-glass opacity in the left lower lobe. No pleural fluid or pneumothorax apparent. Bibasilar dependent subsegmental atelectatic change. The solid abdominal organs are suboptimally evaluated in the absence of IV contrast material but demo nstrate a grossly unremarkable unenhanced CT appearance. Portions of the abdomen are suboptimally miladys luated on the basis of patient respiratory motion. There is no evidence for bowel obstruction. There is no inflammatory fat stranding, free fluid, or fr ee air apparent. Extensive atherosclerotic vascular calcifications are seen, with areas of stenosis severe in degree i nvolving the common femoral arteries bilaterally. A right-sided femoral venous central line is noted, terminating in the IVC. The osseous structures demonstrate no concerning lytic or blastic lesions. IMPRESSION: 1. Minimal nonspecific subpleural ground-glass opacity in the left lower lobe, which can be seen in the setting of infectious pneumonitis. 2. Chronic findings as above. POS: ERIS
[2020-03-19] MEDS ORDERED: Vancomycin HCl 1.5 GM in Sodium Chloride 0.9% 250 ML 300 ML IVPB SCH (09:00)
--- NOTE | 2020-03-19 09:12 | RAD ---
PORTABLE CHEST: Date: 03/18/2020 PROVIDED CLINICAL HISTORY: Central line placement. FINDINGS: Comparison with 01/09/2020. Heart size appears normal. Vascular calcifications seen. Median sternotomy changes are again seen. Ev aluation is limited by overlying defibrillator pad. Endotracheal tube is noted, tip of which projects just cranial to the thoracic inlet. Left subclavian central line is noted, tip of which projects ove r expected region of SVC. No focal consolidation, pleural fluid, or pneumothorax apparent. IMPRESSION: Support apparatus as above. POS: ERIS
[2020-03-19] MEDS: Famotidine 40 MG/5 ML Oral Suspension PER TUBE SCH (09:37)
--- NOTE | 2020-03-19 10:21 | CON ---
DATE OF CONSULTATION: HISTORY OF PRESENT ILLNESS: Lyle Peres is a 64-year-old gentleman, who was found down hypotensive, bradycardic. Apparently, his heart rate was in 30s, blood pressure 80/50. External pacer was placed today. CPR was initiated as per the paramedics. Epi was initiated. He is brought to [facility], [place] where he is presently intubated on the vent on multiple drips. There are no family members at the present time to get additional information, though he has been in and out of the hospital here numerous times in fact he was here no more than 3 months ago. He has past medical history pertinent for uncontrolled diabetes, hypertension, lipidemia, drug abuse. Recent non ST-segment myocardial infarction felt to be secondary to demand ischemia. History of tobacco abuse. His discharge summary most recently showed that he is discharged home on insulin 16 units, lisinopril 2.5, atorvastatin 80, aspirin 81, metformin 500 twice a day. Apparently, history of smoker. Unable to get any additional information at this stage. PHYSICAL EXAMINATION: GENERAL: He is sedated. Vasopressin and Levophed on board. VITAL SIGNS: His pulse is 100, blood pressure 120/80, respiratory rate 20. CHEST: Decreased breath sounds. No wheezing. No crackles. CARDIAC: Normal S1 and S2. No gallops. ABDOMEN: Soft. LABORATORY DATA: White count 6.5, H and H of 10 and 30, platelet count 78. His acidosis resolved. His pH is 7.44, pCO2 of 32, pO2 of 110, rate of 30, 40%, 500 tidal volume. His BUN and creatinine have improved to 37 and 2.4. His bicarb is less than 8, it is now 25. IMPRESSION: 1. Status post cardiopulmonary arrest, severe metabolic acidosis, improving. 2. Renal failure, better. 3. History of diabetes, on insulin drip. 4. Tobacco abuse. 5. Chronic obstructive pulmonary disease. PLAN: We will hold sedation. Continue all pressors. Continue insulin as ordered. Empiric antibiotics adjusted for the renal failure, which he will continue. Pulmonary/Critical Care is going to follow while in the ICU. We will probably start nutrition in the next 24 hours. PT, supportive care. This is a 45-minute critical care time. Job ID: [id number]
[2020-03-19] MEDS ORDERED: Insulin Glargine 10 UNITS in Pre-Filled Syringe 1 EACH SC SCH (10:30)
[2020-03-19] MEDS ORDERED: Norepinephrine 8 MG/0.9% NS 250 ML IVPB SCH (11:30)
[2020-03-19] MEDS ORDERED: Albumin 5% 0 ML ONE (11:35)
[2020-03-19] MEDS ORDERED: Norepinephrine 8 MG/0.9% NS 250 ML ONE (11:35)
--- NOTE | 2020-03-19 11:51 | CON ---
DATE OF CONSULTATION: 03/19/2020 REASON FOR CONSULTATION: Positive troponins. [employer]IMARY [employer]: Jamin Campa MD. HISTORY OF PRESENT ILLNESS: Mr. Peres is a 64-year-old white gentleman, who was actually found down by EMS. He was unknown how long he was down for, but he was found to be bradycardic and hypothermic. CPR was started by EMS. Eventually had a spontaneous return of circulation, had to be placed on an epinephrine drip. ABG showed profound acidosis with a pH of 6.7 and a glucose too high to quantify. Cardiology is being consulted as he had positive troponins during this evaluation. He currently is intubated and sedated, unable to provide any history. He has been in the hospital for what appears to be altered mental status in the past and was diagnosed with diabetes ketoacidosis. He also has methamphetamine use in the past. His troponin went really high up to 14. Dr. Campa evaluated and treated medically at that time. He never followed up with in the office. PAST MEDICAL HISTORY: 1. Hypertension. 2. Hyperlipidemia. 3. Positive methamphetamine use. 4. Type 2 diabetes and episodes of hyperglycemia and diabetic acidosis from it. FAMILY HISTORY: Noncontributory. SOCIAL HISTORY: He smokes. He has been using methamphetamines for the last 5 years as determined from note from October of this year. He lives in an area where the methamphetamine was easily available. This was back in October. Unknown his situation at this time. SURGICAL HISTORY: Chart says none, however, it seems that he has a midline scar in his chest suggestive of some sort of open heart surgery and looking at his chest x-ray this would confirm he has wires on his chest. I do not see any valves. More than likely this may have been related to bypass at some point in the past. REVIEW OF SYSTEMS: Unobtainable as the patient is sedated and intubated. PHYSICAL EXAMINATION: VITAL SIGNS: Temperature was 97.5, but he just spiked a fever of 100.5, respiratory rate 40, pulse 112, blood pressure 94/69 currently, but has been as low as 80/50. GENERAL: Sedated, intubated. NECK: Supple. LUNGS: Clear. CARDIOVASCULAR: S1 and S2. No S3 or S4. ABDOMEN: Soft. EXTREMITIES: No edema. SKIN: Warm and dry. LABORATORY DATA: Laboratory work was reviewed. CBC, CMP, chemistries, and serologies were reviewed. Most recent echocardiogram was done in October of this year showed an EF of 55% to 60% with trace MR. ASSESSMENT AND PLAN: 1. Out of hospital cardiac arrest. 2. Unwitnessed arrest, unknown of time of down. 3. Concern for anoxic brain injury. 4. Positive troponins, most likely a type 2 demand type of ischemia type of myocardial infarction. 5. Diabetic ketoacidosis, most likely. 6. Unknown if ongoing drug use. We will get a urine drug screen. PLAN: 1. Continue conservative care at this time. 2. Would recommend full anticoagulation. 3. Will get a urine drug screen. 4. Correction of metabolic abnormalities per primary team is already ongoing and his pH is already much better. 5. Critical point is going to be the level of anoxic brain injury that he may have suffered as it is unknown how long he was down. Any further interventions from the cardiac standpoint will be determined on the level of neurological recovery that he has. Thank you for allowing us to participating in the care of the patient. We will follow. 45 minutes of critical care time. Job ID: [id number]
[2020-03-19] MEDS ORDERED: EPINEPHrine 4 MG in Sodium Chloride 0.9% 250 ML 250 ML IV SCH (12:45)
--- NOTE | 2020-03-19 13:19 | PRG ---
DATE OF SERVICE: 03/19/2020 SUBJECTIVE: A 64-year-old gentleman, being seen for acute kidney injury. The patient is intubated and resting. PHYSICAL EXAMINATION: GENERAL: VITAL SIGNS: Afebrile, pulse 75, breathing at 16, blood pressure 83/56. HEENT: Head normocephalic and atraumatic. Eyes intact, no ulcers. Nose intact, no ulcers. Ears intact, no ulcers. NECK: Supple. No JVD. CHEST: Symmetrical and clear. CARDIOVASCULAR: Shows S1 and S2, no rub, no murmur. GASTROINTESTINAL: Abdomen is soft, bowel sounds positive. EXTREMITIES: Show no edema or ulcers. SKIN: Shows no rash or petechiae. MUSCULOSKELETAL: Shows no joint swelling or stiffness. GENITOURINARY: Shows no Henry or CVA tenderness. NEUROLOGIC: The patient is resting. LABORATORY DATA: Hemoglobin 10. Potassium 4.2. ASSESSMENT AND PLAN: 1. Acute kidney injury, status post hemodialysis, stable. 2. Hyperkalemia, improved. 3. Metabolic acidosis, improved. No indication for dialysis. Continue hydration. Overall prognosis remains poor. Job ID: [id number]
[2020-03-19 13:55] LABS: Amphetamine Detected (NotDetected); Barbiturates Screen Not Detected (NotDetected); Benzodiazepine Screen Not Detected (NotDetected); Cocaine Metabolite Screen Not Detected (NotDetected); Medtox Control Line Valid? VALID (VALID); Medtox Reader # READER 1; Methadone Not Detected (NotDetected); Methamphetamine Detected (NotDetected); Opiate Screen Not Detected (NotDetected); Oxycodone Screen Not Detected (NotDetected); Phencyclidine (PCP) Not Detected (NotDetected); THC/Cannabinoid Screen Detected (NotDetected); Tricyclic Screen Not Detected (NotDetected)
--- NOTE | 2020-03-19 15:31 | PDOC.HOSPP ---
- Subjective Subjective: pt reamains on vent. critically ill. sedated - Objective Vital Signs & Weight: Vital Signs (12 hours) Temp Pulse Resp BP Pulse Ox 03/19/20 14:12 103 H 99/60 03/19/20 14:00 18 03/19/20 12:00 100 F H 18 03/19/20 10:34 112 H 79/50 L 03/19/20 08:00 100.5 F H 18 100 03/19/20 07:55 112 H 111/70 03/19/20 06:00 30 H 03/19/20 04:00 30 H Weight Admit Weight 135 lb 5.808 oz Weight 135 lb 5.808 oz Most Recent Monitor Data Heart Rate from ECG 108 NIBP 111/61 NIBP BP-Mean 77 Respiration from ECG 16 SpO2 100 I&O: 03/18/20 03/19/20 03/20/20 06:59 06:59 06:59 Intake Total 2346 500 Output Total 0 1850 Balance 2346 -1350 Result Diagrams: 03/19/20 05:45 03/19/20 05:45 Additional Labs: Accuchecks 03/19/20 03/19/20 03/19/20 13:24 12:21 11:38 POC Glucose 133 H 213 H 256 H 03/19/20 03/19/20 03/19/20 09:04 08:10 07:17 POC Glucose 355 H 417 H 406 H 03/19/20 03/19/20 03/19/20 06:28 05:55 04:43 POC Glucose 451 H 444 H 457 H 03/19/20 03/19/20 03/19/20 03:46 02:41 01:37 POC Glucose 432 H 474 H 533 H Hospitalist ROS - Medication Medications: Active Medications Generic Name Dose Route Start Last Admin Trade Name Freq PRN Reason Stop Dose Admin Albuterol/Ipratropium 3 ml 03/19/20 13:00 03/19/20 14:12 Duoneb NEB 3 ml [id number] MIMI Administration Famotidine 20 mg 03/19/20 09:00 03/19/20 09:37 Pepcid PER TUBE 20 mg 0900 MIMI Administration Insulin Human Regular 100 101 mls @ 0 mls/hr 03/18/20 22:45 03/19/20 08:00 units/ Sodium Chloride IVPB 101 mls INF MIMI Administration Protocol Titrate Piperacillin Sod/Tazobactam 100 mls @ 200 mls/hr 03/19/20 02:00 03/19/20 09: 28 Sod 2.25 gm/ Sodium Chloride IVPB 100 mls 0200,1000,1800 MIMI Administration Vasopressin 20 unit/ Sodium 51 mls @ 6 mls/hr 03/19/20 01:45 03/19/20 06:03 Chloride IV 51 mls INF MIMI Administration Lorazepam 2 mg 03/18/20 22:59 03/19/20 00:50 Ativan SLOW IVP 04/17/20 22:59 2 mg Q1H PRN Administration Breakthrough agitation Sodium Chloride 10 ml 03/19/20 09:00 03/19/20 08:48 Flush - Normal Saline IVF 10 ml Q12HR MIMI Administration Hosp A/P - Plan Physical Exam: General - other findings: intubated Eye: PERRL, anicteric sclera ENT: normocephalic atraumatic, no oropharyngeal lesions, moist mucosa Neck: supple, symmetric, no JVD, no thyromegaly, no lymphadenopathy, no carotid bruit Heart: RRR, no murmur, no gallops, no rubs, normal peripheral pulses Respiratory: CTAB, no wheezes, no rales, no ronchi, normal chest expansion, no tachypnea, normal percussion Gastrointestinal: soft, non-tender, non-distended, normal bowel sounds, no palpable masses, no hepatomegaly, no splenomegaly, no bruit Extremities: no cyanosis, no clubbing, no edema Skin: normal turgor, no lesions, no rashes Neurological - other findings: intubated, sedated, rass -2 Musculoskeletal: normal tone, normal strength, no muscle wasting Psychiatric - other findings: unable to evaluate Assessments/Plan: #Pre-hospital Cardiac Arrest w/ ROSC #Acute Hypoxic Hypercapenic Respiratory Failure #DKA -BG improved #NSTEMI - possible d/t demand ischemia #Severe Metabolic Acidosis - which has improved #FARHEEN - s/p HD - nephrology is following #Hyperkalemia - resolved with dialysis #Bradycardia -resolved #Substance Abuse - UDS positive meth 03/19/20 Patient remains critically ill, requiring mechanical ventilatory support with multiple vasopressors. Continue supportive cares including empiric IV abx, wean pressors as surya to keep MAP>65 Attempted to call family but no response. Appreciate specialists' input. Check Echo. Cont to wean insulin gtt. Monitor serial labs. Prognosis poor. Palliative care consult to address goal of cares.
[2020-03-19 17:41] LABS: SARS-CoV-2 MS2 Positive; SARS-CoV-2 N Gene Negative; SARS-CoV-2 S Gene Negative; SARS-CoV-2 by NAA Not Detected (NotDetected); SARS-CoV-2 orf1ab Negative
[2020-03-19] MEDS ORDERED: Dextrose 50% Abboject 50 ML SYRINGE ONE (18:35)
[2020-03-19] MEDS: Insulin Glargine 10 UNITS in Pre-Filled Syringe 1 EACH SC SCH (20:03)
--- NOTE | 2020-03-19 23:00 | CON ---
DATE OF CONSULTATION: 03/19/2020 REASON FOR CONSULTATION: Difficulty placing Henry catheter. HISTORY OF PRESENT ILLNESS: Mr. Peres is a 64-year-old gentleman who was brought in to the emergency room on 03/18/2020 after being found unresponsive. He received chest compressions en route to the hospital. On arrival to the hospital, he was noted to have a blood sugar over 600, hyperkalemia, and severe acidosis. Attempts were made in the emergency room to place Henry catheter and they were unsuccessful. For that reason, urologic consultation was obtained. PAST MEDICAL HISTORY: Cardiac disease. PAST SURGICAL HISTORY: Cardiac surgery of unknown type. Evidence of prior cardiac surgery on imaging. CHRONIC MEDICATIONS: None known. SOCIAL HISTORY: Apparently he is , but he and his did not communicate much. He does have a history of methamphetamine use and is a smoker. REVIEW OF SYSTEMS: Cannot be obtained. PHYSICAL EXAMINATION: GENERAL: The patient is intubated. He is sedated. VITAL SIGNS: Temperature 99.5, blood pressure 98/72, pulse 108. NECK: No masses. CHEST: Clear to auscultation. CARDIOVASCULAR: No murmurs. ABDOMEN: Soft, nontender. No palpable masses. : He has a Henry catheter in place, now draining clear yellow urine. Scrotum, no lesions. Testicles, palpably normal. LABORATORY DATA: Please see chart. IMPRESSION: Mr. Peres is a 64-year-old gentleman who was found unconscious and received CPR on the way to the hospital. Attempts to place a Henry catheter in the emergency room were unsuccessful. In the ICU, the nurse tried a coude catheter and had no problems placing it. He is draining clear yellow urine. RECOMMENDATIONS: No further evaluation at this time. Job ID: [id number]
[2020-03-19] MEDS: Vancomycin HCl 750 MG in Sodium Chloride 0.9% 250 ML 250 ML IVPB SCH (23:47)
[2020-03-20] MEDS: Piperacillin/Tazobactam 2.25 GM in Sodium Chloride 0.9% 100 ML IVPB SCH ×3 (01:35→17:34)
[2020-03-20 04:14] LABS: Hemoglobin A1c 12.7 % (4.0-6.0)
[2020-03-20 04:30] LABS: ALT (SGPT) 34 U/L (8-55); AST (SGOT) 45 U/L (5-34); Alkaline Phosphatase 82 U/L (40-110); Bilirubin, Direct 0.4 mg/dL (0.1-0.3); Bilirubin, Total 0.5 mg/dL (0.2-1.2); Protein, Total 5.7 g/dL (5.8-8.1)
[2020-03-20 04:40] LABS: Anion Gap 15 mmol/L (10-20); BUN (Urea Nitrogen) 41 mg/dL (8.4-25.7); Calc. Creatinine Clearance 46 mL/min (70-130); Calcium 7.4 mg/dL (7.8-10.44); Carbon Dioxide 27 mmol/L (23-31); Chloride 100 mmol/L (98-107); Estimated GFR-MDRD 51; Glucose 141 mg/dL (80-115); Magnesium 2.1 mg/dL (1.6-2.6); Phosphorus 3.8 mg/dL (2.3-4.7); Potassium 3.5 mmol/L (3.5-5.1); Sodium 138 mmol/L (136-145)
[2020-03-20] MEDS ORDERED: Potassium Chloride 40 MEQ in Premix Bag 1 BAG IVPB SCH (06:00)
[2020-03-20 07:04] LABS: Actual Bicarbonate (HCO3a) 22.2 mEq/L (22-28); Base Excess (BEa) -2.1 mEq/L (-2.0 to +3.0); CO2 Tension 35.7 mmHg (35.0-45.0); Calcium, Ionized (arterial) 1.02 mmol/L (1.12-1.30); Carboxyhemoglobin (COHb) 0.4 gm% (0.0-3.0); Hemoglobin (Hb) 9.2 g/dL (14.0-18.0); O2 Tension (PaO2), arterial 135.7 mmHg (> 80.0); pH, Arterial 7.41 (7.35-7.45)
[2020-03-20 07:06] LABS: ALV-art Gradient 104.875 (0-20); Puncture Site RB
[2020-03-20] MEDS: Famotidine 40 MG/5 ML Oral Suspension PER TUBE SCH (08:02)
[2020-03-20 08:12] LABS: Band 57 % (5-11); Hemoglobin 9.1 g/dL (14.0-18.0); Lymphocytes 25 % (21-51); MDiff Complete? YES; Mean Corpuscular HGB CONC 32.3 g/dL (32.0-36.0); Mean Corpuscular Hemoglobin 28.4 pg (27.0-31.0); Mean Corpuscular Volume 87.8 fL (78.0-98.0); Mean Platelet Volume 7.8 fL (7.4-10.4); Metamyelocyte 5 % (0-0); Monocytes 2 % (0-10); Neutrophil 11 % (42-75); Platelet Count 66 thou/uL (130-400); Platelet Morphology Comment Appears Decreased; RBC Distribution Width 13.4 % (11.5-14.5); Red Blood Cell (RBC) Count 3.21 mill/uL (4.70-6.10); Vacuoles SLIGHT; White Blood Cell (WBC) Count 3.6 thou/uL (4.8-10.8)
[2020-03-20] MEDS: Insulin Glargine 10 UNITS in Pre-Filled Syringe 1 EACH SC SCH ×2 (08:15→20:54)
[2020-03-20] MEDS ORDERED: DC Sedation Protocol FS SCH (09:22)
--- NOTE | 2020-03-20 09:29 | PRG ---
DATE OF SERVICE: 03/20/2020 SUBJECTIVE: A 64-year-old gentleman, remains in the ICU, still encephalopathic, off sedation. OBJECTIVE: VITAL SIGNS: His temperature is being 99, 100.2 yesterday, blood pressure 102/62, sats 100%, respiratory rate 18. NEURO: Moves all 4 extremities. CHEST: Decreased breath sounds. No wheezing. CARDIAC: Normal S1 and S2. No gallops. ABDOMEN: No masses. LABORATORY DATA: Platelet count is decreased to 66, thrombocytopenia. White count 3000, hemoglobin and hematocrit 9 and 28. PO2 is 135, pCO2 of 35, pH 7.41 on a rate of 16, 40%, 500 tidal volume. Creatinine and BUN are improved. Troponin is elevated. ASSESSMENT: Status post cardiopulmonary arrest. Possibly anoxic injury, severe bradycardia, hypertension, thrombocytopenia, rule out sepsis. PLAN: We are going to hold sedation. Consider weaning. All cultures so far negative. One-half hour of critical time. Job ID: [id number]
--- NOTE | 2020-03-20 11:26 | RAD ---
PORTABLE CHEST: Date: 03/20/2020 HISTORY: CCU follow-up. Ventilator follow-up. COMPARISON: 03/18/2020. FINDINGS: ET tube and NG tube are in place and appear adequately positioned. The lung mercado appear clear. Hear t size normal. IMPRESSION: No acute finding or interval change. POS: AGW
--- NOTE | 2020-03-20 14:43 | PRG ---
DATE OF SERVICE: 03/20/2020 SUBJECTIVE: A 64-year-old gentleman, being seen for acute kidney injury. PHYSICAL EXAMINATION: General: The patient is resting. Vital Signs: Afebrile, pulse breathing at 16, blood pressure 107/58. HEENT: Head normocephalic and atraumatic. Eyes intact, no ulcers. Nose intact, no ulcers. Ears intact, no ulcers. Neck: Supple. No JVD. Chest: Symmetrical and clear. Cardiovascular: Shows S1 and S2, no rub, no murmur. Gastrointestinal: Abdomen is soft, bowel sounds positive. Extremities: Show no edema or ulcers. Skin: Shows no rash or petechiae. Musculoskeletal: Shows no joint swelling or stiffness. Genitourinary: Shows no Henry or CVA tenderness. Neurologic: Motor intact. Cranial nerves intact. LABORATORY DATA: Labs show hemoglobin 9.1. Creatinine 1.4. ASSESSMENT AND PLAN: 1. Acute kidney injury. 2. Hypertension, stable. 3. Anemia, stable. 4. Medication based on GFR appropriate. No indication for dialysis. We will follow renal function closely. Job ID: [id number]
--- NOTE | 2020-03-20 15:59 | PDOC.CPN ---
- Subjective Date: 03/20/20 Time: 12:00 Interval history: No new issues. Remains sedated, intubated. - Review of Systems ROS unobtainable: due to endotracheal tube - Objective Allergies/Adverse Reactions: Allergies Allergy/AdvReac Type Severity Reaction Status Date / Time No Known Drug Allergies Allergy Verified 11/02/19 01:59 Visit Medications: Current Medications Acetaminophen (Tylenol Elixir) 650 mg PO Q6H PRN PRN Reason: Fever > 101 or Mild Pain Al Hydroxide/Mg Hydroxide (Maalox) 30 ml PO Q8H PRN PRN Reason: Indigestion Albuterol/Ipratropium (Duoneb) 3 ml NEB [id number] PRN PRN Reason: SOB &/or Wheezing Albuterol/Ipratropium (Duoneb) 3 ml NEB [id number] MIMI Last Admin: 03/20/20 12:54 Dose: 3 ml Clonidine (Catapres) 0.1 mg PO BID PRN PRN Reason: SBP > 160 use second Famotidine (Pepcid) 20 mg PER TUBE 0900 [facility] Last Admin: 03/20/20 08:02 Dose: 20 mg Hydralazine HCl (Apresoline) 10 mg SLOW IVP Q6H PRN PRN Reason: SBP GREATER THAN 160 Promethazine HCl 12.5 mg/ (Sodium Chloride) 50.5 mls @ 202 mls/hr IVPB Q6H PRN PRN Reason: Nausea/vomiting use second Insulin Human Regular 100 (units/ Sodium Chloride) 101 mls @ 0 mls/hr IVPB INF [facility]; Protocol Last Admin: 03/19/20 08:00 Dose: 101 mls Potassium Chloride/Sodium Chloride (Ns 0.9% W/ 20 Meq Kcl) 1,000 ml in 1,000 mls @ 500 mls/hr IV .Q2H PRN; Protocol PRN Reason: STEP 2: DKA PROTOCOL Piperacillin Sod/Tazobactam (Sod 2.25 gm/ Sodium Chloride) 100 mls @ 200 mls/ hr IVPB 0200,1000,1800 [facility] Last Admin: 03/20/20 10:03 Dose: 100 mls Vasopressin 20 unit/ Sodium (Chloride) 51 mls @ 6 mls/hr IV INF [facility] Last Admin: 03/20/20 07:59 Dose: 51 mls Vancomycin HCl 750 mg/ Sodium (Chloride) 250 mls @ 250 mls/hr IVPB 2359 MIMI Last Admin: 03/19/20 23:47 Dose: 250 mls Insulin Glargine 10 units/ (Miscellaneous Medication) 0.1 mls @ 0 mls/hr SC BID MIMI Last Admin: 03/20/20 08:15 Dose: 0.1 mls Norepinephrine Bitartrate (Levophed) 250 mls @ 0 mls/hr IVPB INF [facility]; Protocol Epinephrine 4 mg/ Sodium (Chloride) 254 mls @ 0 mls/hr IV INF MIMI; Protocol Labetalol HCl (Normodyne) 20 mg SLOW IVP Q4H PRN PRN Reason: SBP > 160 use third Magnesium Hydroxide (Milk Of Magnesium) 30 ml PO Q8H PRN PRN Reason: Constipation Miscellaneous Medication (Electrolyte Replacement Protocol) 1 each IVPB PRN PRN PRN Reason: ELECTROLYTES Miscellaneous Medication (Pharmacy To Dose) 1 each IVPB PRN PRN PRN Reason: Pharmacy to dose Miscellaneous Medication (Dc Sedation Protocol) 1 each FS ONE [facility] Stop: 03/20/20 21:00 Ondansetron HCl (Zofran) 4 mg IVP Q6H PRN PRN Reason: Nausea/Vomiting use 1st Sodium Chloride (Flush - Normal Saline) 10 ml IVF Q12HR [facility] Last Admin: 03/20/20 10:04 Dose: 10 ml Sodium Chloride (Flush - Normal Saline) 10 ml IVF PRN PRN PRN Reason: Saline Flush Vital Signs & Weight: Vital Signs Temp Pulse Resp BP Pulse Ox 03/20/20 15:00 98.1 F 03/20/20 12:54 108 H 14 94 L 03/20/20 11:00 97.8 F 03/20/20 08:00 19 100 03/20/20 07:00 99.3 F 03/20/20 06:54 88 95/55 L 03/20/20 06:00 19 03/20/20 04:00 100.2 F H 21 H Admit Weight 135 lb 5.808 oz Weight 130 lb 15.273 oz - Physical Exam General: no apparent distress HEENT: normocephaly Neck: supple neck Cardiac: tachycardia Lungs: normal breath sounds Neuro: no lateralizing findings Abdomen: active bowel sounds Extremities: no edema Skin: clear Musculoskeletal: normal range of motion - Labs Result Diagrams: 03/20/20 06:20 03/20/20 03:40 Troponin/CKMB CK-MB (CK-2) 10.5 ng/mL (0-6.6) H* 03/18/20 21:05 Troponin I 0.560 ng/mL (< 0.028) H* 03/20/20 03:40 - Telemetry Sinus rhythms and dysrhythmias: sinus tachycardia - Assessment/Plan Assessment/Plan: 1. Out of hospital cardiac arrest, unwitnessed arrest 2. Concern for anoxic brain injury. 3. Type 2 demand type of ischemia. 5. Diabetic ketoacidosis. 6. + for Methamphetamines and cannabis. PLAN: - Continue supportive care. - Would recommend full anticoagulation for a total of 48 hrs then DVT prophylaxis. . - No invasive interventions planned at this time. - Awaiting neuroloic recovery.
--- NOTE | 2020-03-20 17:16 | PDOC.HOSPP ---
- Subjective Subjective: pt is extubated and tolerated it well. still drowsy, followed some commands. updated pt's - Objective Vital Signs & Weight: Vital Signs (12 hours) Temp Pulse Resp BP Pulse Ox 03/20/20 15:00 98.1 F 03/20/20 12:54 108 H 14 94 L 03/20/20 11:00 97.8 F 03/20/20 08:00 19 100 03/20/20 07:00 99.3 F 03/20/20 06:54 88 95/55 L 03/20/20 06:00 19 Weight Admit Weight 135 lb 5.808 oz Weight 130 lb 15.273 oz Most Recent Monitor Data Heart Rate from ECG 109 NIBP 98/48 NIBP BP-Mean 64 Respiration from ECG 12 SpO2 96 I&O: 03/19/20 03/20/20 03/21/20 06:59 06:59 06:59 Intake Total 2346 2100.1 263.4 Output Total 0 3955 510 Balance 2346 -1854.9 -246.6 Result Diagrams: 03/20/20 06:20 03/20/20 03:40 Additional Labs: Accuchecks 03/20/20 03/20/20 03/19/20 16:34 03:50 23:41 POC Glucose 185 H 138 H 105 03/19/20 03/19/20 03/19/20 20:05 17:59 17:52 POC Glucose 103 79 63 L 03/19/20 03/19/20 16:15 15:07 POC Glucose 129 H 72 Hospitalist ROS - Medication Medications: Active Medications Generic Name Dose Route Start Last Admin Trade Name Erica PRN Reason Stop Dose Admin Albuterol/Ipratropium 3 ml 03/19/20 13:00 03/20/20 12:54 Duoneb NEB 3 ml [id number] MIMI Administration Famotidine 20 mg 03/19/20 09:00 03/20/20 08:02 Pepcid PER TUBE 20 mg 0900 MIMI Administration Insulin Human Regular 100 101 mls @ 0 mls/hr 03/18/20 22:45 03/19/20 08:00 units/ Sodium Chloride IVPB 101 mls INF MIMI Administration Protocol Titrate Piperacillin Sod/Tazobactam 100 mls @ 200 mls/hr 03/19/20 02:00 03/20/20 10: 03 Sod 2.25 gm/ Sodium Chloride IVPB 100 mls 0200,1000,1800 MIMI Administration Vasopressin 20 unit/ Sodium 51 mls @ 6 mls/hr 03/19/20 01:45 03/20/20 07:59 Chloride IV 51 mls INF MIMI Administration Vancomycin HCl 750 mg/ Sodium 250 mls @ 250 mls/hr 03/19/20 23:59 03/19/20 23 :47 Chloride IVPB 250 mls 2359 MIMI Administration Insulin Glargine 10 units/ 0.1 mls @ 0 mls/hr 03/19/20 21:00 03/20/20 08:15 Miscellaneous Medication SC 0.1 mls BID MIMI Administration Sodium Chloride 10 ml 03/19/20 09:00 03/20/20 10:04 Flush - Normal Saline IVF 10 ml Q12HR MIMI Administration Hosp A/P - Plan Physical Exam: General - other findings: intubated Eye: PERRL, anicteric sclera ENT: normocephalic atraumatic, no oropharyngeal lesions, moist mucosa Neck: supple, symmetric, no JVD, no thyromegaly, no lymphadenopathy, no carotid bruit Heart: RRR, no murmur, no gallops, no rubs, normal peripheral pulses Respiratory: CTAB, no wheezes, no rales, no ronchi, normal chest expansion, no tachypnea, normal percussion Gastrointestinal: soft, non-tender, non-distended, normal bowel sounds, no palpable masses, no hepatomegaly, no splenomegaly, no bruit Extremities: no cyanosis, no clubbing, no edema Skin: normal turgor, no lesions, no rashes Neurological - other findings: intubated, sedated, rass -2 Musculoskeletal: normal tone, normal strength, no muscle wasting Psychiatric - other findings: unable to evaluate Assessments/Plan: #Pre-hospital Cardiac Arrest w/ ROSC #Acute Hypoxic Hypercapenic Respiratory Failure - s/p extubate on 03/20 #DKA - resolved. #NSTEMI - possible d/t demand ischemia #Severe Metabolic Acidosis - which has improved #FARHEEN - improving. #Hyperkalemia - resolved with dialysis #Bradycardia -resolved #Substance Abuse - UDS positive meth 03/20/20 pt is s/p extubation, and weaned off vasopressors. Currently hemodynamically stable. Arousable. Concerning for possible anoxic brain injury from cardiac arrest, awaiting for neurologic recovery. Updated patient's . cont supportive cares. Add insulin sliding scale. Follow Echo. Appreciate specialists' input. 03/19/20 Patient remains critically ill, requiring mechanical ventilatory support with multiple vasopressors. Continue supportive cares including empiric IV abx, wean pressors as surya to keep MAP>65 Attempted to call family but no response. Appreciate specialists' input. Check Echo. Cont to wean insulin gtt. Monitor serial labs. Prognosis poor. Palliative care consult to address goal of cares.
[2020-03-20] MEDS: HumaLOG 300 UNITS/3 ML VIAL SC PRN (17:33)
[2020-03-20 23:56] LABS: Vancomycin, Trough 10.2 ug/mL
[2020-03-21] MEDS: Vancomycin HCl 750 MG in Sodium Chloride 0.9% 250 ML 250 ML IVPB SCH (00:23)
[2020-03-21] MEDS: Piperacillin/Tazobactam 2.25 GM in Sodium Chloride 0.9% 100 ML IVPB SCH ×3 (01:45→17:36)
[2020-03-21] MEDS ORDERED: Acetaminophen 650 MG Suppository PR PRN (02:05)
[2020-03-21] MEDS ORDERED: Sodium Chloride 0.9% 500 ML IVPB SCH (02:15)
[2020-03-21] MEDS: HumaLOG 300 UNITS/3 ML VIAL SC PRN ×3 (04:13→16:07)
[2020-03-21 04:57] LABS: Anion Gap 15 mmol/L (10-20); BUN (Urea Nitrogen) 40 mg/dL (8.4-25.7); Calc. Creatinine Clearance 52 mL/min (70-130); Calcium 7.7 mg/dL (7.8-10.44); Carbon Dioxide 26 mmol/L (23-31); Chloride 106 mmol/L (98-107); Estimated GFR-MDRD 60; Glucose 187 mg/dL (80-115); Magnesium 2.3 mg/dL (1.6-2.6); Sodium 144 mmol/L (136-145)
[2020-03-21 05:00] LABS: ALT (SGPT) 24 U/L (8-55); AST (SGOT) 32 U/L (5-34); Albumin 2.7 g/dL (3.4-4.8); Alkaline Phosphatase 80 U/L (40-110); Bilirubin, Direct 0.4 mg/dL (0.1-0.3); Bilirubin, Total 0.4 mg/dL (0.2-1.2); Protein, Total 5.5 g/dL (5.8-8.1)
[2020-03-21 05:06] LABS: Potassium 2.9 mmol/L (3.5-5.1)
[2020-03-21] MEDS: Potassium Chloride 40 MEQ in Premix Bag 1 BAG IVPB SCH ×2 (05:34→11:22)
[2020-03-21 05:35] LABS: Band 54 % (5-11); Hemoglobin 8.9 g/dL (14.0-18.0); Lymphocytes 6 % (21-51); MDiff Complete? YES; Mean Corpuscular HGB CONC 33.8 g/dL (32.0-36.0); Mean Corpuscular Hemoglobin 30.1 pg (27.0-31.0); Mean Corpuscular Volume 89.1 fL (78.0-98.0); Mean Platelet Volume 7.9 fL (7.4-10.4); Metamyelocyte 1 % (0-0); Monocytes 3 % (0-10); Neutrophil 36 % (42-75); Platelet Count 45 thou/uL (130-400); Platelet Morphology Comment Appears Decreased; RBC Distribution Width 13.2 % (11.5-14.5); Red Blood Cell (RBC) Count 2.94 mill/uL (4.70-6.10); White Blood Cell (WBC) Count 5.6 thou/uL (4.8-10.8)
[2020-03-21 07:02] LABS: Phosphorus 2.7 mg/dL (2.3-4.7)
[2020-03-21] MEDS: Famotidine 40 MG/5 ML Oral Suspension PER TUBE SCH (09:00)
[2020-03-21] MEDS: Insulin Glargine 10 UNITS in Pre-Filled Syringe 1 EACH SC SCH ×2 (09:00→21:03)
--- NOTE | 2020-03-21 09:37 | PRG ---
DATE OF SERVICE: SUBJECTIVE: Mr. Peres is extubated. He is confused, but he knows he is in the hospital. Apparently, he has undergone bypass surgery since his last visit here. I asked him where he had bypass surgery done, he is unable to answer that. OBJECTIVE: VITAL SIGNS: His blood pressure 113/65, pulse 90. LUNGS: Clear. CARDIAC: Normal S1, normal S2. ABDOMEN: Soft, nontender. EXTREMITIES: There is no edema. PERTINENT LABORATORY DATA: Hemoglobin is 8.9. Potassium 2.9. As mentioned, methamphetamine and cannabinoid screens were positive. ASSESSMENT: 1. Episode of unresponsiveness associated with bradycardia and hypothermia. 2. Continues to be positive for amphetamines. The patient previously indicated that he had an amphetamine addiction. 3. Appears to have undergone bypass surgery by the physical exam and chest x-ray. 4. Confusion, disorientation. PLAN: 1. Continue supportive care. 2. Echocardiogram revealed ejection fraction 50% to 55%. Hopefully, the patient can give us more history if his mental status improves. Job ID: [id number]
--- NOTE | 2020-03-21 09:44 | RAD ---
CHEST 1 VIEW PORTABLE: HISTORY: Respiratory insufficiency. COMPARISON: 03/20/2020. FINDINGS: The NG tube and endotracheal tubes have been removed. Left central line remains in place. There is some mild bilateral vascular congestion. Slightly less inspiratory effort. No new confluent pneumon ia, overt edema, or pleural effusion. IMPRESSION: Mild vascular congestion with slightly less inspiration following tuber removals. Continue short-ter m followup. POS: RRE
[2020-03-21] MEDS: Vancomycin 1 GM in Premix Bag 1 BAG IVPB SCH ×2 (10:52→21:03)
[2020-03-21 11:24] LABS: Lipase 38 U/L (8-78)
[2020-03-21 12:51] LABS: Potassium 3.2 mmol/L (3.5-5.1)
--- NOTE | 2020-03-21 13:43 | PDOC.PALCO ---
Palliative Care Consult - Consult Details Requesting Physician: Dr Galan Reason for Consult: goals of care - Pertinent HPI Mr Peres lives in a private residence with his partner of over 25 years "Lay Hwang". She confirmed they are not . Mr Peres has not been compliant with a ailyn care provider and as per Lay he has not been to a Dr visit in over 2 years. She reports that he has become more reclusive in the home , staying in his room. States that a friend came over to visit Mr Peres and when they went in the room he was non responsive, unknown time down. EMS was called and secondary to bradycardia and hypothermia CPR was initiated and transfer to [facility]. He was intubated, and admitted to CCU for higher level of care and medical management of acute respiratory failure, metabolic acidosis, renal failure, NSTEMI. . - Pertinent PMH Diabetes, HTN, Depression/anxiety, substance abuse - Social History Smoking Status: Smokes 0-10 cigs daily Smoking: cigarettes Alcohol Use: daily Drug Use History: marijuana, amphetamines Living Situation: with partner - Allergies Allergies/Adverse Reactions: Allergies Allergy/AdvReac Type Severity Reaction Status Date / Time No Known Drug Allergies Allergy Verified 11/02/19 01:59 - Subjective Confused, able to answer some questions, speech difficult to understand. Weakness, not reliable source for Review of Systems - ROS Non Response: due to mental status - Objective Vital Signs: Vital Signs - Most Recent Temp Pulse Resp BP Pulse Ox 98.6 F 96 15 95/55 L 99 03/21/20 04:00 03/21/20 08:16 03/21/20 08:16 03/20/20 06:54 03/21/20 08:16 Palliative Performance Scale: 40 - Physical Exam Constitutional: cachectic, confusion, emaciated, ill appearing HEENT: EOMI, moist MMs, sclera anicteric Respiratory: no rales, no rhonchi, no wheezing, unlabored breathing Cardiovascular: RRR Gastrointestinal: soft, non-tender, no distention Genitourinary: de guzman catheter Deviation from normal: cloudy Musculoskeletal: pulses present, diffuse muscle atrophy Neurology: moves all 4 limbs, no focal deficits Skin: bruising, fragile, friable Deviation from normal: Oriented to self, place. - Problem List (1) Malnutrition Code(s): E46 - UNSPECIFIED PROTEIN-CALORIE MALNUTRITION Current Visit: Yes Status: Acute (2) FARHEEN (acute kidney injury) Code(s): N17.9 - ACUTE KIDNEY FAILURE, UNSPECIFIED Current Visit: No Status : Acute (3) Hyperkalemia Code(s): E87.5 - HYPERKALEMIA Current Visit: No Status: Acute (4) Polysubstance abuse Code(s): F19.10 - OTHER PSYCHOACTIVE SUBSTANCE ABUSE, UNCOMPLICATED Current Visit: No Status: Acute - Plan/Recommendations Plan: Spoke with patient partner Lay - States patient has significant daily alcohol intake, methamphetamine use, marijuana use, smokes daily. Recent increase in agitated and argumentative behavior isolating more than usual in his room. Confirms they are not . Limited resources. Confirms patient confused state has been his baseline recently. Spoke with patient sister Libia Nguyen ([phone]) and Maegan who confirmed that Lay is not the decision maker, and consensus of siblings made Dany Peres the brother surrogate decision maker. Siblings Vanita Nguyen [phone] Maegan Amanda [phone] Dany Peres [phone] Surrogate decision maker until patient is decisional - Dany Peres. Palliative Care will assist patient and siblings to identify Goal of Care. [50] minutes spent on this encounter with >50% of the time in counseling and coordination of care. Thank you for this very appropriate consult.
--- NOTE | 2020-03-21 14:19 | PRG ---
DATE OF SERVICE: 03/21/2020 SUBJECTIVE: Patient was seen and examined at bedside and overnight events noted. Patient denies any shortness of breath or chest pain or palpitation. No history of nausea or vomiting or diarrhea or fever or chills or cramps. OBJECTIVE: GENERAL: This is well-built male, in no apparent distress. VITAL SIGNS: Temperature 98.6. Heart rate 96. Respiratory rate 18. Blood pressure 113/65. HEENT: Atraumatic, normocephalic. Oral mucosa is moist. NECK: Supple. CARDIOVASCULAR: S1, S2 heard. Rate and rhythm regular. RESPIRATORY: Clear to auscultation. GASTROINTESTINAL: Abdomen is soft. MUSCULOSKELETAL: No tenderness. No edema. DERMATOLOGIC: No skin rash. NEUROLOGIC: Alert and awake and oriented x3. No focal neurologic deficits. Moving all the extremities. PSYCHIATRIC: Mood and affect normal. LABORATORY DATA: Potassium 2.9, BUN is 40, and creatinine is 1.21. ASSESSMENT AND PLAN: 1. Acute kidney injury on chronic kidney disease, stage 3. Renal function is much better. Creatinine is down to 1.2 from 3.4 on admission. Making good amount of urine, almost 3.9 L yesterday. It seems like renal function improved close to baseline. 2. Hypertension. 3. Anemia of chronic disease. No indication for dialysis. If renal function stays stable with good amount of urine output, could remove dialysis catheter tomorrow. Job ID: [id number]
--- NOTE | 2020-03-21 17:19 | PRG ---
DATE OF SERVICE: 03/21/2020 SUBJECTIVE: Lyle Peres is still encephalopathic. OBJECTIVE: VITAL SIGNS: He is afebrile. Heart rate is 106, blood pressure 111/72, respiratory rate 16, oximetry is 98%. LUNGS: Clear. HEART: Regular rhythm. ABDOMEN: Soft and nontender. EXTREMITIES: Without edema. LABORATORY DATA: White count 5.6, hemoglobin 8.9, platelets 45,000. Sodium 144, potassium 3.9, replaced at 3.2, chloride 106, bicarb 26, BUN 40, creatinine 1.21. IMPRESSION: Ongoing street drug use with a history of multiple admissions. I saw him with a recent admission where he had diabetic ketoacidosis and was positive for methamphetamine. This admission, he survived and rest. He subsequently been extubated, but still encephalopathic most likely secondary to hypoperfusion or hypoxia. He is stable to move out of Critical Care Unit with a sitter in my opinion. Job ID: [id number]
[2020-03-21] MEDS: Potassium Chloride 20 MEQ in Premix Bag 1 BAG IVPB SCH ×2 (17:24→17:25)
--- NOTE | 2020-03-21 17:29 | PQF ---
CLINICAL DOCUMENTATION CLARIFICATION FORM: Dear Dr. CJ PARRA Date: 03-21-20 Please exercise your independent, professional judgment in responding to the clarification form. Clinical indicators are provided on the bottom of this form for your review. Please check appropriate box(es) to clarify if the following diagnosis has been ruled in our ruled out: SEPSIS [ X ] Ruled in diagnosis [ ] Continue to treat [ ] Resolved [ ] Ruled out diagnosis [ ] Other diagnosis [ ] Unable to determine In addition, please specify: Present on Admission (POA): [X ] Yes [ ] No [ ] Unable to determine For continuity of documentation, please document condition throughout progress notes and discharge summary. Thank You. To be completed by CDI/Coding staff for physician review: CLINICAL INDICATORS - SIGNS / SYMPTOMS / LABS / RESULTS AND LOCATION IN MR: CONSULT NOTE DR. STONE 03-20-20: POSSIBLY ANOXIC INJURY, SEVERE BRADYCARDIA, HTN , THROMBOCYTOPENIA, RULE OUT SEPSIS CONSULT NOTE DR. STONE 03-20-20: REMAINS IN ICU, STILL ENCEPHALOPATHIC, OFF SEDATION PN DR. PARRA 03-20-20: PRE-HOSPITAL CARDIAC ARREST WITH ROSC, ACUTE HYPOXIC HYPERCAPNIC RESPIRATORY FAILURE- S/P EXTUBATION, DKA, SEVERE METABOLIC ACIDOSIS, FARHEEN, HYPERKALEMIA, BRADYCARDIA, SUBSTANCE ABUSE BANDS: 03-19-20: 21, 03-20-20: 57, 03-21-20: 54 WBC: 03-20-20: 3.6 LACTIC ACID: 03-18-20: 2.9, 03-19-20: 3.3 TEMP: 03-19-20: 100.5, 03-20-20: 100.2 RISK FACTORS / RESULTS AND LOCATION IN MR: PN DR. PARRA 03-20-20: PRE-HOSPITAL CARDIAC ARREST WITH ROSC, ACUTE HYPOXIC HYPERCAPNIC RESPIRATORY FAILURE- S/P EXTUBATION, DKA, SEVERE METABOLIC ACIDOSIS, FARHEEN, HYPERKALEMIA, BRADYCARDIA, SUBSTANCE ABUSE CONSULT NOTE DR. STONE 03-20-20: POSSIBLY ANOXIC INJURY, SEVERE BRADYCARDIA, HTN , THROMBOCYTOPENIA, RULE OUT SEPSIS TREATMENTS / RESULTS AND LOCATION IN MR: ER NOTES 03-18-20: CEFEPIME IV, HUMULIN R IVPB, NS IVF, ATROPINE IVP CDS Signature: Marybel Louie Phone #: [phone] Date: 03-21-20 This is a permanent part of the Medical Record [facility]
[2020-03-21] MEDS: Acetaminophen 650 MG/20.3 ML UDCUP PO PRN ×2 (17:40→22:56)
--- NOTE | 2020-03-21 17:52 | PQF ---
CLINICAL DOCUMENTATION CLARIFICATION FORM: Dear Dr. CJ PARRA Date: 03-21-20 Please exercise your independent, professional judgment in responding to the clarification form. Clinical indicators are provided on the bottom of this form for your review. Please check appropriate box(es): [ X] Encephalopathy: Type: [ X ] Acute [ ] Subacute [ ] Chronic Etiology: [ ] Hypertensive [ ] Metabolic [ ] Toxic [ X] Hypoxic [ ] Septic [ ] Drug induced: [ ] Other (please specify) [ ] Transient Alteration of Awareness [ ] Other diagnosis [ ] Unable to determine In addition, please specify: Present on Admission (POA): [ X] Yes [ ] No [ ] Unable to determine For continuity of documentation, please document condition throughout progress notes and discharge summary. Thank You. To be completed by CDI/Coding staff for physician review: CLINICAL INDICATORS - SIGNS / SYMPTOMS / LABS / RESULTS AND LOCATION IN EMR: H&P: FOUND DOWN ON SITE BY EMS, UNK HOW LONG HE WAS UNCONSCIOUS FOR, BRADYCARDIC AND HYPOTHERMIC, HE REQUIRED CPR BY EMS ON SIDE, GLUCOSE TOO HIGH TO QUANTIFY CONSULT NOTE DR. STONE 03-20-20: REMAINS IN ICU, STILL ENCEPHALOPATHIC, OFF SEDATION H&P: OUT OF HOSPITAL CARDIAC ARREST W ROSC, ACUTE HYPOXIC RESP FAILURE, HYPERKALEMIA, DIABETES WITH HYPERGLYCEMIA, BRADYCARDIA, METABOLIC ACIDOSIS, NSTEMI, RENAL FAILURE, HYPONATREMIA, RISK FACTORS / RESULTS AND LOCATION IN EMR: H&P: OUT OF HOSPITAL CARDIAC ARREST W ROSC, ACUTE HYPOXIC RESP FAILURE, HYPERKALEMIA, DIABETES WITH HYPERGLYCEMIA, BRADYCARDIA, METABOLIC ACIDOSIS, NSTEMI, RENAL FAILURE, HYPONATREMIA H&P: FOUND DOWN ON SITE BY EMS, UNK HOW LONG HE WAS UNCONSCIOUS FOR, BRADYCARDIC AND HYPOTHERMIC, HE REQUIRED CPR BY EMS ON SIDE, GLUCOSE TOO HIGH TO QUANTIFY TREATMENTS / RESULTS AND LOCATION IN EMR: H&P: 03-18-20: CCU, CONSULT PULMONARY, CONTINUE BICARBONATE, INSULIN, EPINEPHRINE GTT, WARMING PROTOCOL MAR: 03-21-20: VANCOMYCIN IV, ZOSYN IV CDS Signature: Marybel Louie Phone #: [phone] Date/Time : 03-21-20 This is a permanent part of the Medical Record [facility]
--- NOTE | 2020-03-21 18:06 | PQF ---
CLINICAL DOCUMENTATION CLARIFICATION FORM: Dear Dr. CJ PARRA Date: Please exercise your independent, professional judgment in responding to the clarification form. Clinical indicators are provided on the bottom of this form for your review. Please check appropriate box(es): [ ] Protein Calorie Malnutrition: [ ] Mild [ X ] Moderate [ ] Severe [ ] Other Malnutrition (please specify) __ [ ] Other diagnosis [ ] Unable to determine In addition, please specify: Present on Admission (POA): [ X ] Yes [ ] No [ ] Unable to determine For continuity of documentation, please document condition throughout progress notes and discharge summary. Thank You. To be completed by CDI/Coding staff for physician review: CLINICAL INDICATORS - SIGNS / SYMPTOMS / LABS / RESULTS AND LOCATION IN MR: PALLIATIVE CONSULT 03-21-20: ACUTE MALNUTRITION CARD DEALER CONSULT 03-19-20: The patient was triggered for vent, food pump, low BMI (18.4); OG is present to LIWS, stage II pressure ulcer sacrococcygeal, hypoactive BS ; current NPO status PALLIATIVE CARE CONSULT 03-21-20: CACHECTIC, CONFUSION, EMACIATED, ILL APPEARING, POLYSUBSTANCE ABUSE, SIGNIFICANT ALCOHOL INTAKE, SMOKES DAILY, , ISOLATING MORE IN HIS ROOM RISK FACTORS / RESULTS AND LOCATION IN MR CARD DEALER CONSULT 03-19-20: METH ADDICTION, NPO STATUS PALLIATIVE CARE CONSULT 03-21-20: CACHECTIC, CONFUSION, EMACIATED, ILL APPEARING, POLYSUBSTANCE ABUSE, SIGNIFICANT ALCOHOL INTAKE, SMOKES DAILY, , ISOLATING MORE IN HIS ROOM TREATMENT / RESULTS AND LOCATION IN MR: CARD DEALER CONSULT 03-19-20: 1) Continue current NPO status. 2) When patient is medically stable for feedings, recommend initiate Glucerna 1.5 at 30 mL/hr and increase as tolerated by 10 mL every 4 hours to reach goal rate of 50 mL/hr. 3) Provide minimal flushes while IVF is running. 4) Monitor and replace electrolytes. Moderate Malnutrition (in acute illness) Energy Intake: <75% of estimated energy requirement for > 7 days Weight Loss: 1-2%/1 week; 5%/ 1 month; 7.5%/3 months Other: mild body fat loss; mild muscle mass loss; mild fluid accumulation; Severe Malnutrition (in acute illness) Energy Intake: = 50% of estimated energy requirement for = 5 days Weight Loss: >2%/1 week; >5%/1 month; >7.5%/3 months Other: moderate body fat loss; moderate muscle mass loss; moderate- severe fluid accumulation; measurably reduced sorter lumber straightener strength Moderate Malnutrition (in chronic illness) Energy Intake: <75% of estimated energy requirement for =1 month Weight Loss: 5%/1 month; 7.5%/3 months; 10%/6 months; 20%/1 year Other: mild body fat loss; mild muscle mass loss; mild fluid accumulation Severe Malnutrition (in chronic illness) Energy Intake: =75% of estimated energy requirement for =1 month Weight Loss: >5%/1 month; >7.5%/3 months; >10%/6 months; >20%/1 year Other: severe body fat loss; severe muscle mass loss; severe fluid accumulation; measurably reduced sorter lumber straightener strength CDS Signature: Marybel Louie Phone #: [phone] Date: This is a permanent part of the Medical Record [facility]
--- NOTE | 2020-03-21 18:06 | PDOC.HOSPP ---
- Subjective Subjective: mental status improved with episodes of confusion but redirectable. pt is being transfer out of ICU with sitter - Objective Vital Signs & Weight: Vital Signs (12 hours) Temp Pulse Resp BP Pulse Ox 03/21/20 16:27 98.4 F 99 18 129/69 94 L 03/21/20 16:00 97.8 F 03/21/20 14:34 103 H 15 100 03/21/20 12:00 98.0 F 03/21/20 08:16 96 15 99 03/21/20 08:00 97.8 F 97 Weight Admit Weight 135 lb 5.808 oz Weight 132 lb 7.965 oz Most Recent Monitor Data Heart Rate from ECG 106 NIBP 142/80 NIBP BP-Mean 100 Respiration from ECG 16 SpO2 98 I&O: 03/20/20 03/21/20 03/22/20 06:59 06:59 06:59 Intake Total 2100.1 1424.4 293 Output Total 3955 1810 920 Balance -1854.9 -385.6 -627 Result Diagrams: 03/21/20 03:58 03/21/20 12:16 Additional Labs: Accuchecks 03/21/20 03/21/20 03/21/20 16:09 12:15 04:16 POC Glucose 179 H 170 H 190 H 03/20/20 03/20/20 03/20/20 23:33 20:22 11:50 POC Glucose 146 H 138 H 168 H 03/20/20 03/19/20 03/19/20 08:13 18:39 14:30 POC Glucose 162 H 62 L 65 L Hospitalist ROS - Medication Medications: Active Medications Generic Name Dose Route Start Last Admin Trade Name Freq PRN Reason Stop Dose Admin Acetaminophen 650 mg 03/18/20 22:45 03/21/20 17:40 Tylenol Elixir PO 650 mg Q6H PRN Administration Fever > 101 or Mild Pain Albuterol/Ipratropium 3 ml 03/19/20 13:00 03/21/20 14:34 Duoneb NEB 3 ml [id number] MIMI Administration Famotidine 20 mg 03/19/20 09:00 03/21/20 09:00 Pepcid PER TUBE Not Given 0900 [facility] Insulin Human Regular 100 101 mls @ 0 mls/hr 03/18/20 22:45 03/19/20 08:00 units/ Sodium Chloride IVPB 101 mls INF MIMI Administration Protocol Titrate Piperacillin Sod/Tazobactam 100 mls @ 200 mls/hr 03/19/20 02:00 03/21/20 17: 36 Sod 2.25 gm/ Sodium Chloride IVPB 100 mls 0200,1000,1800 MIMI Administration Vasopressin 20 unit/ Sodium 51 mls @ 6 mls/hr 03/19/20 01:45 03/20/20 07:59 Chloride IV 51 mls INF MIMI Administration Insulin Glargine 10 units/ 0.1 mls @ 0 mls/hr 03/19/20 21:00 03/21/20 09:00 Miscellaneous Medication SC Not Given BID MIMI Vancomycin HCl 1 gm/ Device 200 mls @ 200 mls/hr 03/21/20 09:00 03/21/20 10: 52 IVPB 200 mls Q12HR MIMI Administration Insulin Human Lispro 0 units 03/20/20 16:37 03/21/20 16:07 Humalog SC 2 unit .MILD SLIDING SCALE PRN Administration Mild Correctional Scale Sodium Chloride 10 ml 03/19/20 09:00 03/21/20 10:53 Flush - Normal Saline IVF 10 ml Q12HR MIMI Administration Hosp A/P - Plan Physical Exam: General - other findings: intubated Eye: PERRL, anicteric sclera ENT: normocephalic atraumatic, no oropharyngeal lesions, moist mucosa Neck: supple, symmetric, no JVD, no thyromegaly, no lymphadenopathy, no carotid bruit Heart: RRR, no murmur, no gallops, no rubs, normal peripheral pulses Respiratory: CTAB, no wheezes, no rales, no ronchi, normal chest expansion, no tachypnea, normal percussion Gastrointestinal: soft, non-tender, non-distended, normal bowel sounds, no palpable masses, no hepatomegaly, no splenomegaly, no bruit Extremities: no cyanosis, no clubbing, no edema Skin: normal turgor, no lesions, no rashes Neurological - other findings: intubated, sedated, rass -2 Musculoskeletal: normal tone, normal strength, no muscle wasting Psychiatric - other findings: unable to evaluate Assessments/Plan: #Pre-hospital Cardiac Arrest w/ ROSC #Acute Hypoxic Hypercapenic Respiratory Failure - s/p extubate on 03/20 #DKA - resolved. #NSTEMI - possible d/t demand ischemia #Severe Metabolic Acidosis - which has improved #FARHEEN - improving. #Hyperkalemia - resolved with dialysis #Bradycardia -resolved #Substance Abuse - UDS positive meth #Acute metabolic encephalopathy 03/21/20 Pt is doing better. Cr improved. Mental status improved with intermittent confusion. Transfer to tele. CM/Palliative cares consult. cont supportive cares for now pending mental status 03/20/20 pt is s/p extubation, and weaned off vasopressors. Currently hemodynamically stable. Arousable. Concerning for possible anoxic brain injury from cardiac arrest, awaiting for neurologic recovery. Updated patient's . cont supportive cares. Add insulin sliding scale. Follow Echo. Appreciate specialists' input. 03/19/20 Patient remains critically ill, requiring mechanical ventilatory support with multiple vasopressors. Continue supportive cares including empiric IV abx, wean pressors as surya to keep MAP>65 Attempted to call family but no response. Appreciate specialists' input. Check Echo. Cont to wean insulin gtt. Monitor serial labs. Prognosis poor. Palliative care consult to address goal of cares.
[2020-03-21 18:30] LABS: Potassium 3.6 mmol/L (3.5-5.1)
[2020-03-22] MEDS ORDERED: Dextrose 50% Abboject 50 ML SYRINGE SLOW IVP PRN (00:24)
[2020-03-22] MEDS ORDERED: Dextrose 5% in Water 1,000 ML IV PRN (00:24)
[2020-03-22] MEDS: HumaLOG 300 UNITS/3 ML VIAL SC PRN ×3 (00:36→18:09)
[2020-03-22] MEDS: Piperacillin/Tazobactam 2.25 GM in Sodium Chloride 0.9% 100 ML IVPB SCH ×2 (03:02→10:25)
[2020-03-22 04:37] LABS: Anion Gap 12 mmol/L (10-20); BUN (Urea Nitrogen) 29 mg/dL (8.4-25.7); Calc. Creatinine Clearance 67 mL/min (70-130); Carbon Dioxide 25 mmol/L (23-31); Chloride 105 mmol/L (98-107); Estimated GFR-MDRD 80; Glucose 118 mg/dL (80-115); Magnesium 2.1 mg/dL (1.6-2.6); Sodium 139 mmol/L (136-145)
[2020-03-22] MEDS ORDERED: Potassium Chloride 40 MEQ in Premix Bag 1 BAG IVPB SCH (05:00)
[2020-03-22 05:52] LABS: Hemoglobin 8.4 g/dL (14.0-18.0); Mean Corpuscular HGB CONC 32.6 g/dL (32.0-36.0); Mean Corpuscular Hemoglobin 28.9 pg (27.0-31.0); Mean Corpuscular Volume 88.7 fL (78.0-98.0); Mean Platelet Volume 8.7 fL (7.4-10.4); Platelet Count 35 thou/uL (130-400); RBC Distribution Width 13.4 % (11.5-14.5); Red Blood Cell (RBC) Count 2.92 mill/uL (4.70-6.10); White Blood Cell (WBC) Count 4.1 thou/uL (4.8-10.8)
[2020-03-22 05:58] LABS: Band 19 % (5-11); Eosinophils 3 % (0-10); Lymphocytes 10 % (21-51); MDiff Complete? YES; Monocytes 3 % (0-10); Neutrophil 65 % (42-75); Platelet Morphology Comment Appears Decreased
[2020-03-22] MEDS: Vancomycin 1 GM in Premix Bag 1 BAG IVPB SCH (08:31)
[2020-03-22] MEDS: Acetaminophen 650 MG/20.3 ML UDCUP PO PRN ×2 (08:33→16:33)
[2020-03-22] MEDS: Insulin Glargine 10 UNITS in Pre-Filled Syringe 1 EACH SC SCH ×2 (08:59→20:24)
[2020-03-22] MEDS: Famotidine 40 MG/5 ML Oral Suspension PER TUBE SCH (08:59)
--- NOTE | 2020-03-22 13:27 | PRG ---
DATE OF SERVICE: 03/22/2020 SUBJECTIVE: Patient was seen and examined at bedside and overnight events noted. Patient denies any shortness of breath or chest pain or palpitation. No history of nausea or vomiting or diarrhea or fever or chills or cramps. OBJECTIVE: GENERAL: This is a well-built male, in no apparent distress. VITAL SIGNS: Temperature 97.8. Heart rate 100. Respiratory rate 18. Blood pressure 122/78. HEENT: Atraumatic, normocephalic. Oral mucosa is moist. NECK: Supple. CARDIOVASCULAR: S1, S2 heard. Rate and rhythm regular. RESPIRATORY: Clear to auscultation. GASTROINTESTINAL: Abdomen is soft. MUSCULOSKELETAL: No tenderness. No edema. DERMATOLOGIC: No skin rash. NEUROLOGIC: Alert and awake and oriented x3. No focal neurologic deficits. Moving all the extremities. PSYCHIATRIC: Mood and affect normal. LABORATORY DATA: Potassium 3.0, BUN is 29, creatinine 0.9. ASSESSMENT AND PLAN: 1. Acute kidney injury, much better. 2. Chronic kidney disease, stage 3, stable. 3. History of hypertension. 4. Edema. 5. Anemia of chronic disease. Labs are much better. Renal function is stable. Replace potassium. I will sign off. Please call back with any questions. Job ID: [id number]
--- NOTE | 2020-03-22 15:26 | PDOC.HOSPP ---
- Subjective Subjective: no acute event overnight. Mental status back to baseline. Plt trending down, no acute bleeding. - Objective Vital Signs & Weight: Vital Signs (12 hours) Temp Pulse Resp BP Pulse Ox 03/22/20 12:50 98.4 F 101 H 20 139/73 98 03/22/20 12:07 96 16 96 03/22/20 07:33 97.8 F 100 12 122/78 95 03/22/20 07:14 96 03/22/20 07:12 103 H 16 96 Weight Admit Weight 135 lb 5.821 oz Weight 132 lb 12.198 oz Most Recent Monitor Data Heart Rate from ECG 106 NIBP 142/80 NIBP BP-Mean 100 Respiration from ECG 16 SpO2 98 I&O: 03/21/20 03/22/20 03/23/20 06:59 06:59 06:59 Intake Total 1424.4 1133 Output Total 1810 1195 Balance -385.6 -62 Result Diagrams: 03/22/20 03:43 03/22/20 03:43 Additional Labs: Accuchecks 03/22/20 03/22/20 03/22/20 12:46 08:10 04:30 POC Glucose 220 H 86 131 H 03/22/20 03/21/20 03/21/20 00:18 21:12 16:09 POC Glucose 288 H 308 H 179 H Hospitalist ROS - Medication Medications: Active Medications Generic Name Dose Route Start Last Admin Trade Name Freq PRN Reason Stop Dose Admin Acetaminophen 650 mg 03/18/20 22:45 03/22/20 08:33 Tylenol Elixir PO 650 mg Q6H PRN Administration Fever > 101 or Mild Pain Albuterol/Ipratropium 3 ml 03/19/20 13:00 03/22/20 12:07 Duoneb NEB 3 ml [id number] MIMI Administration Insulin Human Regular 100 101 mls @ 0 mls/hr 03/18/20 22:45 03/19/20 08:00 units/ Sodium Chloride IVPB 101 mls INF MIMI Administration Protocol Titrate Insulin Glargine 10 units/ 0.1 mls @ 0 mls/hr 03/19/20 21:00 03/22/20 08:59 Miscellaneous Medication SC Not Given BID MIMI Insulin Human Lispro 0 units 03/20/20 16:37 03/22/20 13:48 Humalog SC 3 unit .MILD SLIDING SCALE PRN Administration Mild Correctional Scale Insulin Human Lispro 0 units 03/22/20 00:24 03/22/20 00:36 Humalog SC 3 unit .BEDTIME SLIDING SC PRN Administration Bedtime Correctional Scale Sodium Chloride 10 ml 03/19/20 09:00 03/22/20 08:32 Flush - Normal Saline IVF 10 ml Q12HR MIMI Administration Hosp A/P - Plan Physical Exam: General - other findings: intubated Eye: PERRL, anicteric sclera ENT: normocephalic atraumatic, no oropharyngeal lesions, moist mucosa Neck: supple, symmetric, no JVD, no thyromegaly, no lymphadenopathy, no carotid bruit Heart: RRR, no murmur, no gallops, no rubs, normal peripheral pulses Respiratory: CTAB, no wheezes, no rales, no ronchi, normal chest expansion, no tachypnea, normal percussion Gastrointestinal: soft, non-tender, non-distended, normal bowel sounds, no palpable masses, no hepatomegaly, no splenomegaly, no bruit Extremities: no cyanosis, no clubbing, no edema Skin: normal turgor, no lesions, no rashes Neurological - other findings: intubated, sedated, rass -2 Musculoskeletal: normal tone, normal strength, no muscle wasting Psychiatric - other findings: unable to evaluate Assessments/Plan: #Thrombocytopenia - unclear etiology. Suspect related to chronic meth use, recent cardiac arrest, or ?infection. #Pre-hospital Cardiac Arrest w/ ROSC #Acute Hypoxic Hypercapenic Respiratory Failure - s/p extubate on 03/20 #DKA - resolved. #NSTEMI - possible d/t demand ischemia #Severe Metabolic Acidosis - which has improved #FARHEEN - improving. #Hyperkalemia - resolved with dialysis #Bradycardia -resolved #Substance Abuse - UDS positive meth #Acute metabolic encephalopathy #Urinary retention - Henry placed by urology 03/22/20 mental status returned to baseline. Plt trending down, no evidence of bleeding. Renal function much improved. PT eval. Start Flomax, will keep the Henry in for now; given hx of urinary retention, and low plt, will try to avoid the risk to put in back in. Monitor daily CBC 03/21/20 Pt is doing better. Cr improved. Mental status improved with intermittent confusion. Transfer to tele. CM/Palliative cares consult. cont supportive cares for now pending mental status 03/20/20 pt is s/p extubation, and weaned off vasopressors. Currently hemodynamically stable. Arousable. Concerning for possible anoxic brain injury from cardiac arrest, awaiting for neurologic recovery. Updated patient's . cont supportive cares. Add insulin sliding scale. Follow Echo. Appreciate specialists' input. 03/19/20 Patient remains critically ill, requiring mechanical ventilatory support with multiple vasopressors. Continue supportive cares including empiric IV abx, wean pressors as surya to keep MAP>65 Attempted to call family but no response. Appreciate specialists' input. Check Echo. Cont to wean insulin gtt. Monitor serial labs. Prognosis poor. Palliative care consult to address goal of cares.
[2020-03-22] MEDS: Ondansetron PF 4 MG/2 ML Vial IVP PRN (16:33)
--- NOTE | 2020-03-22 17:44 | PRG ---
DATE OF SERVICE: 03/22/2020 SUBJECTIVE: Mr. Peres is more alert today. He knows he is in the hospital and knows he is in [place]. The patient still does not know where he had his bypass surgery done, he thinks it was here, but there is really nothing in the chart to support that. The patient does remember doing a lot of methamphetamine before he collapsed prompting this admission. OBJECTIVE: VITAL SIGNS: Blood pressure 139/73, pulse 90s. LUNGS: Clear. CARDIAC: Normal S1 and normal S2. ABDOMEN: Soft, nontender. EXTREMITIES: No edema. LABORATORY DATA: The patient is more anemic. Hemoglobin is 8.4. ASSESSMENT: 1. Episode of unresponsiveness and severe acidosis, appears likely related to a drug overdose. 2. Bypass surgery. The patient still does not know which institution that was performed in. 3. Severe acidosis, metabolic, resolved. 4. Hypokalemia, being corrected. PLAN: 1. Continue to correct potassium. 2. Echocardiogram was normal. 3. Hopefully, his mental status will improve some history from any family members to indicate where his bypass surgery was done. 4. [id number] infarction, looks like demand ischemia associated with severe acidosis. On arrival here, the pH was 6.75, which is really amazing to survive that. Job ID: [id number]
[2020-03-22] MEDS: Tamsulosin HCl 0.4 MG CAP PO SCH (20:24)
[2020-03-23 05:16] LABS: Hemoglobin 9.5 g/dL (14.0-18.0); Mean Corpuscular HGB CONC 31.4 g/dL (32.0-36.0); Mean Corpuscular Hemoglobin 28.1 pg (27.0-31.0); Mean Corpuscular Volume 89.3 fL (78.0-98.0); Mean Platelet Volume 10.1 fL (7.4-10.4); Platelet Count 24 thou/uL (130-400); RBC Distribution Width 13.4 % (11.5-14.5); White Blood Cell (WBC) Count 5.8 thou/uL (4.8-10.8)
[2020-03-23 05:19] LABS: Anion Gap 13 mmol/L (10-20); BUN (Urea Nitrogen) 21 mg/dL (8.4-25.7); Calc. Creatinine Clearance 72 mL/min (70-130); Calcium 8.2 mg/dL (7.8-10.44); Carbon Dioxide 24 mmol/L (23-31); Chloride 102 mmol/L (98-107); Estimated GFR-MDRD 87; Glucose 114 mg/dL (80-115); Potassium 3.3 mmol/L (3.5-5.1); Sodium 136 mmol/L (136-145)
[2020-03-23 05:32] LABS: Band 14 % (5-11); Eosinophils 1 % (0-10); Lymphocytes 12 % (21-51); MDiff Complete? YES; Metamyelocyte 2 % (0-0); Monocytes 12 % (0-10); Myelocyte 1 % (0-0); Neutrophil 58 % (42-75)
[2020-03-23] MEDS ORDERED: Potassium Chloride 40 MEQ in Premix Bag 1 BAG IVPB SCH (05:45)
[2020-03-23] MEDS ORDERED: Potassium Chloride 20 MEQ TAB PO SCH (07:45)
[2020-03-23] MEDS ORDERED: Phenazopyridine HCl 100 MG TAB PO SCH (09:15)
[2020-03-23] MEDS: Insulin Glargine 10 UNITS in Pre-Filled Syringe 1 EACH SC SCH ×2 (10:17→21:46)
[2020-03-23] MEDS: Ondansetron PF 4 MG/2 ML Vial IVP PRN ×3 (10:17→21:45)
[2020-03-23] MEDS: Acetaminophen 325 MG TAB PO PRN ×3 (10:27→21:45)
[2020-03-23 10:38] LABS: INR-International Normal Ratio 1.1; Prothrombin Time 13.7 sec (12.0-14.7)
--- NOTE | 2020-03-23 10:52 | PRG ---
DATE OF SERVICE: 03/23/2020 SUBJECTIVE: Mr. Peres seems more alert today. He definitely knows he is in the hospital. He still does not recall where he had his bypass surgery that apparently was done recently. No chest pain or pressure. OBJECTIVE: VITAL SIGNS: Blood pressure is 115/68, pulse is variable in the 90s now. LUNGS: Clear. CARDIAC: Normal S1 and S2. ABDOMEN: Soft and nontender. EXTREMITIES: No edema. LABORATORY DATA: The patient's platelet counts dropped to 24,000. ASSESSMENT: 1. The patient had bypass surgery recently. He does not know where that was done and he has done in last few months in an outside institution. 2. Severe low platelet count. 3. Unfortunately ongoing methamphetamine dependence/addiction. 4. Diabetes with diabetic ketoacidosis. 5. Non ST elevation infarction related to demand ischemia secondary to severe acidosis with pH 6.75 on 03/18/2020. 6. At this time, it seems likely that the non-ST elevation infarction was related to demand ischemia from severe acidosis. The patient did report that he was continuing to use methamphetamine and also was positive in his drug screen. In addition, he clearly had diabetic ketoacidosis on admission with bradycardia. It does not appear to be primary cardiac event. PLAN: 1. Investigation about the low platelet count is being undertaken. 2. It appears that aspirin is on hold for now. Hematology consultation. 3. I did call phone number of the significant other listed in the computer, Chela Eri, but only got an answering machine to try to get some further information and try to update family. Obviously, long-term prognosis is poor. The patient continues to consume methamphetamine and not follow up concerning his diabetes. He indicates to me that he has not been seeing anybody about his diabetes is what he told me today. ADDENDUM: We did speak with Mr. Peres's significant other, Ms. Hwang. She indicates he has unfortunately been continuing to consume methamphetamine and when she tried to convince him to stop, he told her "it was none of your business." The patient was found unresponsive by Ms. Hwang and she promptly called an ambulance and they resuscitated him there and also in the ambulance. It appears that the source of the collapse was methamphetamine use and diabetic ketoacidosis. Ms. Hwang does not know where Mr. Morenos surgery was done, she thinks it could have been done at [facility] or possibly [facility]. I explained her the prognosis long-term is poor, especially if he continues to consume methamphetamine. Job ID: [id number]
[2020-03-23 10:56] LABS: ALT (SGPT) 14 U/L (8-55); AST (SGOT) 21 U/L (5-34); Albumin 2.6 g/dL (3.4-4.8); Alkaline Phosphatase 82 U/L (40-110); Anion Gap 13 mmol/L (10-20); BUN (Urea Nitrogen) 19 mg/dL (8.4-25.7); Bilirubin, Total 0.5 mg/dL (0.2-1.2); Calc. Creatinine Clearance 74 mL/min (70-130); Calcium 8.1 mg/dL (7.8-10.44); Carbon Dioxide 23 mmol/L (23-31); Chloride 102 mmol/L (98-107); Estimated GFR-MDRD 84; Globulin 2.9 g/dL (2.4-3.5); Glucose 177 mg/dL (80-115); Iron 16 ug/dL (65-175); Iron Binding Capacity, Total 156 mcg/dL (261-462); Potassium 3.9 mmol/L (3.5-5.1); Protein, Total 5.5 g/dL (5.8-8.1); Sodium 134 mmol/L (136-145)
[2020-03-23 11:29] LABS: Ferritin 353.13 ng/mL (22-322)
[2020-03-23 11:59] LABS: Vitamin B12 Greater than 2000 pg/mL (211-911)
--- NOTE | 2020-03-23 14:12 | PDOC.HOSPP ---
- Subjective Subjective: c/o bladder spasms. pt has indwelling de guzman catheter no chest pain. PLT dropped to 24k today. no evidence of bleeding pt has poor insight about his conditions - Objective Vital Signs & Weight: Vital Signs (12 hours) Temp Pulse Resp BP Pulse Ox 03/23/20 13:20 107 H 16 97 03/23/20 12:05 98.2 F 106 H 18 123/83 98 03/23/20 07:42 98.0 F 107 H 12 115/68 95 03/23/20 06:44 102 H 16 96 03/23/20 03:31 98.4 F 59 L 16 90/54 L 96 Weight Admit Weight 135 lb 5.821 oz Weight 140 lb 8 oz Most Recent Monitor Data Heart Rate from ECG 106 NIBP 142/80 NIBP BP-Mean 100 Respiration from ECG 16 SpO2 98 I&O: 03/22/20 03/23/20 03/24/20 06:59 06:59 06:59 Intake Total 1133 1000 120 Output Total 1195 750 600 Balance -62 250 -480 Result Diagrams: 03/23/20 04:04 03/23/20 10:09 Additional Labs: Accuchecks 03/23/20 03/23/20 03/23/20 13:39 08:27 04:05 POC Glucose 162 H 97 115 H 03/23/20 03/22/20 03/22/20 00:56 20:10 16:53 POC Glucose 148 H 133 H 161 H Hospitalist ROS - Medication Medications: Active Medications Generic Name Dose Route Start Last Admin Trade Name Freq PRN Reason Stop Dose Admin Acetaminophen 650 mg 03/23/20 09:11 03/23/20 10:27 Tylenol PO 650 mg Q6H PRN Administration Mild-Moderate Pain (1-5) Albuterol/Ipratropium 3 ml 03/19/20 13:00 03/23/20 13:20 Duoneb NEB 3 ml [id number] MIMI Administration Insulin Human Regular 100 101 mls @ 0 mls/hr 03/18/20 22:45 03/19/20 08:00 units/ Sodium Chloride IVPB 101 mls INF MIMI Administration Protocol Titrate Insulin Glargine 10 units/ 0.1 mls @ 0 mls/hr 03/19/20 21:00 03/23/20 10:17 Miscellaneous Medication SC 0.1 mls BID MIMI Administration Insulin Human Lispro 0 units 03/20/20 16:37 03/22/20 18:09 Humalog SC 2 unit .MILD SLIDING SCALE PRN Administration Mild Correctional Scale Insulin Human Lispro 0 units 03/22/20 00:24 03/22/20 00:36 Humalog SC 3 unit .BEDTIME SLIDING SC PRN Administration Bedtime Correctional Scale Ondansetron HCl 4 mg 03/18/20 22:44 03/23/20 10:17 Zofran IVP 4 mg Q6H PRN Administration Nausea/Vomiting use 1st Sodium Chloride 10 ml 03/19/20 09:00 03/23/20 10:37 Flush - Normal Saline IVF 10 ml Q12HR MIMI Administration Tamsulosin HCl 0.4 mg 03/22/20 21:00 03/22/20 20:24 Flomax PO 0.4 mg HS MIMI Administration Hosp A/P - Plan Physical Exam: General - other findings: intubated Eye: PERRL, anicteric sclera ENT: normocephalic atraumatic, no oropharyngeal lesions, moist mucosa Neck: supple, symmetric, no JVD, no thyromegaly, no lymphadenopathy, no carotid bruit Heart: RRR, no murmur, no gallops, no rubs, normal peripheral pulses Respiratory: CTAB, no wheezes, no rales, no ronchi, normal chest expansion, no tachypnea, normal percussion Gastrointestinal: soft, non-tender, non-distended, normal bowel sounds, no palpable masses, no hepatomegaly, no splenomegaly, no bruit Extremities: no cyanosis, no clubbing, no edema Skin: normal turgor, no lesions, no rashes Neurological - other findings: intubated, sedated, rass -2 Musculoskeletal: normal tone, normal strength, no muscle wasting Psychiatric - other findings: unable to evaluate Assessments/Plan: #Thrombocytopenia, acute, severe - unclear etiology. Suspect related to chronic meth use, recent cardiac arrest, or ?infection. #Pre-hospital Cardiac Arrest w/ ROSC - likely secondary due to severe acidosis, not a primary cardiac #Acute Hypoxic Hypercapenic Respiratory Failure - s/p extubate on 03/20 #DKA - resolved. #NSTEMI - possible d/t demand ischemia #Severe Metabolic Acidosis - which has improved #FARHEEN - resolved #Hyperkalemia - resolved with dialysis #Bradycardia -resolved #Substance Abuse - UDS positive meth #Acute metabolic encephalopathy #Urinary retention - De Guzman placed by urology #DM2 - uncontrolled. A1C>12 03/23/20 His PLT cont to trend down, 24K today. no evidence of bleeding. Unclear etiology , ? chronic meth use, occult infection, recent cardiac arrest? check CXR 2 V. Check Peripheral blood smear, LDH, iron panel, Vit B12/Folate, fibrinogen. Antiplatelet therapy, and anticoagulant are on hold. IV abx was discontinued yesterday. Pt does not appear to be septic. Consult Hematology for further recommendation. NO role for PLT transfusion unless <10K or evidence of bleeding. d/w Dr. Campa, he is considering nuclear stress test prior to discharge. Appreciate his input. add Pyridium for bladder spasm. 03/22/20 mental status returned to baseline. Plt trending down, no evidence of bleeding. Renal function much improved. PT eval. Start Flomax, will keep the De Guzman in for now; given hx of urinary retention, and low plt, will try to avoid the risk to put in back in. Monitor daily CBC 03/21/20 Pt is doing better. Cr improved. Mental status improved with intermittent confusion. Transfer to tele. CM/Palliative cares consult. cont supportive cares for now pending mental status 03/20/20 pt is s/p extubation, and weaned off vasopressors. Currently hemodynamically stable. Arousable. Concerning for possible anoxic brain injury from cardiac arrest, awaiting for neurologic recovery. Updated patient's . cont supportive cares. Add insulin sliding scale. Follow Echo. Appreciate specialists' input. 03/19/20 Patient remains critically ill, requiring mechanical ventilatory support with multiple vasopressors. Continue supportive cares including empiric IV abx, wean pressors as surya to keep MAP>65 Attempted to call family but no response. Appreciate specialists' input. Check Echo. Cont to wean insulin gtt. Monitor serial labs. Prognosis poor. Palliative care consult to address goal of cares.
--- NOTE | 2020-03-23 17:47 | CON ---
DATE OF CONSULTATION: REASON FOR CONSULTATION: Thrombocytopenia. HISTORY OF PRESENT ILLNESS: The patient is a 64-year-old gentleman with past medical history of substance abuse, who was brought to the ER on 03/18 via helicopter for unconsciousness, bradycardia, and hypotension. He had CPR by EMS. He was on epinephrine drip and intubated in the field. He did have spontaneous return of circulation and was admitted to the ICU. He received one dialysis treatment on day of admission for metabolic acidosis. He has been recovering over the last several days and has been extubated and is currently on the telemetry floor. He has had encephalopathy since arrival, which has slowly improved. He has a past medical history of amphetamine and methamphetamine drug use. He had a CABG approximately 2 months ago. On admission, his platelet count was 209,000, has slowly trended downward during this hospitalization to 24,000. The patient was seen at bedside. He his alert and answers questions appropriately. He complains of fatigue and stomach pain at this time. Denies any bleeding. PAST MEDICAL HISTORY: 1. Hypertension. 2. Diabetes mellitus 2. 3. Hyperlipidemia. 4. Coronary artery disease. PAST SURGICAL HISTORY: Cardiac bypass. ALLERGIES: NO KNOWN DRUG ALLERGIES. HOME MEDICATIONS: None. FAMILY HISTORY: Noncontributory. SOCIAL HISTORY: Lives with his girlfriend. Daily illicit drug use, tobacco and alcohol use. REVIEW OF SYSTEMS: Ten-point review of systems is negative except for noted in HPI. PHYSICAL EXAMINATION: VITAL SIGNS: Temperature is 98.2, pulse is 106, respiratory rate 18, BP is 123/ 83, and he is 98% on room air. GENERAL: This is a chronically ill-appearing male, in no acute distress. HEENT: Normocephalic and atraumatic. Pupils are equal and reactive to light. CV: Regular rate and rhythm. LUNGS: Clear. ABDOMEN: Soft and nontender. Bowel sounds are positive. EXTREMITIES: No clubbing or cyanosis. SKIN: He has scattered sores on his hands and arms. NEUROLOGIC: Nonfocal. PERTINENT LABORATORY DATA AND X-RAYS: Current WBCs are 5.8, hemoglobin 9.5, hematocrit 30.4, platelet count 24,000, 58% neutrophils, 12% lymphocytes, 12% monocytes, and 14% bands. PT 13.7, INR is 1.1, and fibrinogen 461. Sodium 134, potassium 3.9, chloride 102, CO2 is 23, BUN is 19, creatinine 0.91, hemoglobin A1c is 12.7, and calcium 8.1. Bilirubin 0.5, AST is 21, ALT is 14, and alkaline phosphatase is 80. Serum total protein is 5.5, albumin 2.6, and globulin 2.9. B12 is greater than 2000 and folate 8.6. LDH is 255. C-reactive protein is 7.42. Iron studies show ferritin 353, TIBC 156, and iron 16. Drug screen was positive for amphetamines, methamphetamines, and cannabinoids. COVID-19. Chest, abdomen, and pelvis CT was unremarkable. ASSESSMENT: 1. Cardiac arrest with return of spontaneous circulation. 2. Acute hypoxic respiratory failure. 3. Substance abuse. 4. Poorly controlled diabetes. 5. Renal failure. DISCUSSION: The patient has a longstanding illicit drug use. He did require dialysis on this admission with only heparin flush. His CABG was approximately 2 months ago. I do not see where he had any heparin. I do not think that this is heparin-induced thrombocytopenia. There is no evidence of TTP. His fibrinogen is normal. He does have a significant bandemia on his CBC. His thrombocytopenia is most likely due to his acute illness and from his drug use. I would recommend that we continue to follow his CBC and transfuse if his platelets < 15K or bleeding. I do not recommend any steroids. Hold anticoagulation until platelets improve. The case has been discussed in detail and reviewed with Dr. Rojo. Thank you for the consult. Job ID: [id number] MTDD
[2020-03-23] MEDS: Tamsulosin HCl 0.4 MG CAP PO SCH (21:45)
[2020-03-23] MEDS ORDERED: Promethazine HCl 25 MG in Sodium Chloride 0.9% 50 ML IVPB PRN (23:58)
[2020-03-24 04:43] LABS: Platelet Count 23 thou/uL (130-400)
[2020-03-24 04:55] LABS: ALT (SGPT) 11 U/L (8-55); AST (SGOT) 19 U/L (5-34); Albumin 2.5 g/dL (3.4-4.8); Alkaline Phosphatase 81 U/L (40-110); Anion Gap 13 mmol/L (10-20); BUN (Urea Nitrogen) 18 mg/dL (8.4-25.7); Bilirubin, Total 0.5 mg/dL (0.2-1.2); Calc. Creatinine Clearance 79 mL/min (70-130); Calcium 8.2 mg/dL (7.8-10.44); Carbon Dioxide 23 mmol/L (23-31); Chloride 103 mmol/L (98-107); Estimated GFR-MDRD Greater than 90; Globulin 2.8 g/dL (2.4-3.5); Glucose 103 mg/dL (80-115); Potassium 3.8 mmol/L (3.5-5.1); Protein, Total 5.3 g/dL (5.8-8.1); Sodium 135 mmol/L (136-145)
[2020-03-24 05:12] LABS: Band 15 % (5-11); Eosinophils 2 % (0-10); Hemoglobin 9.1 g/dL (14.0-18.0); Lymphocytes 10 % (21-51); MDiff Complete? YES; Mean Corpuscular HGB CONC 31.3 g/dL (32.0-36.0); Mean Corpuscular Volume 89.6 fL (78.0-98.0); Mean Platelet Volume 10.1 fL (7.4-10.4); Metamyelocyte 7 % (0-0); Monocytes 16 % (0-10); Myelocyte 2 % (0-0); Neutrophil 48 % (42-75); Platelet Morphology Comment Appears Decreased; RBC Distribution Width 13.3 % (11.5-14.5); Red Blood Cell (RBC) Count 3.24 mill/uL (4.70-6.10); White Blood Cell (WBC) Count 6.8 thou/uL (4.8-10.8)
[2020-03-24] MEDS: Acetaminophen 325 MG TAB PO PRN ×2 (08:04→14:28)
[2020-03-24] MEDS: Insulin Glargine 10 UNITS in Pre-Filled Syringe 1 EACH SC SCH ×2 (11:03→21:22)
--- NOTE | 2020-03-24 11:31 | NM ---
CARDIAC SPECT: CLINICAL HISTORY: Non-ST elevation myocardial infarction. Chest pain, CABG, hypertension, diabetes, and dyslipidemia. TECHNIQUE: A myocardial perfusion scan was performed using the single isotope one day protocol with technetium-9 9m sestamibi. 11 mCi were injected intravenously for the rest exam followed by 27 mCi for the stress exam. Pharmacologic stress with Lexiscan was monitored and interpreted by Dr. Campa. FINDINGS: There are fixed defects in the septum, apex, and the inferolateral macario. No reversible defects are s een. GATED SPECT LVEF: 41%. WALL MOTION EXAM: Global hypokinesis. IMPRESSION: No evidence of reversible ischemia. POS: OFF
--- NOTE | 2020-03-24 11:44 | RAD ---
XR Chest Pa Lat STANDARD HISTORY: Concern for pneumonia COMPARISON: 03/21/2020 FINDINGS: There are changes of median sternotomy. Left subclavian central venous catheter remains in place. Heart size is normal. No pneumothorax is seen. There is a mild infiltrate versus atelectatic change in the left lung base. Accompanying small effusion cannot be excluded.
[2020-03-24] MEDS ORDERED: Regadenoson 0.4 MG/5 ML SYRINGE ONE (13:16)
[2020-03-24] MEDS ORDERED: traMADol HCl 50 MG TAB PO SCH (15:45)
--- NOTE | 2020-03-24 15:48 | PDOC.HOSPP ---
- Subjective Subjective: Seen examined at bedside. No acute events overnight. His platelets remained stable. No evidence of bleeding. He complained of neck pain. Patient underwent nuclear stress test which was negative for reversible ischemia. - Objective Vital Signs & Weight: Vital Signs (12 hours) Temp Pulse Pulse Pulse Resp BP BP 03/24/20 13:09 100 107 H 95/59 L 117/79 03/24/20 12:47 107 H 20 03/24/20 11:54 112 H 24 H 03/24/20 08:00 98.3 F 102 H 20 03/24/20 07:21 107 H 16 BP Pulse Ox 03/24/20 13:09 03/24/20 12:47 95 03/24/20 11:54 107/71 99 03/24/20 08:00 109/74 94 L 03/24/20 07:21 96 Weight Admit Weight 135 lb 5.821 oz Weight 138 lb 3.2 oz Most Recent Monitor Data Heart Rate from ECG 106 NIBP 142/80 NIBP BP-Mean 100 Respiration from ECG 16 SpO2 98 I&O: 03/23/20 03/24/20 03/25/20 06:59 06:59 06:59 Intake Total 1000 600 Output Total 750 1000 Balance 250 -400 Result Diagrams: 03/24/20 03:57 03/24/20 03:57 Additional Labs: Accuchecks 03/24/20 03/24/20 03/24/20 11:54 08:01 04:19 POC Glucose 176 H 124 H 95 03/24/20 03/23/20 03/23/20 00:20 20:18 16:39 POC Glucose 114 H 108 124 H 03/19/20 03/18/20 10:24 20:11 POC Glucose 316 H Greater than 550 H* Hospitalist ROS - Medication Medications: Active Medications Generic Name Dose Route Start Last Admin Trade Name Freq PRN Reason Stop Dose Admin Acetaminophen 650 mg 03/23/20 09:11 03/24/20 14:28 Tylenol PO 650 mg Q6H PRN Administration Mild-Moderate Pain (1-5) Albuterol/Ipratropium 3 ml 03/19/20 13:00 03/24/20 12:47 Duoneb NEB 3 ml [id number] MIMI Administration Insulin Human Regular 100 101 mls @ 0 mls/hr 03/18/20 22:45 03/19/20 08:00 units/ Sodium Chloride IVPB 101 mls INF MIMI Administration Protocol Titrate Insulin Glargine 10 units/ 0.1 mls @ 0 mls/hr 03/19/20 21:00 03/24/20 11:03 Miscellaneous Medication SC 0.1 mls BID MIMI Administration Promethazine HCl 25 mg/ Sodium 51 mls @ 204 mls/hr 03/23/20 23:58 03/24/20 00 :31 Chloride IVPB 51 mls Q6H PRN Administration Nausea/Vomiting Insulin Human Lispro 0 units 03/20/20 16:37 03/22/20 18:09 Humalog SC 2 unit .MILD SLIDING SCALE PRN Administration Mild Correctional Scale Insulin Human Lispro 0 units 03/22/20 00:24 03/22/20 00:36 Humalog SC 3 unit .BEDTIME SLIDING SC PRN Administration Bedtime Correctional Scale Ondansetron HCl 4 mg 03/18/20 22:44 03/23/20 21:45 Zofran IVP 4 mg Q6H PRN Administration Nausea/Vomiting use 1st Sodium Chloride 10 ml 03/19/20 09:00 03/24/20 11:07 Flush - Normal Saline IVF 10 ml Q12HR MIMI Administration Tamsulosin HCl 0.4 mg 03/22/20 21:00 03/23/20 21:45 Flomax PO 0.4 mg HS MIMI Administration Hosp A/P - Plan Physical Exam: General - other findings: intubated Eye: PERRL, anicteric sclera ENT: normocephalic atraumatic, no oropharyngeal lesions, moist mucosa Neck: supple, symmetric, no JVD, no thyromegaly, no lymphadenopathy, no carotid bruit Heart: RRR, no murmur, no gallops, no rubs, normal peripheral pulses Respiratory: CTAB, no wheezes, no rales, no ronchi, normal chest expansion, no tachypnea, normal percussion Gastrointestinal: soft, non-tender, non-distended, normal bowel sounds, no palpable masses, no hepatomegaly, no splenomegaly, no bruit Extremities: no cyanosis, no clubbing, no edema Skin: normal turgor, no lesions, no rashes Neurological - other findings: intubated, sedated, rass -2 Musculoskeletal: normal tone, normal strength, no muscle wasting Psychiatric - other findings: unable to evaluate Assessments/Plan: #Thrombocytopenia, acute, severe - unclear etiology. Suspect related to chronic meth use, recent cardiac arrest, or ?infection. #Pre-hospital Cardiac Arrest w/ ROSC - likely secondary due to severe acidosis, not a primary cardiac. Nuclear str #Acute Hypoxic Hypercapenic Respiratory Failure - s/p extubate on 03/20 #DKA - resolved. #NSTEMI - possible d/t demand ischemia #Severe Metabolic Acidosis - which has improved #FARHEEN - resolved #Hyperkalemia - resolved with dialysis #Bradycardia -resolved #Substance Abuse - UDS positive meth #Acute metabolic encephalopathy #Urinary retention - Henry placed by urology #DM2 - uncontrolled. A1C>12 03/24/2020 His platelets are stable. Patient underwent nuclear stress test, which was negative for reversible ischemia. Apparently patient had CABG done at [facility]. His unresponsive episode was unlikely due to cardiac as primary. Likely secondary to metabolic acidosis in setting of DKA, and methamphetamine abuse. His CRP is slightly elevated. Chest x-ray did not show any evidence of infiltrate. Appreciate input from hematology. No role for platelet transfusion at this time. Continue monitor CBC. Patient will likely need placement upon discharge. 03/23/20 His PLT cont to trend down, 24K today. no evidence of bleeding. Unclear etiology , ? chronic meth use, occult infection, recent cardiac arrest? check CXR 2 V. Check Peripheral blood smear, LDH, iron panel, Vit B12/Folate, fibrinogen. Antiplatelet therapy, and anticoagulant are on hold. IV abx was discontinued yesterday. Pt does not appear to be septic. Consult Hematology for further recommendation. NO role for PLT transfusion unless <10K or evidence of bleeding. d/w Dr. Campa, he is considering nuclear stress test prior to discharge. Appreciate his input. add Pyridium for bladder spasm. 03/22/20 mental status returned to baseline. Plt trending down, no evidence of bleeding. Renal function much improved. PT eval. Start Flomax, will keep the Henry in for now; given hx of urinary retention, and low plt, will try to avoid the risk to put in back in. Monitor daily CBC 03/21/20 Pt is doing better. Cr improved. Mental status improved with intermittent confusion. Transfer to tele. CM/Palliative cares consult. cont supportive cares for now pending mental status 03/20/20 pt is s/p extubation, and weaned off vasopressors. Currently hemodynamically stable. Arousable. Concerning for possible anoxic brain injury from cardiac arrest, awaiting for neurologic recovery. Updated patient's . cont supportive cares. Add insulin sliding scale. Follow Echo. Appreciate specialists' input. 03/19/20 Patient remains critically ill, requiring mechanical ventilatory support with multiple vasopressors. Continue supportive cares including empiric IV abx, wean pressors as surya to keep MAP>65 Attempted to call family but no response. Appreciate specialists' input. Check Echo. Cont to wean insulin gtt. Monitor serial labs. Prognosis poor. Palliative care consult to address goal of cares.
--- NOTE | 2020-03-24 15:57 | PRG ---
DATE OF SERVICE: 03/24/2020 SUBJECTIVE: Mr. Peres has no chest pain or pressure. He says he has trouble eating. OBJECTIVE: VITAL SIGNS: Blood pressure 117/79, pulse is in 90s. LUNGS: Clear. CARDIAC: Normal S1, normal S2. ABDOMEN: Soft, nontender. EXTREMITIES: There is no edema. DIAGNOSTIC DATA: Nuclear medicine stress test revealed a moderate-size fixed defect in the distal septum and apex. No reversible ischemia. The distal inferior wall looks involved to I think that is probably all the same distribution. LABORATORY DATA: Platelet count still really low at 23,000. ASSESSMENT: 1. Episode of unresponsiveness secondary to severe metabolic acidosis, which appears to be a combination of diabetic ketoacidosis and illicit drug use. 2. Longstanding amphetamine/methamphetamine dependence. 3. Fixed defects on the stress test, but no ischemia. 4. Severe thrombocytopenia. PLAN: 1. He is off medicines which could cause thrombocytopenia, he is also on off aspirin. 2. No other intervention indicated from a Cardiac standpoint at this time. Blood pressure is adequate tomorrow. May consider adding very low-dose beta-patricio mentioned extensively in the chart. Long-term prognosis is poor due to patient's continued methamphetamine consumption and noncompliance. Job ID: [id number]
[2020-03-24] MEDS: Diclofenac 1% 100 GM GEL TP SCH ×2 (17:36→21:33)
[2020-03-24] MEDS: Lidocaine 5% Patch TD SCH (17:38)
[2020-03-24] MEDS: Docusate 100 MG CAP PO SCH (21:22)
[2020-03-24] MEDS: Tamsulosin HCl 0.4 MG CAP PO SCH (21:22)
--- NOTE | 2020-03-24 22:34 | RAD ---
Exam: 1 view abdomen COMPARISON: None Correlation: Chest abdomen pelvis CT 03/18/2020 FINDINGS: 1. View abdomen: Right-sided vascular catheter is identified, terminating at the level of the L3-L4 d isc space Paucity gas in the colon. Small amount of fecal material and air is noted in the right hemicolon as w ell as the sigmoid colon and rectum. There are multiple markedly distended loops of small bowel, worrisome for high-grade small bowel obstruction. No definite pneumoperitoneum on this supine project ion. IMPRESSION: Findings worrisome for high-grade small bowel obstruction.
--- NOTE | 2020-03-25 00:43 | PDOC.EVN ---
Event Note - Event Note Event Note: Received a call from nursing that patient felt his Henry was clogged although he was still having urinary output and the bladder scan only showed 60 mL's in bladder. Patient states that he feels pressure above his umbilicus and feels that it is poking out when it normally does not. There is concern that he may be having bladder spasms from nursing as he feels pain with the Henry. Urinalysis and KUB ordered at this time.
[2020-03-25 01:11] LABS: Bacteria/HPF None Seen HPF (None Seen); Bilirubin Negative (Negative); Blood, Urine 2+ (Negative); Clarity Clear (Clear); Glucose, Urine (Dipstick) 500 mg/dL (Negative); Ketone, Urine Negative (Negative); Leukocyte 75 Leu/uL (Negative); Nitrite Negative (Negative); Protein, Urine (Dipstick) 100 mg/dL (Neg-Trace); RBC/HPF Greater than 50 HPF (0-3); Specific Gravity, Urine 1.028 (1.002-1.036); Squamous Epithelial 0-3 HPF (0-3); Urobilinogen Normal mg/dL (Less than 2); WBC/HPF 21-50 HPF (0-3); Yeast-Budding 2+ HPF (None Seen)
[2020-03-25] MEDS ORDERED: Sodium Chloride 0.9% 1,000 ML IV SCH (04:15)
[2020-03-25 04:26] LABS: #Eosinphils 0.1 thou/uL (0.0-0.7); #Lymphocytes 0.7 thou/uL (1.20-3.40); #Monocytes 0.5 thou/uL (0.11-0.59); #Neutrophils 7.4 thou/uL (1.40-6.50); %Basophils 0.2 % (0.0-1.0); %Eosinophils 0.6 % (0.0-10.0); %Lymphocytes 7.6 % (21.0-51.0); %Monocytes 5.9 % (0.0-10.0); %Neutrophils 85.7 % (42.0-75.0); Hemoglobin 9.1 g/dL (14.0-18.0); Mean Corpuscular Hemoglobin 28.2 pg (27.0-31.0); Mean Corpuscular Volume 90.9 fL (78.0-98.0); Mean Platelet Volume 10.6 fL (7.4-10.4); Platelet Count 29 thou/uL (130-400); RBC Distribution Width 13.4 % (11.5-14.5); Red Blood Cell (RBC) Count 3.24 mill/uL (4.70-6.10); White Blood Cell (WBC) Count 8.6 thou/uL (4.8-10.8)
[2020-03-25 04:40] LABS: Anion Gap 14 mmol/L (10-20); BUN (Urea Nitrogen) 19 mg/dL (8.4-25.7); Calc. Creatinine Clearance 74 mL/min (70-130); Calcium 8.2 mg/dL (7.8-10.44); Carbon Dioxide 23 mmol/L (23-31); Chloride 101 mmol/L (98-107); Estimated GFR-MDRD 85; Glucose 61 mg/dL (80-115); Magnesium 1.5 mg/dL (1.6-2.6); Potassium 3.6 mmol/L (3.5-5.1); Sodium 134 mmol/L (136-145)
[2020-03-25] MEDS ORDERED: Magnesium 2 GM/50 ML 2 GM in Premix Bag 1 BAG IVPB SCH (06:30)
[2020-03-25] MEDS: Lidocaine Patch Removal 1 EACH TOP SCH (07:15)
[2020-03-25] MEDS ORDERED: Dextrose 50% Abboject 50 ML SYRINGE ONE (07:50)
--- NOTE | 2020-03-25 07:51 | CT ---
PRELIMINARY REPORT/[facility]/EMERGENCY AFTER HOURS PROCEDURE: This report was discussed with Charla Guardado RN by July Raymond on Mar 25, 2020 03:41:00 CDT. Addendum electronically signed by July Raymond on March 25, 2020 3:41:49 AM CDT FINAL REPORT: EXAM: CT ABDOMEN PELVIS WITH CONTRAST: HISTORY: POSSIBLE SMALL BOWEL OBSTRUCTION. PT C/O ABOMDINAL PAIN AND NAUSEA. COMPARISON: None FINDINGS: Small bilateral, left greater than right, pleural effusions. Commensurate bibasilar opacities. Coronary artery calcifications. Several foci of air within the soft tissues of the anterior left hemithorax (images 1-10, series 2). No acute abnormality of the liver, gallbladder or spleen. No acute abnormality the pancreas. No adrenal nodules. Cortical enhancement pattern. Renal cortical scarring at the right inferior pole. No hydronephrosis or hydroureter. Henry catheter within the bladder, resulting in decompression which limits evaluation. There are diffuse loops of dilated, fluid and air-filled small bowel throughout the abdomen and pelvi s. There is intraluminal fecalization distally. Colon is decompressed. No pneumatosis. The fluid throughout the peritoneum. No portal venous gas. No intraperitoneal free air. Atherosclerotic calcifications throughout the abdominal aorta and proximal branches. Right femoral vein central venous catheter. No acute osseous abnormality. Degenerative changes of the line, greatest at the lumbosacral junction . IMPRESSION: 1. Complete small bowel obstruction, as above. Diffuse ileus is considered less likely. Recommend surgical consultation. 2. Several foci of soft tissue air at the anterior left hemithorax. Recommend correlation with clin ical examination and recent procedural history. 3. Small bilateral, left greater right, pleural effusions with commensurate bibasilar opacities most compatible with atelectasis. Superimposed infection is not excluded on imaging criteria. 4. Additional chronic changes, as above. ELECTRONICALLY SIGNED BY: Marti Cisneros MD Mar 25, 2020 3:37:28 AM CDT FINAL REPORT EMERGENT AFTER HOURS CT ABDOMEN AND PELVIS WITH IV CONTRAST: HISTORY: Abdominal pain and nausea. Possible small bowel obstruction. COMPARISON: Noncontrast CT abdomen and pelvis on 03/18/2020. IMPRESSION: 1. Interval development of small right and [id number] size left pleural effusions with consoli dation at each lung base probably attributable to passive atelectasis. Pneumonia at the left lung base could not be entirely excluded. 2. Diffuse small bowel dilatation measuring up to 4.6 cm in diameter. Colon is decompressed. Exact po int of transition is not visualized; although, the more distal ileum is normal in caliber. Findings are worrisome for a small bowel obstruction. Ileus is a possibility but thought less likely. Surgical consultation is recommended. 3. Peripherally located small hypodense areas within the kidneys bilaterally which are thought to be related to areas of cortical scarring. Peripheral renal infarctions is a possibility but thought less likely. No perinephric stranding is identified. 4. Dense atherosclerotic vascular calcifications in the coronary arteries as well as involving the ab dominal aorta and iliac arteries. A right femoral vein hemodialysis catheter is noted in place with tip in the IVC. 5. Small amount of ascites. 6. Henry catheter in a decompressed urinary bladder. 7. Punctate foci of gas in the anterior lower chest wall of uncertain etiology. Clinical correlation suggested. 8. Findings are in agreement with preliminary report by [facility]. Transcribed Date/Time: 03/25/2020 8:39 AM
[2020-03-25] MEDS: Diclofenac 1% 100 GM GEL TP SCH ×4 (08:11→20:33)
[2020-03-25] MEDS: Ferrous Gluconate 324 MG TAB PO SCH (08:11)
[2020-03-25] MEDS: Insulin Glargine 10 UNITS in Pre-Filled Syringe 1 EACH SC SCH (08:11)
[2020-03-25] MEDS ORDERED: Bisacodyl 10 MG SUPP PR SCH (08:30)
--- NOTE | 2020-03-25 08:40 | PDOC.HOSPP ---
- Subjective Subjective: Overnight event noted. CT abd/pel reviewed. PLT improved. d/w Dr. Campa from cardiology pt was seen and examined. c/o abd discomfort. states he had a small BM 2 days. BG low 30s D/w surgery, Dr Dumas will see in consultation. Appreciate his recs - Objective Vital Signs & Weight: Vital Signs (12 hours) Temp Pulse Resp BP Pulse Ox 03/25/20 07:58 98.9 F 88 16 114/71 96 03/25/20 07:33 89 20 03/25/20 03:55 99.1 F 106 H 16 108/68 97 03/24/20 23:43 94 L Weight Admit Weight 135 lb 5.821 oz Weight 142 lb 3.2 oz Most Recent Monitor Data Heart Rate from ECG 106 NIBP 142/80 NIBP BP-Mean 100 Respiration from ECG 16 SpO2 98 I&O: 03/24/20 03/25/20 03/26/20 06:59 06:59 06:59 Intake Total 600 1660 Output Total 1000 705 Balance -400 955 Result Diagrams: 03/25/20 03:49 03/25/20 03:49 Additional Labs: Accuchecks 03/25/20 03/25/20 03/25/20 08:07 07:55 04:11 POC Glucose 171 H 38 L* 87 03/24/20 03/24/20 03/24/20 23:28 20:52 16:02 POC Glucose 114 H 137 H 177 H 03/24/20 11:54 POC Glucose 176 H Hospitalist ROS - Medication Medications: Active Medications Generic Name Dose Route Start Last Admin Trade Name Freq PRN Reason Stop Dose Admin Acetaminophen 650 mg 03/23/20 09:11 03/24/20 14:28 Tylenol PO 650 mg Q6H PRN Administration Mild-Moderate Pain (1-5) Al Hydroxide/Mg Hydroxide 30 ml 03/18/20 22:45 03/24/20 17:36 Maalox PO 30 ml Q8H PRN Administration Indigestion Albuterol/Ipratropium 3 ml 03/19/20 13:00 03/25/20 07:33 Duoneb NEB 3 ml [id number] MIMI Administration Dextrose/Water 25 gm 03/22/20 00:24 03/25/20 07:52 Dextrose 50% SLOW IVP 25 gm PRN PRN Administration Hypoglycemia Diclofenac Sodium 0 gm 03/24/20 17:00 03/25/20 08:11 Voltaren TP Not Given QID [facility] Docusate Sodium 100 mg 03/24/20 21:00 03/24/20 21:22 Colace PO 100 mg HS MIMI Administration Ferrous Gluconate 324 mg 03/25/20 08:00 03/25/20 08:11 Fergon PO Not Given QAM-WM MIMI Insulin Human Regular 100 101 mls @ 0 mls/hr 03/18/20 22:45 03/19/20 08:00 units/ Sodium Chloride IVPB 101 mls INF MIMI Administration Protocol Titrate Insulin Glargine 10 units/ 0.1 mls @ 0 mls/hr 03/19/20 21:00 03/25/20 08:11 Miscellaneous Medication SC Not Given BID MIMI Promethazine HCl 25 mg/ Sodium 51 mls @ 204 mls/hr 03/23/20 23:58 03/24/20 00 :31 Chloride IVPB 51 mls Q6H PRN Administration Nausea/Vomiting Sodium Chloride 1,000 mls @ 75 mls/hr 03/25/20 04:15 03/25/20 04:46 Normal Saline 0.9% IV 1,000 mls .[id number] MIMI Administration Magnesium Sulfate 2 gm/ Device 50 mls @ 100 mls/hr 03/25/20 06:30 03/25/20 06 :41 IVPB 03/25/20 10:00 50 mls NOW MIMI Administration Insulin Human Lispro 0 units 03/20/20 16:37 03/22/20 18:09 Humalog SC 2 unit .MILD SLIDING SCALE PRN Administration Mild Correctional Scale Insulin Human Lispro 0 units 03/22/20 00:24 03/22/20 00:36 Humalog SC 3 unit .BEDTIME SLIDING SC PRN Administration Bedtime Correctional Scale Lidocaine 1 patch 03/24/20 18:00 03/24/20 17:38 Lidoderm 5% Patch TD 1 patch 1800 MIMI Administration Miscellaneous Medication 1 each 03/25/20 06:00 03/25/20 07:15 Lidocaine Patch Removal TOP Not Given 0600 [facility] Ondansetron HCl 4 mg 03/18/20 22:44 03/23/20 21:45 Zofran IVP 4 mg Q6H PRN Administration Nausea/Vomiting use 1st Sodium Chloride 10 ml 03/19/20 09:00 03/25/20 08:12 Flush - Normal Saline IVF Not Given Q12HR MIMI Tamsulosin HCl 0.4 mg 03/22/20 21:00 03/24/20 21:22 Flomax PO 0.4 mg HS MIMI Administration Hosp A/P - Plan Physical Exam: General - other findings: intubated Eye: PERRL, anicteric sclera ENT: normocephalic atraumatic, no oropharyngeal lesions, moist mucosa Neck: supple, symmetric, no JVD, no thyromegaly, no lymphadenopathy, no carotid bruit Heart: RRR, no murmur, no gallops, no rubs, normal peripheral pulses Respiratory: CTAB, no wheezes, no rales, no ronchi, normal chest expansion, no tachypnea, normal percussion Gastrointestinal: distended, No bowel sound, slightly tender to palpation. No guarding or rebound Extremities: no cyanosis, no clubbing, no edema Skin: normal turgor, no lesions, no rashes Neurological - other findings: intubated, sedated, rass -2 Musculoskeletal: normal tone, normal strength, no muscle wasting Psychiatric - other findings: unable to evaluate Assessments/Plan: #Abd pain - secondary to SBO #Hypoglycemia #Thrombocytopenia, acute, severe - unclear etiology. Suspect related to chronic meth use, recent cardiac arrest, or ?infection. #Pre-hospital Cardiac Arrest w/ ROSC - likely secondary due to severe acidosis, not a primary cardiac. Nuclear stress test was neg for reversible ischemia. #Acute Hypoxic Hypercapenic Respiratory Failure - s/p extubate on 03/20 #DKA - resolved. #NSTEMI - possible d/t demand ischemia #Severe Metabolic Acidosis - resolved #FARHEEN - resolved #Hyperkalemia - resolved with dialysis x 1 session, renal signed off #Bradycardia -resolved #Substance Abuse - UDS positive meth #Acute metabolic Encephalopathy - mental status returned to baseline #Urinary retention - Henry placed by urology #DM2 - uncontrolled. A1C>12 03/25/20 Pt developed abd pain overnight, CT abd/pel revealed SBO. Will place NGT, NPO, bowel rest. Dulcolax sup. Start IV PPI and IV Reglan for nausea. Surgery consult. D/w Dr. Dumas, oncall surgeon Adjust IVF to correct hypoglycemia. Hold insulin. rpt labs and imaging in AM. PLT improved. Avoid NSAIDs. Follow daily CBC d/w Cardiology no further workup from cardiac standpoint d/w CM - likely will try to get him to inpt Rehab at [place] when medically for discharge. 03/24/2020 His platelets are stable. Patient underwent nuclear stress test, which was negative for reversible ischemia. Apparently patient had CABG done at [facility]. His unresponsive episode was unlikely due to cardiac as primary. Likely secondary to metabolic acidosis in setting of DKA, and methamphetamine abuse. His CRP is slightly elevated. Chest x-ray did not show any evidence of infiltrate. Appreciate input from hematology. No role for platelet transfusion at this time. Continue monitor CBC. Patient will likely need placement upon discharge. 03/23/20 His PLT cont to trend down, 24K today. no evidence of bleeding. Unclear etiology , ? chronic meth use, occult infection, recent cardiac arrest? check CXR 2 V. Check Peripheral blood smear, LDH, iron panel, Vit B12/Folate, fibrinogen. Antiplatelet therapy, and anticoagulant are on hold. IV abx was discontinued yesterday. Pt does not appear to be septic. Consult Hematology for further recommendation. NO role for PLT transfusion unless <10K or evidence of bleeding. d/w Dr. Campa, he is considering nuclear stress test prior to discharge. Appreciate his input. add Pyridium for bladder spasm. 03/22/20 mental status returned to baseline. Plt trending down, no evidence of bleeding. Renal function much improved. PT eval. Start Flomax, will keep the Henry in for now; given hx of urinary retention, and low plt, will try to avoid the risk to put in back in. Monitor daily CBC 03/21/20 Pt is doing better. Cr improved. Mental status improved with intermittent confusion. Transfer to tele. CM/Palliative cares consult. cont supportive cares for now pending mental status 03/20/20 pt is s/p extubation, and weaned off vasopressors. Currently hemodynamically stable. Arousable. Concerning for possible anoxic brain injury from cardiac arrest, awaiting for neurologic recovery. Updated patient's . cont supportive cares. Add insulin sliding scale. Follow Echo. Appreciate specialists' input. 03/19/20 Patient remains critically ill, requiring mechanical ventilatory support with multiple vasopressors. Continue supportive cares including empiric IV abx, wean pressors as surya to keep MAP>65 Attempted to call family but no response. Appreciate specialists' input. Check Echo. Cont to wean insulin gtt. Monitor serial labs. Prognosis poor. Palliative care consult to address goal of cares.
[2020-03-25] MEDS ORDERED: Metoclopramide HCl 10 MG/2 ML VIAL IVP PRN (08:49)
[2020-03-25] MEDS ORDERED: Aspirin 300 MG Suppository PR SCH (09:00)
[2020-03-25] MEDS ORDERED: Magnesium Sulfate 4 GM in Sodium Chloride 0.9% 250 ML 250 ML IVPB SCH (09:00)
[2020-03-25] MEDS ORDERED: Lidocaine 5% Patch TD SCH (09:00)
--- NOTE | 2020-03-25 09:11 | PRG ---
DATE OF SERVICE: 03/25/2020 SUBJECTIVE: Mr. Peres is complaining of abdominal pain and vomiting today. He had a CT scan and abdominal x-ray small bowel dilatation suspicious for small bowel obstruction. Stress testing revealed fixed defect, but no ischemia. He was hypoglycemic this morning. PLAN: He received D50W this morning. Should be on aspirin when he is able to tolerate it. No further recommendations. Dr. Morales will be available this weekend if needed. ADDENDUM: I reviewed the laboratory. The patient still has severe low platelet counts of 29,000. We will have to hold aspirin at this time. Job ID: [id number]
--- NOTE | 2020-03-25 10:00 | RAD ---
Exam: 2 views abdomen HISTORY: Follow-up small bowel obstruction COMPARISON: One view abdomen 03/24/[address] 03/25/2020 FINDINGS: Persistent marked distention of multiple air-filled small bowel loops. Paucity of gas in th e colon. There is evidence of a high-grade small bowel obstruction. No evidence of pneumoperitoneum on the decubitus film. Stable vascular catheter. Interval placement of a nasogastric tube, terminating in the expected regio n of the stomach. IMPRESSION: Interval placement of nasogastric tube. Persistent high-grade small bowel obstruction. Co nsider general surgical consultation. CODE T
[2020-03-25] MEDS: Pantoprazole 40 MG VIAL IVP SCH ×2 (10:02→20:33)
[2020-03-25] MEDS: Dextrose 5 % And 0.9 % NaCl 1,000 ML IV SCH (10:05)
[2020-03-25] MEDS ORDERED: Iopamidol-370 76% 500 ML 1 ML ONE (11:23)
[2020-03-25 14:24] VITALS: BMI 19.2
--- NOTE | 2020-03-25 16:01 | PDOC.CONS ---
- Consultation Encounter Date: 03/25/20 Encounter Time: 15:58 CHIEF COMPLAINT: Consult for small bowel obstruction HISTORY OF PRESENT ILLNESS: 4-year-old male found down by EMS and transported to [facility] with bradycardia and hypothermia. He required CPR by EMS on admission and had return of spontaneous circulation. He was admitted to the emergency department on epinephrine drip severely acidotic at 6.7, hyperkalemic at 6.8, and profound hyperglycemia. His toxicology screen was positive for methamphetamines. The patient is a an extremely poor historian and nothing is known of his past medical history. REVIEW OF SYSTEMS: Unable to obtain at time of interview PAST MEDICAL HISTORY: Substance abuse Cardiac disease Diabetes mellitus PAST SURGICAL HISTORY: Denies FAMILY HISTORY: Reviewed and noncontributory SOCIAL HISTORY Current smoker, marijuana and amphetamines, endorses occasional alcohol consumption. ALLERGIES: No drug allergies PHYSICAL EXAM: Vital Signs: HR 106 BP 108/61 T 99.1 RR 16 SpO2 [ ] General: Alert and oriented, no acute distress; appears cachetic and chronically ill ENT: Sclera anicteric, pupils equal and reactive, mucous membranes moist Neck: No jugular venous distention, trachea midline Cardiovascular: Regular rate and rhythm. left subclavian CVC in place; right femoral dailysis cathter in place Pulmonary: Clear to auscultation Abdominal: Soft, distended, nontender. No hernias appreciated Genitourinary: Normal anatomy; de guzman catheter in place Rectal: Deferred Integument: No abnormal rashes or lesions; scattered actinic keratosis Musculoskeletal: No gross deformities or edema, normal range of motion LABORATORY: Laboratory analysis reviewed and demonstrates white blood cell count of 8.6, hemoglobin of 9.1, profound thrombocytopenia at 29. IMAGING: KUB reviewed and demonstrates gross dilation of the small bowel consistent with ileus versus small bowel obstruction. Computed tomography abdomen reviewed as well as radiology interpretation. Demonstrates diffuse dilation of the small bowel with no transition point. Small amount of gas in the colon and rectum. ASSESSMENT: 64-year-old male with abdominal distention, likely due to ileus. PLAN: Conservative management with nasogastric tube decompression and n.p.o. Ambulate 3 times daily and minimize narcotics. Will consider upper GI with small bowel follow-through if no improvement over 72 hours.
[2020-03-25] MEDS: Lidocaine 5% Patch TD SCH (17:14)
[2020-03-25] MEDS: Docusate 100 MG CAP PO SCH (22:59)
[2020-03-25] MEDS: Tamsulosin HCl 0.4 MG CAP PO SCH (23:00)
[2020-03-26 04:46] LABS: Prothrombin Time 13.6 sec (12.0-14.7)
[2020-03-26 04:54] LABS: #Lymphocytes 0.5 thou/uL (1.20-3.40); #Monocytes 0.4 thou/uL (0.11-0.59); #Neutrophils 7.5 thou/uL (1.40-6.50); %Eosinophils 0.5 % (0.0-10.0); %Lymphocytes 5.7 % (21.0-51.0); %Monocytes 5.3 % (0.0-10.0); %Neutrophils 88.5 % (42.0-75.0); Hemoglobin 8.7 g/dL (14.0-18.0); Mean Corpuscular HGB CONC 31.5 g/dL (32.0-36.0); Mean Corpuscular Hemoglobin 28.1 pg (27.0-31.0); Mean Corpuscular Volume 89.3 fL (78.0-98.0); Mean Platelet Volume 9.4 fL (7.4-10.4); Platelet Count 31 thou/uL (130-400); RBC Distribution Width 13.5 % (11.5-14.5); Red Blood Cell (RBC) Count 3.08 mill/uL (4.70-6.10); White Blood Cell (WBC) Count 8.5 thou/uL (4.8-10.8)
[2020-03-26] MEDS: Dextrose 5 % And 0.9 % NaCl 1,000 ML IV SCH ×3 (04:59→20:53)
[2020-03-26 05:11] LABS: Anion Gap 15 mmol/L (10-20); BUN (Urea Nitrogen) 17 mg/dL (8.4-25.7); Calc. Creatinine Clearance 77 mL/min (70-130); Carbon Dioxide 24 mmol/L (23-31); Chloride 102 mmol/L (98-107); Estimated GFR-MDRD 87; Glucose 192 mg/dL (80-115); Magnesium 2.3 mg/dL (1.6-2.6); Potassium 3.7 mmol/L (3.5-5.1); Sodium 137 mmol/L (136-145)
[2020-03-26] MEDS: Lidocaine Patch Removal 1 EACH TOP SCH (05:36)
[2020-03-26] MEDS ORDERED: Aspirin 81 mg Enteric Coated Tablet PO SCH (09:00)
[2020-03-26] MEDS: Pantoprazole 40 MG VIAL IVP SCH ×2 (09:03→20:47)
[2020-03-26] MEDS: Diclofenac 1% 100 GM GEL TP SCH ×4 (09:14→21:46)
--- NOTE | 2020-03-26 09:47 | RAD ---
ABDOMEN 1 VIEW: HISTORY: Abdominal distention and small bowel obstruction. COMPARISON: Radiograph 2 days prior. FINDINGS: Marked distention of the small bowel. Right femoral catheter is in place with the tip projecting ove r the L2 inferior end plate. No definite free air is appreciated, although this evaluation is limite d given lack of upright views. IMPRESSION: Findings of relative high-grade small bowel obstruction. POS: HOME
[2020-03-26] MEDS: HumaLOG 300 UNITS/3 ML VIAL SC PRN ×2 (10:08→20:54)
[2020-03-26] MEDS: Ferrous Gluconate 324 MG TAB PO SCH (10:08)
--- NOTE | 2020-03-26 11:50 | PDOC.HOSPP ---
- Subjective Encounter Date: 03/26/20 Encounter Time: 11:54 Subjective: Seen for follow-up for bowel obstruction. He has pulled his NG tube out. He does not want NG tube at this time. He reports having 2 bowel movements overnight. - Objective Vital Signs & Weight: Vital Signs (12 hours) Temp Pulse Resp BP Pulse Ox 03/26/20 11:36 97.6 F 102 H 20 114/73 94 L 03/26/20 07:15 97.9 F 105 H 20 134/74 92 L 03/26/20 03:56 98.5 F 101 H 18 109/67 94 L Weight Admit Weight 135 lb 5.821 oz Weight 141 lb 4.8 oz Most Recent Monitor Data Heart Rate from ECG 106 NIBP 142/80 NIBP BP-Mean 100 Respiration from ECG 16 SpO2 98 I&O: 03/25/20 03/26/20 03/27/20 06:59 06:59 06:59 Intake Total 1660 900 Output Total 705 2325 Balance 955 -1425 Result Diagrams: 03/26/20 04:09 03/26/20 04:09 Additional Labs: Accuchecks 03/26/20 03/26/20 03/25/20 09:57 04:08 23:42 POC Glucose 262 H 235 H 153 H 03/25/20 03/25/20 20:18 16:52 POC Glucose 156 H 132 H I reviewed labs and MAR EKG Reviewed by me: Yes (Symmetry: Normal sinus rhythm) Hospitalist ROS - Review of Systems Gastrointestinal: denies: nausea, vomiting, abdominal pain, diarrhea, constipation, melena, hematochezia Genitourinary: denies: dysuria, frequency, incontinence, hematuria, retention - Medication Medications: Active Medications Generic Name Dose Route Start Last Admin Trade Name Freq PRN Reason Stop Dose Admin Acetaminophen 650 mg 03/23/20 09:11 03/24/20 14:28 Tylenol PO 650 mg Q6H PRN Administration Mild-Moderate Pain (1-5) Al Hydroxide/Mg Hydroxide 30 ml 03/18/20 22:45 03/24/20 17:36 Maalox PO 30 ml Q8H PRN Administration Indigestion Albuterol/Ipratropium 3 ml 03/19/20 13:00 03/26/20 07:48 Duoneb NEB Not Given [id number] MIMI Dextrose/Water 25 gm 03/22/20 00:24 03/25/20 07:52 Dextrose 50% SLOW IVP 25 gm PRN PRN Administration Hypoglycemia Diclofenac Sodium 0 gm 03/24/20 17:00 03/26/20 09:14 Voltaren TP 1 applic QID MIMI Administration Docusate Sodium 100 mg 03/24/20 21:00 03/25/20 22:59 Colace PO Not Given HS [facility] Ferrous Gluconate 324 mg 03/25/20 08:00 03/26/20 10:08 Fergon PO Not Given QAM-WM MIMI Dextrose/Sodium Chloride 1,000 mls @ 75 mls/hr 03/25/20 09:00 03/26/20 04:59 D5 0.9% Ns IV 1,000 mls .[id number] MIMI Administration Insulin Human Lispro 0 units 03/20/20 16:37 03/26/20 10:08 Humalog SC 4 unit .MILD SLIDING SCALE PRN Administration Mild Correctional Scale Insulin Human Lispro 0 units 03/22/20 00:24 03/22/20 00:36 Humalog SC 3 unit .BEDTIME SLIDING SC PRN Administration Bedtime Correctional Scale Lidocaine 1 patch 03/24/20 18:00 03/25/20 17:14 Lidoderm 5% Patch TD 1 patch 1800 MIMI Administration Miscellaneous Medication 1 each 03/25/20 06:00 03/26/20 05:36 Lidocaine Patch Removal TOP 1 each 0600 MIMI Administration Ondansetron HCl 4 mg 03/18/20 22:44 03/23/20 21:45 Zofran IVP 4 mg Q6H PRN Administration Nausea/Vomiting use 1st Pantoprazole Sodium 40 mg 03/25/20 09:00 03/26/20 09:03 Protonix IVP 40 mg Q12HR MIMI Administration Sodium Chloride 10 ml 03/19/20 09:00 03/26/20 10:08 Flush - Normal Saline IVF 10 ml Q12HR MIMI Administration Tamsulosin HCl 0.4 mg 03/22/20 21:00 03/25/20 23:00 Flomax PO Not Given HS MIMI - Exam General Appearance: awake alert Eye: anicteric sclera ENT: moist mucosa Neck: supple Heart: RRR Respiratory: CTAB Gastrointestinal: soft, non-tender, diminished bowl sounds Skin: normal turgor Musculoskeletal: normal tone Psychiatric: normal affect, normal behavior, A&O x 3 Hosp A/P - Plan #SBO #Hypoglycemia #Thrombocytopenia, acute, severe - unclear etiology. To follow-up as outpatient. #Pre-hospital Cardiac Arrest w/ ROSC #Acute Hypoxic Hypercapenic Respiratory Failure - s/p extubate on 03/20 #DKA - resolved. #NSTEMI - possible d/t demand ischemia #Severe Metabolic Acidosis - resolved #FARHEEN - resolved #Hyperkalemia - resolved with dialysis x 1 session, renal signed off #Bradycardia -resolved #Substance Abuse - UDS positive meth #Acute metabolic Encephalopathy - mental status returned to baseline #Urinary retention - Henry placed by urology #DM2 - uncontrolled. A1C>12 March 26, 2020: Repeat abdominal films show ongoing bowel obstruction. We will continue to monitor. General surgery service is following. Patient to stay n.p.o., continue IV fluids, will revisit the issue of NG tube to suction. Cardiac arrest most likely secondary to severe acidosis, stress test was normal. Extubated on March 20, 2020. Patient will need inpatient rehab at the time of discharge. 03/25/20 Pt developed abd pain overnight, CT abd/pel revealed SBO. Will place NGT, NPO, bowel rest. Dulcolax sup. Start IV PPI and IV Reglan for nausea. Surgery consult. D/w Dr. Dumas, oncall surgeon Adjust IVF to correct hypoglycemia. Hold insulin. rpt labs and imaging in AM. PLT improved. Avoid NSAIDs. Follow daily CBC d/w Cardiology no further workup from cardiac standpoint d/w CM - likely will try to get him to inpt Rehab at [place] when medically for discharge. 03/24/2020 His platelets are stable. Patient underwent nuclear stress test, which was negative for reversible ischemia. Apparently patient had CABG done at [facility]. His unresponsive episode was unlikely due to cardiac as primary. Likely secondary to metabolic acidosis in setting of DKA, and methamphetamine abuse. His CRP is slightly elevated. Chest x-ray did not show any evidence of infiltrate. Appreciate input from hematology. No role for platelet transfusion at this time. Continue monitor CBC. Patient will likely need placement upon discharge. 03/23/20 His PLT cont to trend down, 24K today. no evidence of bleeding. Unclear etiology , ? chronic meth use, occult infection, recent cardiac arrest? check CXR 2 V. Check Peripheral blood smear, LDH, iron panel, Vit B12/Folate, fibrinogen. Antiplatelet therapy, and anticoagulant are on hold. IV abx was discontinued yesterday. Pt does not appear to be septic. Consult Hematology for further recommendation. NO role for PLT transfusion unless <10K or evidence of bleeding. d/w Dr. Campa, he is considering nuclear stress test prior to discharge. Appreciate his input. add Pyridium for bladder spasm. 03/22/20 mental status returned to baseline. Plt trending down, no evidence of bleeding. Renal function much improved. PT eval. Start Flomax, will keep the Henry in for now; given hx of urinary retention, and low plt, will try to avoid the risk to put in back in. Monitor daily CBC 03/21/20 Pt is doing better. Cr improved. Mental status improved with intermittent confusion. Transfer to tele. CM/Palliative cares consult. cont supportive cares for now pending mental status 03/20/20 pt is s/p extubation, and weaned off vasopressors. Currently hemodynamically stable. Arousable. Concerning for possible anoxic brain injury from cardiac arrest, awaiting for neurologic recovery. Updated patient's . cont supportive cares. Add insulin sliding scale. Follow Echo. Appreciate specialists' input. 03/19/20 Patient remains critically ill, requiring mechanical ventilatory support with multiple vasopressors. Continue supportive cares including empiric IV abx, wean pressors as surya to keep MAP>65 Attempted to call family but no response. Appreciate specialists' input. Check Echo. Cont to wean insulin gtt. Monitor serial labs. Prognosis poor. Palliative care consult to address goal of cares.
--- NOTE | 2020-03-26 16:20 | PDOC.BPN ---
- Brief Progress Note Encounter Date: 03/26/20 Encounter Time: 10:20 Doing well. Reports significant improvement in abdominal distention. Also reports 2 large bowel movements. Denies nausea or vomiting. Evidently, he self discontinued his nasogastric tube. EXAM: VS: T 98.5 HR 101 BP 109/67 RR 18 SpO2 [ ] General: Alert and oriented, no acute distress, resting comfortably Pulmonary: No dyspnea or difficulty breathing Abdomen: Soft, non-distended, nontender CV: Regular rate and rhythm, palpable distal pulses Extremities: No edema I/O: [ ] oral intake 1050 UOP LABORATORY / IMAGING: Laboratory analysis reviewed and is stable to include thrombocytopenia at 31. PLAN: 64-year-old male with likely ileus, now resolved. Recommend clear liquid diet and advancement as tolerated Daily bowel regimen We will follow peripherally. Please call for any further questions.
[2020-03-26] MEDS: Lidocaine 5% Patch TD SCH (17:18)
[2020-03-26] MEDS: Tamsulosin HCl 0.4 MG CAP PO SCH (20:47)
[2020-03-26] MEDS: traMADol HCl 50 MG TAB PO PRN (20:50)
[2020-03-26] MEDS: Docusate 100 MG CAP PO SCH (21:46)
[2020-03-27] MEDS: HumaLOG 300 UNITS/3 ML VIAL SC PRN ×3 (01:08→13:37)
[2020-03-27 04:19] LABS: #Lymphocytes 0.5 thou/uL (1.20-3.40); #Monocytes 0.4 thou/uL (0.11-0.59); %Basophils 0.4 % (0.0-1.0); %Eosinophils 0.2 % (0.0-10.0); %Lymphocytes 5.5 % (21.0-51.0); %Monocytes 4.6 % (0.0-10.0); %Neutrophils 89.4 % (42.0-75.0); Hemoglobin 8.2 g/dL (14.0-18.0); Mean Corpuscular HGB CONC 31.2 g/dL (32.0-36.0); Mean Corpuscular Hemoglobin 28.3 pg (27.0-31.0); Mean Corpuscular Volume 90.7 fL (78.0-98.0); Mean Platelet Volume 9.8 fL (7.4-10.4); Platelet Count 45 thou/uL (130-400); RBC Distribution Width 13.7 % (11.5-14.5); Red Blood Cell (RBC) Count 2.89 mill/uL (4.70-6.10); White Blood Cell (WBC) Count 8.9 thou/uL (4.8-10.8)
[2020-03-27 04:39] LABS: Anion Gap 14 mmol/L (10-20); BUN (Urea Nitrogen) 17 mg/dL (8.4-25.7); Calc. Creatinine Clearance 84 mL/min (70-130); Calcium 7.6 mg/dL (7.8-10.44); Carbon Dioxide 20 mmol/L (23-31); Chloride 104 mmol/L (98-107); Estimated GFR-MDRD Greater than 90; Glucose 199 mg/dL (80-115); Potassium 3.9 mmol/L (3.5-5.1); Sodium 134 mmol/L (136-145)
[2020-03-27] MEDS: Lidocaine Patch Removal 1 EACH TOP SCH (05:56)
[2020-03-27] MEDS: Ferrous Gluconate 324 MG TAB PO SCH (09:39)
[2020-03-27] MEDS: Pantoprazole 40 MG VIAL IVP SCH (09:39)
[2020-03-27] MEDS: Dextrose 5 % And 0.9 % NaCl 1,000 ML IV SCH (09:40)
[2020-03-27] MEDS: Diclofenac 1% 100 GM GEL TP SCH ×3 (09:40→16:25)
[2020-03-27] MEDS: traMADol HCl 50 MG TAB PO PRN ×2 (09:46→16:23)
--- NOTE | 2020-03-27 14:01 | PDOC.HOSPP ---
- Subjective Encounter Date: 03/27/20 Encounter Time: 13:58 Subjective: Pt seen for followup re: ileus. Feels better. Had BM. - Objective Vital Signs & Weight: Vital Signs (12 hours) Temp Pulse Resp BP Pulse Ox 03/27/20 13:22 100 20 03/27/20 12:00 98.3 F 101 H 18 95/65 95 03/27/20 08:00 98.3 F 97 18 112/62 96 03/27/20 07:31 102 H 18 03/27/20 03:22 98.1 F 98 18 107/68 93 L Weight Admit Weight 135 lb 5.821 oz Weight 142 lb Most Recent Monitor Data Heart Rate from ECG 106 NIBP 142/80 NIBP BP-Mean 100 Respiration from ECG 16 SpO2 98 I&O: 03/26/20 03/27/20 03/28/20 06:59 06:59 06:59 Intake Total 900 2120 Output Total 2325 900 Balance -1425 1220 Result Diagrams: 03/27/20 03:37 03/27/20 03:37 Additional Labs: Accuchecks 03/27/20 03/27/20 03/27/20 12:41 08:06 04:51 POC Glucose 378 H 209 H 237 H 03/27/20 03/26/20 03/26/20 00:46 20:58 16:50 POC Glucose 215 H 278 H 195 H Labs and MAR reviewed by me EKG Reviewed by me: Yes (Tele: NSR) Hospitalist ROS - Review of Systems Cardiovascular: denies: chest pain, palpitations, orthopnea, paroxysmal noc. dyspnea, edema, light headedness Gastrointestinal: denies: nausea, vomiting, abdominal pain, diarrhea, constipation, melena, hematochezia - Medication Medications: Active Medications Generic Name Dose Route Start Last Admin Trade Name Freq PRN Reason Stop Dose Admin Acetaminophen 650 mg 03/23/20 09:11 03/24/20 14:28 Tylenol PO 650 mg Q6H PRN Administration Mild-Moderate Pain (1-5) Al Hydroxide/Mg Hydroxide 30 ml 03/18/20 22:45 03/24/20 17:36 Maalox PO 30 ml Q8H PRN Administration Indigestion Albuterol/Ipratropium 3 ml 03/19/20 13:00 03/27/20 13:22 Duoneb NEB 3 ml [id number] MIMI Administration Dextrose/Water 25 gm 03/22/20 00:24 03/25/20 07:52 Dextrose 50% SLOW IVP 25 gm PRN PRN Administration Hypoglycemia Diclofenac Sodium 0 gm 03/24/20 17:00 03/27/20 13:30 Voltaren TP Not Given QID MIMI Docusate Sodium 100 mg 03/24/20 21:00 03/26/20 21:46 Colace PO Not Given HS [facility] Ferrous Gluconate 324 mg 03/25/20 08:00 03/27/20 09:39 Fergon PO 324 mg QAM-WM MIMI Administration Dextrose/Sodium Chloride 1,000 mls @ 75 mls/hr 03/25/20 09:00 03/27/20 09:40 D5 0.9% Ns IV 1,000 mls .[id number] MIMI Administration Insulin Human Lispro 0 units 03/20/20 16:37 03/27/20 13:37 Humalog SC 6 unit .MILD SLIDING SCALE PRN Administration Mild Correctional Scale Insulin Human Lispro 0 units 03/22/20 00:24 03/27/20 04:56 Humalog SC 3 unit .BEDTIME SLIDING SC PRN Administration Bedtime Correctional Scale Lidocaine 1 patch 03/24/20 18:00 03/26/20 17:18 Lidoderm 5% Patch TD Not Given 1800 [facility] Miscellaneous Medication 1 each 03/25/20 06:00 03/27/20 05:56 Lidocaine Patch Removal TOP Not Given 0600 [facility] Ondansetron HCl 4 mg 03/18/20 22:44 03/23/20 21:45 Zofran IVP 4 mg Q6H PRN Administration Nausea/Vomiting use 1st Pantoprazole Sodium 40 mg 03/25/20 09:00 03/27/20 09:39 Protonix IVP 40 mg Q12HR MIMI Administration Sodium Chloride 10 ml 03/19/20 09:00 03/27/20 09:40 Flush - Normal Saline IVF Not Given Q12HR [facility] Tamsulosin HCl 0.4 mg 03/22/20 21:00 03/26/20 20:47 Flomax PO 0.4 mg HS MIMI Administration Tramadol HCl 50 mg 03/24/20 15:41 03/27/20 09:46 Ultram PO 50 mg Q6H PRN Administration Pain - Exam General Appearance: awake alert Eye: anicteric sclera ENT: moist mucosa Neck: supple Heart: RRR Respiratory: CTAB Gastrointestinal: soft, non-tender, normal bowel sounds Extremities: no edema Skin: no rashes Psychiatric: normal affect, normal behavior Hosp A/P - Plan #Ileus #Hypoglycemia #Thrombocytopenia, acute, severe - unclear etiology. To follow-up as outpatient. #Pre-hospital Cardiac Arrest w/ ROSC #Acute Hypoxic Hypercapenic Respiratory Failure - s/p extubate on 03/20 #DKA - resolved. #NSTEMI - possible d/t demand ischemia #Severe Metabolic Acidosis - resolved #FARHEEN - resolved #Hyperkalemia - resolved with dialysis x 1 session, renal signed off #Bradycardia -resolved #Substance Abuse - UDS positive meth #Acute metabolic Encephalopathy - mental status returned to baseline #Urinary retention - Henry placed by urology #DM2 - uncontrolled. A1C>12 March 26, 2020: Ileus has clinically resolved. Advance diet as yolerated. Will likely need Inpt Rehab. DKA resolved.
[2020-03-27 17:01] VITALS: BP 126/74; TEMP 98.4
--- NOTE | 2020-03-28 09:38 | DIS ---
DATE OF ADMISSION: 03/18/2020 DATE OF DISCHARGE: 03/27/2020 PRIMARY CARE PROVIDER: [facility] [place]. The patient left against medical advice on March 28, 2020. DISCHARGE DIAGNOSES: 1. Cardiac arrest. 2. Acute hypoxic respiratory failure. 3. Hyperkalemia. 4. Metabolic acidosis. 5. Diabetic ketoacidosis. 6. [id number] myocardial infarction type 2. 7. Ileus. 8. Urine drug screen positive for amphetamines, methamphetamines and cannabinoids. 9. Thrombocytopenia. 10. Urinary retention. CONSULTATIONS DURING THIS HOSPITALIZATION: 1. Cardiology, Dr. Cardona. 2. Nephrology, Dr. rUrutia. 3. Oncology, [place]. 4. General Surgery, Dr. Dumas. 5. Pulmonary and Critical Care Medicine, Dr. Ray. 6. Urology, Dr. Cruz. HOSPITAL COURSE: Mr. Peres is a pleasant 64-year-old gentleman, who was admitted to [facility] on March 18, 2020, for cardiac arrest outside the hospital, with return of spontaneous circulation. He was intubated and on epinephrine drip. He was also in metabolic acidosis and diabetic ketoacidosis. He was treated with intravenous insulin and intravenous fluids. He was seen by Nephrology and Pulmonary Critical Care Medicine Services. Attempts to place a Henry catheter were unsuccessful, Urology Service was consulted for Henry catheter placement. He was also seen by Cardiology Service for [id number] myocardial infarction type 2. A 2-D echocardiogram showed normal left ventricular size, normal left ventricular wall thickness, left ventricular ejection fraction of 50%-55%, grade 1/3 diastolic dysfunction, apical septal akinesis, hypokinetic anterior apex and anterior septal hypokinesis. He was weaned off the pressors. He was also extubated. He was subsequently transferred to the telemetry floor. He had a nuclear stress test, which did not show any evidence of reversible ischemia. He had global hypokinesis. Left ventricular ejection fraction was 41%. On March 24, 2020, he had a CT scan of abdomen and pelvis, which was suggestive of complete small-bowel obstruction versus diffuse ileus. Surgery Service was consulted. He was managed conservatively with improvement in his symptoms. On March 27, 2020, the patient decided to leave against medical advice. Many thanks for allowing me to participate in your patient's care. Please feel free to contact me with any questions or concerns. Job ID: [id number]
== END 2020-03-27 19:14 | disposition left against medical advice (07) | DRG 871 ==
LOC: ERS 19:43 → CCU 22:17 → 2NO 22:25
PROVIDERS: ADMIT Internal Medicine; ATTEND Internal Medicine
PROC: 0BH17EZ Insertion of Endotracheal Airway into Trachea, Via Natural or Artificial Opening (ICD-10-PCS; principal; 2020-03-18)
PROC: 5A1945Z Respiratory Ventilation, 24-96 Consecutive Hours (ICD-10-PCS; 2020-03-18)
DX: A41.9 Sepsis, unspecified organism (principal); J96.01 Acute respiratory failure with hypoxia; I21.A1 Myocardial infarction type 2; E11.10 Type 2 diabetes mellitus with ketoacidosis without coma; G93.41 Metabolic encephalopathy; E87.1 Hypo-osmolality and hyponatremia; N17.9 Acute kidney failure, unspecified; G93.1 Anoxic brain damage, not elsewhere classified; E44.0 Moderate protein-calorie malnutrition; Z68.1 Body mass index [BMI] 19.9 or less, adult; K56.7 Ileus, unspecified; E87.5 Hyperkalemia; E11.65 Type 2 diabetes mellitus with hyperglycemia; I25.10 Atherosclerotic heart disease of native coronary artery without angina pectoris; E78.5 Hyperlipidemia, unspecified; J44.9 Chronic obstructive pulmonary disease, unspecified; Z72.0 Tobacco use; R00.1 Bradycardia, unspecified; N18.3 Chronic kidney disease, stage 3 (moderate); D63.8 Anemia in other chronic diseases classified elsewhere; F41.8 Other specified anxiety disorders; E11.22 Type 2 diabetes mellitus with diabetic chronic kidney disease; F19.10 Other psychoactive substance abuse, uncomplicated; D69.6 Thrombocytopenia, unspecified; I12.9 Hypertensive chronic kidney disease with stage 1 through stage 4 chronic kidney disease, or unspecified chronic kidney disease
CPT/HCPCS: 36415; 36416; 36556; 70450; 71045; 71046; 71250; 74018; 74019; 74177; 78452; 80048; 80053; 80074; 80076; 80202; 80306; 81001; 82010; 82140; 82533; 82553; 82607; 82728; 82746; 82805; 83036; 83540; 83550; 83605; 83615; 83690; 83735; 84100; 84443; 84484; 85025; 85060; 85384; 85610; 85652; 86140; 87040; 87635; 90935; 93005; 93017; 93306; 94003; 94640; 96361; 96365; 96366; 96368; 96375; 96376; 99292; A9500; C9113; G0257; J0171; J0461; J1644; J1815; J2060; J2405; J2543; J2550; J2785; J3010; J3370; J3475; J3480; J3490; J7030; J7050; J7070; J7620; P9045; Q9967; U0003

== ENCOUNTER 2020-03-29 11:18 | Inpatient (IN) | payer OTHER ==
[~2020-03-29 11:18] MED LIST changes: -Atropine Sulfate 1 mg/10 ml Syringe ONE; -EPINEPHrine 1 MG/ML AMP ONE; -Heparin 10,000 UNITS/ 10 ML VIAL ONE; +Rocuronium Bromide 10 MG/ML (10ML VIAL) ONE
[2020-03-29 11:53] LABS: #Lymphocytes 0.3 thou/uL (1.20-3.40); #Monocytes 0.2 thou/uL (0.11-0.59); %Lymphocytes 3.9 % (21.0-51.0); %Monocytes 2.6 % (0.0-10.0); %Neutrophils 93.5 % (42.0-75.0); Hemoglobin 8.1 g/dL (14.0-18.0); Mean Corpuscular HGB CONC 31.8 g/dL (32.0-36.0); Mean Corpuscular Hemoglobin 28.3 pg (27.0-31.0); Mean Platelet Volume 9.2 fL (7.4-10.4); Platelet Count 74 thou/uL (130-400); RBC Distribution Width 13.7 % (11.5-14.5); Red Blood Cell (RBC) Count 2.85 mill/uL (4.70-6.10); White Blood Cell (WBC) Count 7.5 thou/uL (4.8-10.8)
[2020-03-29 12:25] LABS: Analyzer IN Cardio ER; Base Excess (BEa) -4.4 mEq/L (-2.0 to +3.0); CO2 Tension 33.6 mmHg (35.0-45.0); Calcium, Ionized (arterial) 1.13 mmol/L (1.12-1.30); Carboxyhemoglobin (COHb) 0.9 gm% (0.0-3.0); Hemoglobin (Hb) 7.5 g/dL (14.0-18.0); O2 Tension (PaO2), arterial 71.4 mmHg (> 80.0); Potassium - ABG Lab 3.09 mmol/L (3.70-5.30); pH, Arterial 7.39 (7.35-7.45)
[2020-03-29 12:27] LABS: ALT (SGPT) 9 U/L (8-55); AST (SGOT) 25 U/L (5-34); Albumin 2.3 g/dL (3.4-4.8); Alkaline Phosphatase 101 U/L (40-110); Anion Gap 14 mmol/L (10-20); BUN (Urea Nitrogen) 22 mg/dL (8.4-25.7); Bilirubin, Total 0.4 mg/dL (0.2-1.2); Calc. Creatinine Clearance 0 mL/min (70-130); Calcium 7.7 mg/dL (7.8-10.44); Carbon Dioxide 21 mmol/L (23-31); Chloride 105 mmol/L (98-107); Estimated GFR-MDRD Greater than 90; Globulin 3.2 g/dL (2.4-3.5); Glucose 80 mg/dL (80-115); Potassium 3.5 mmol/L (3.5-5.1); Protein, Total 5.5 g/dL (5.8-8.1); Sodium 136 mmol/L (136-145)
[2020-03-29 12:27] LABS: Puncture Site RRA
[2020-03-29 12:30] LABS: MDiff Complete? YES; Platelet Morphology Comment Appears Decreased; Polychromasia SLIGHT = 2-3 cells (100X) (0-2/hpf)
[2020-03-29 12:43] LABS: INR-International Normal Ratio 1.2; PTT 36.8 sec (22.9-36.1); Prothrombin Time 14.8 sec (12.0-14.7)
[2020-03-29 13:15] LABS: Bilirubin Negative (Negative); Blood, Urine Negative (Negative); Clarity Turbid (Clear); Glucose, Urine (Dipstick) Greater than 1000 mg/dL (Negative); Ketone, Urine Negative (Negative); Leukocyte 500 Leu/uL (Negative); Nitrite Negative (Negative); Protein, Urine (Dipstick) 20 mg/dL (Neg-Trace); Specific Gravity, Urine 1.019 (1.002-1.036); Squamous Epithelial 0-3 HPF (0-3); Urobilinogen Normal mg/dL (Less than 2); pH, Urine 5.5 (5.0-9.0)
[2020-03-29 13:20] LABS: CKMB 4.6 ng/mL (0-6.6)
--- NOTE | 2020-03-29 13:22 | RAD ---
PORTABLE CHEST: Date: 03/29/2020 HISTORY: Altered mental status. COMPARISON: 03/24/2020 chest x-ray. FINDINGS: Heart size within normal limits. Postop sternotomy changes are seen. There has been development of bi lateral infiltrative lung changes, mostly more peripheral, but some prominent changes of the left sup rahilar region. IMPRESSION: Development of bilateral infiltrates. COVID exposure should be considered. POS: LEXY
[2020-03-29 13:23] LABS: RBC/HPF 0-3 HPF (0-3)
[2020-03-29 13:24] LABS: Bacteria/HPF None Seen HPF (None Seen); Yeast-Budding 4+ HPF (None Seen)
[2020-03-29] MEDS ORDERED: Furosemide 20 MG/2 ML VIAL ONE (15:00)
[2020-03-29] MEDS ORDERED: methylPREDNISolone Sod Succ 40 MG VIAL ONE (15:06)
[2020-03-29] MEDS ORDERED: Dextrose 5% in Water 1,000 ML IV PRN (15:18)
[2020-03-29] MEDS ORDERED: Dextrose 50% Abboject 50 ML SYRINGE SLOW IVP PRN (15:18)
[2020-03-29] MEDS ORDERED: HumaLOG 300 UNITS/3 ML VIAL SC PRN (15:18)
[2020-03-29 15:20] LABS: Troponin I 0.022 ng/mL (< 0.028)
[2020-03-29] MEDS ORDERED: Sodium Chloride 0.9% 100 ML ONE (15:27)
[2020-03-29] MEDS ORDERED: Piperacillin/Tazobactam 3.375 GM VIAL ONE (15:27)
[2020-03-29] MEDS ORDERED: Vancomycin 1.5 GRAM/300 ML BAG 1.5 GM in Premix Bag 1 BAG IVPB SCH (15:30)
[2020-03-29 15:59] LABS: Lactic Acid 2.5 mmol/L (0.5-2.2)
[2020-03-29 16:29] LABS: SARS-CoV-2 NAA Rapid Test Not Detected (NotDetected)
[2020-03-29] MEDS ORDERED: Electrolyte Replacement Protoc 1 EACH EACH IVPB ONE (17:51)
[2020-03-29] MEDS ORDERED: Piperacillin/Tazobactam 3.375 GM in Sodium Chloride 0.9% 100 ML IVPB SCH (18:00)
[2020-03-29] MEDS ORDERED: Ventilator Sedation Protocol 1 EACH FS SCH (18:00)
[2020-03-29] MEDS ORDERED: Norepinephrine 8 MG/0.9% NS 250 ML IVPB SCH (18:00)
[2020-03-29] MEDS ORDERED: Sodium Chloride 0.9% 1,000 ML IV SCH (18:00)
[2020-03-29 18:05] LABS: Base Excess (BEa) -8.5 mEq/L (-2.0 to +3.0); Calcium, Ionized (arterial) 1.15 mmol/L (1.12-1.30); Hemoglobin (Hb) 8.4 g/dL (14.0-18.0); O2 Tension (PaO2), arterial 223.2 mmHg (> 80.0); Potassium - ABG Lab 3.15 mmol/L (3.70-5.30)
[2020-03-29] MEDS ORDERED: DISCONTINUE PREVIOUS NARCOTIC PAIN MEDICATIONS AND BENZODIAZEPINES FS SCH (18:07)
[2020-03-29] MEDS ORDERED: fentaNYL Citrate/PF 2,000 MCG in Sodium Chloride 0.9% 60 ML IV SCH (18:07)
[2020-03-29] MEDS ORDERED: Propofol 1,000 MG/100 ML VIAL IV PRN (18:07)
[2020-03-29] MEDS ORDERED: Morphine 2 MG/ML VIAL SLOW IVP PRN (18:07)
[2020-03-29] MEDS ORDERED: Fentanyl BOLUS 250 ML IVPB PRN (18:07)
[2020-03-29] MEDS ORDERED: Lorazepam 2 MG/ML VIAL SLOW IVP PRN (18:07)
[2020-03-29] MEDS ORDERED: Propofol BOLUS 1,000 MG/100 ML VIAL IV PRN (18:07)
[2020-03-29 18:08] LABS: ALV-art Gradient 388.425 (0-20); CO2 Tension 81.1 mmHg (35.0-45.0); Puncture Site LRA; pH, Arterial 7.05 (7.35-7.45)
--- NOTE | 2020-03-29 18:08 | RAD ---
RADIOGRAPH CHEST 1 VIEW: DATE: 03/29/2020 TIME: 5:40 PM HISTORY: 64-year-old male with respiratory failure status post intubation COMPARISON: 03/29/2020 12:28 PM FINDINGS: New endotracheal tube distal tip at mid thoracic trachea. New NG tube distal tip in proximal stomach. New finding of gaseous gastric distention. Heterogeneously distributed mixed interstitial and alveolar infiltrates are significantly worse at ri ght upper lung zone and moderately worse elsewhere bilaterally. No cardiomegaly or pneumothorax. IMPRESSION: 1) status post intubation 2) interval worsening of infiltrates
[2020-03-29 18:10] LABS: Troponin I 0.024 ng/mL (< 0.028)
[2020-03-29] MEDS ORDERED: Electrolyte Replacement Protocol FS PRN (18:15)
[2020-03-29] MEDS: methylPREDNISolone Sod Succ 40 MG VIAL IVP SCH (18:17)
--- NOTE | 2020-03-29 19:04 | RAD ---
CHEST ONE VIEW: 03/29/20 INDICATION: History of line placement. COMPARISON: Prior exam dated 03/29/20 at 5:26 p.m. FINDINGS: Bilateral air space disease persists. ET tube and gastric catheter are unchanged. Pacer pads overlie the left chest wall. Right subclavian central venous catheter has been intervally placed with the tip at the cavoatrial junction. No definite pneumothorax is evident. No acute osseous abnormality is not ed. IMPRESSION: 1. New right subclavian central venous catheter without evidence of pneumothorax. 2. Stable bilateral air space disease. 3. Stable ET tube and gastric catheter. POS: BH
--- NOTE | 2020-03-29 19:52 | OP ---
DATE OF PROCEDURE: 03/29/2020 PREOPERATIVE DIAGNOSES: 1. Acute respiratory failure. 2. Acute septic shock. POSTOPERATIVE DIAGNOSES: 1. Acute respiratory failure. 2. Acute septic shock. PROCEDURE PERFORMED: Placement of triple-lumen right subclavian central venous catheter. INDICATIONS FOR PROCEDURE: A 64-year-old man, admitted in acute respiratory failure with shock. I was asked to place a central venous catheter to facilitate therapeutic intervention. DESCRIPTION OF PROCEDURE: Informed consent was obtained from the patient's power of estate attorney. The patient was placed in supine position. Right chest wall sterilely prepped and draped in usual fashion. Skin below the right clavicle was anesthetized with 1% lidocaine. The right subclavian vein was cannulated with an 18-gauge introducer needle, returning dark venous blood. A guidewire was passed through the needle and advanced into the right subclavian vein without resistance. The needle was withdrawn over the guidewire. A stab incision was made adjacent to the guidewire using 11 scalpel. Dilator was passed over the guidewire, dilating the subcutaneous tissues. Dilator was removed and a triple-lumen central venous catheter was advanced over the guidewire and placed in the right subclavian vein without resistance, stopping at the 18 cm maude. Guidewire was removed. Dark venous blood was aspirated from all 3 ports, which were individually flushed with saline. Catheter was secured to anterior chest wall using 3-0 silk suture at two points. Sterile dressing was applied. The patient tolerated the procedure without any apparent complication and remains hemodynamically stable following completion of procedure. Chest x-ray confirmed proper placement, no pneumothorax present. Job ID: [id number]
--- NOTE | 2020-03-29 20:04 | PDOC.HHP ---
Hospitalist HPI - History of Present Illness Hypoglycemia History of Present Illness: PCP: SANDIE The patient is a ill-appearing 64-year-old male with past medical history significant for cardiac arrest this past month, diabetes, and hypertension. Patient was found today unresponsive with a blood sugar less than 15. He was given D10 and EMS was able to get his sugars to 89. After intervention he was alert and oriented x4. Patient states he has been taking his medications as prescribed. Of note, patient was admitted into the hospital on March 18, 2020 after cardiac arrest. He ended up leaving the hospital AMA 2 days ago after an extensive hospital stay. Upon interview patient states he would like to leave AMA today also because he cannot get comfortable in his bed. Encouraged patient to stay for treatment. Patient initially denied any chest pain, shortness of breath, abdominal pain, contact with sick persons. He stated he felt fine and was ready to go. Initial assessment was essentially unremarkable. Fifteen minutes after initial interview patient was reported to have severe shortness of breath. He stated he was unable to get comfortable and was unable to take a deep breath in. Patient began using accessory muscles to breathe and was in the tripod position. Assessment was repeated and patient had coarse rhonchi throughout all lung mercado. Dr. Godoy came to the bedside at this time. IV Lasix, IV Solu-Medrol, DuoNeb were all ordered. Patient did have to placed on BiPAP. ABG was repeated. ED Course: In the ER they completed a lab work, ABG, Accu-Chek EKG, chest x-ray, and urinalysis. Medications administered include 500 mL of normal saline, Lasix 20 mg IV, Solu-Medrol 40 mg IV, DuoNeb, Zosyn 3.375 g, vancomycin 1.5 g. He was placed on BiPAP prior to admission to the floor. Hospitalist ROS - Review of Systems Constitutional: reports: weakness Eyes: denies: pain, vision change, conjunctivae inflammation, eyelid inflammation, redness, other ENT: denies: ear pain, ear discharge, nose pain, nose discharge, nose congestion , mouth pain, mouth swelling, throat pain, throat swelling, other Respiratory: reports: cough. denies: dry, shortness of breath, hemoptysis, SOB with excertion, pleuritic pain, sputum, wheezing, other Cardiovascular: denies: chest pain, palpitations, orthopnea, paroxysmal noc. dyspnea, edema, light headedness, other Gastrointestinal: denies: nausea, vomiting, abdominal pain, diarrhea, constipation, melena, hematochezia, other Genitourinary: denies: dysuria, frequency, incontinence, hematuria, retention, other Musculoskeletal: denies: neck pain, shoulder pain, arm pain, back pain, hand pain, leg pain, foot pain, other Skin: denies: rash, lesions, blank, bruising, other Neurological: denies: weakness, numbness, incoordination, change in speech, confusion, seizures, other All other systems reviewed; all pertinent +/- noted in HPI/Subj - Medication Medications: NKDA Current Med: Patient unable to list medications at this time however he states he has been compliant with him Active Medications Generic Name Dose Route Start Last Admin Trade Name Freq PRN Reason Stop Dose Admin Albuterol/Ipratropium 3 ml 03/29/20 18:30 03/29/20 18:32 Duoneb NEB 3 ml [id number] MIMI Administration Sodium Chloride 1,000 mls @ 50 mls/hr 03/29/20 18:00 03/29/20 18:17 Normal Saline 0.9% IV 1,000 mls .Q20H MIMI Administration Fentanyl Citrate 2,000 mcg/ 100 mls @ 0 mls/hr 03/29/20 18:07 03/29/20 18:19 Sodium Chloride IV 04/28/20 18:07 100 mls INF MIMI Administration Protocol Per Protocol Methylprednisolone Sodium Succinate 40 mg 03/29/20 18:00 03/29/20 18:17 Solu-Medrol IVP 40 mg Q6HR MIMI Administration Hospitalist History - Past Medical History Source: patient Cardiac: reports: HTN, Hyperlipidemia Endocrine: reports: Diabetes - Past Surgical History Past Surgical History: reports: no pertinent history - Family History Family History: reports: no pertinent history - Social History Smoking Status: Current every day smoker Living Situation: Friends - Exam General Appearance: awake alert, ill appearing General - other findings: BP: 100/72, Pulse: 97, Resp: 26, Temp: 97.7 (Axillary) , O2 sat: 97% bipap Neck: supple, no lymphadenopathy Heart: RRR, no murmur, no gallops, no rubs, diminshed peripheral pulses Respiratory: rhonchi, tachypneic Respiratory - other findings: Retractions Gastrointestinal: soft, non-tender, non-distended, normal bowel sounds Extremities - other findings: Stasis dermatitis Hospitalist Results - Labs Result Diagrams: 03/29/20 11:38 03/29/20 11:38 Lab results: WBC 7.5 thou/uL (4.8-10.8) 03/29/20 11:38 Hgb 8.1 g/dL (14.0-18.0) L 03/29/20 11:38 Hct 25.4 % (42.0-52.0) L 03/29/20 11:38 MCV 89.0 fL (78.0-98.0) 03/29/20 11:38 Plt Count 74 thou/uL (130-400) L 03/29/20 11:38 Neutrophils % 93.5 % (42.0-75.0) H 03/29/20 11:38 ABG pH 7.05 (7.35-7.45) L* 03/29/20 Unknown ABG pCO2 81.1 mmHg (35.0-45.0) H* 03/29/20 Unknown ABG pO2 223.2 mmHg (> 80.0) H 03/29/20 Unknown Sodium 136 mmol/L (136-145) 03/29/20 11:38 Potassium 3.5 mmol/L (3.5-5.1) 03/29/20 11:38 Chloride 105 mmol/L (98-107) 03/29/20 11:38 Carbon Dioxide 21 mmol/L (23-31) L 03/29/20 11:38 BUN 22 mg/dL (8.4-25.7) 03/29/20 11:38 Creatinine 0.83 mg/dL (0.7-1.3) 03/29/20 11:38 Glucose 80 mg/dL (80-115) 03/29/20 11:38 Lactic Acid 2.5 mmol/L (0.5-2.2) H 03/29/20 15:20 Calcium 7.7 mg/dL (7.8-10.44) L 03/29/20 11:38 Total Bilirubin 0.4 mg/dL (0.2-1.2) 03/29/20 11:38 AST 25 U/L (5-34) 03/29/20 11:38 ALT 9 U/L (8-55) 03/29/20 11:38 Alkaline Phosphatase 101 U/L (40-110) 03/29/20 11:38 CK-MB (CK-2) 4.6 ng/mL (0-6.6) 03/29/20 11:38 Troponin I 0.024 ng/mL (< 0.028) 03/29/20 17:32 B-Natriuretic Peptide 379.8 pg/mL (0-100) H 03/29/20 15:20 Serum Total Protein 5.5 g/dL (5.8-8.1) L 03/29/20 11:38 Albumin 2.3 g/dL (3.4-4.8) L 03/29/20 11:38 Urine Ketones Negative mg/dL (Negative) 03/29/20 12:58 Urine Blood Negative (Negative) 03/29/20 12:58 Urine Nitrite Negative (Negative) 03/29/20 12:58 Ur Leukocyte Esterase 500 Bety/uL (Negative) A 03/29/20 12:58 Urine RBC 0-3 HPF (0-3) 03/29/20 12:58 Urine WBC 11-20 HPF (0-3) A 03/29/20 12:58 Ur Squamous Epith Cells 0-3 HPF (0-3) 03/29/20 12:58 Urine Bacteria None Seen HPF (None Seen) 03/29/20 12:58 Laboratory Tests 03/29/20 03/29/20 03/29/20 11:38 11:38 12:20 INR 1.2 Bicarbonate Actual 20.0 L ABG pCO2 33.6 L ABG O2 Sat (Measured) 92.5 L ABG O2 Content 9.7 L ABG Base Excess -4.4 L ABG Hematocrit 22.0 L ABG Hemoglobin 7.5 L ABG Oxyhemoglobin 91.2 L ABG Deoxyhemoglobin 7.4 H Sodium 134 L Potassium 3.09 L CK-MB (CK-2) 4.6 Troponin I 0.033 H Urine Clarity Urine Glucose (UA) Ur Leukocyte Esterase Urine WBC Hyaline Casts Urine Yeast (Budding) SARS-CoV-2 Rap RNA(RT-PCR) 03/29/20 03/29/20 12:58 15:16 INR Bicarbonate Actual ABG pCO2 ABG O2 Sat (Measured) ABG O2 Content ABG Base Excess ABG Hematocrit ABG Hemoglobin ABG Oxyhemoglobin ABG Deoxyhemoglobin Sodium Potassium CK-MB (CK-2) Troponin I Urine Clarity Turbid A Urine Glucose (UA) Greater than 1000 A Ur Leukocyte Esterase 500 A Urine WBC 11-20 A Hyaline Casts 7-10 A Urine Yeast (Budding) 4+ A SARS-CoV-2 Rap RNA(RT-PCR) Not Detected - EKG Interpretation EKG: SR 88 Hospitalist H&P A/P - Problem (1) Respiratory failure, acute Code(s): J96.00 - ACUTE RESPIRATORY FAILURE, UNSP W HYPOXIA OR HYPERCAPNIA Status: Acute (2) Hypoglycemia Code(s): E16.2 - HYPOGLYCEMIA, UNSPECIFIED Status: Acute (3) CHF (congestive heart failure) Code(s): I50.9 - HEART FAILURE, UNSPECIFIED Status: Chronic (4) Elevated troponin Code(s): R79.89 - OTHER SPECIFIED ABNORMAL FINDINGS OF BLOOD CHEMISTRY Status : Acute (5) Anemia Code(s): D64.9 - ANEMIA, UNSPECIFIED Status: Acute - Plan Plan: Acute respiratory failure Rapid COVID swab negative Currently requiring BiPAP Pulmonary consult Will require IMCU admission Broad-spectrum antibiotics Repeat ABG ordered IV steroids Hypoglycemiaresolved Monitor Accu-Cheks every 2 hours Hold diabetic medications Patient currently n.p.o. Indeterminate troponin Initial troponin 0.033, this is a decrease from when he was admitted last Continue to trend Denies chest pain Currently on aspirin Anemia Continue to monitor labs Hemoglobin currently 8.1 with 8.2 and patient left AMA 2 days ago CHF Infiltrate showed on x-ray BNP ordered GI and DVT prophylaxis in place CODE STATUS: Full Patient refused to name surrogate decision-maker Patient case discussed with Dr. Godoy at bedside pt seen and examined in the ER since he had a rapid deterioration. Pt was given duoneb/steroids and put on bipap. He was then transferred to im[facility]. blood pressure was a bit on the low side. lungs have significant rhonchi all over. will start pt on antibiotics and will continue steroids and duoneb. cv s1 s2 present no murmurs. lower ext mild +2 edema.
[2020-03-29 20:48] LABS: Actual Bicarbonate (HCO3a) 22.9 mEq/L (22-28); Base Excess (BEa) -7.5 mEq/L (-2.0 to +3.0); Calcium, Ionized (arterial) 1.15 mmol/L (1.12-1.30); Carboxyhemoglobin (COHb) 0.6 gm% (0.0-3.0); Hemoglobin (Hb) 9.7 g/dL (14.0-18.0); O2 Tension (PaO2), arterial 65.8 mmHg (> 80.0); Potassium - ABG Lab 3.26 mmol/L (3.70-5.30)
[2020-03-29 20:52] LABS: pH, Arterial 7.09 (7.35-7.45)
[2020-03-29 20:53] LABS: CO2 Tension 77.8 mmHg (35.0-45.0); Puncture Site RBR
[2020-03-29] MEDS ORDERED: Vasopressin 20 UNIT, Admixture Fee 1 EACH in Sodium Chloride 0.9% 50 ML IV SCH (21:00)
[2020-03-29] MEDS ORDERED: Cefepime 1 GM in Sodium Chloride 0.9% 100 ML IVPB SCH (21:00)
[2020-03-29] MEDS ORDERED: Albumin 5% 250 ML ONE (21:00)
[2020-03-29] MEDS ORDERED: Famotidine/PF 20 mg/2ml Vial SLOW IVP SCH (21:00)
[2020-03-29] MEDS ORDERED: Atorvastatin Calcium 40 MG TAB PO SCH (21:00)
[2020-03-29] MEDS ORDERED: Sodium Bicarb 50 MEQ/50 ML Abboject 8.4% SYRINGE ONE (21:10)
[2020-03-29] MEDS ORDERED: Sodium Bicarb 50 MEQ/50 ML Abboject 8.4% SYRINGE IVP SCH (21:15)
--- NOTE | 2020-03-29 21:44 | PDOC.EVN ---
Event Note - Event Note Event Note: evaluted patient at request fo dr keys, physical exam performed and stable from earlier records, ABG w/ continued hypercapnea, nurse discussed vent settings w/ dr keys. BP was low, but now on levophed and vasopressin and improving MAP > 65 , started bicarb in D5 drip given acidosis
[2020-03-29 21:50] VITALS: BP 99/69
[2020-03-29] MEDS ORDERED: Sodium Bicarbonate 150 MEQ in Dextrose 5% in Water 1,000 ML IV SCH (22:00)
[2020-03-29] MEDS ORDERED: Piperacillin/Tazobactam 4.5 GM in Sodium Chloride 0.9% 100 ML IVPB SCH (22:00)
[2020-03-29] MEDS ORDERED: DOPamine 400 MG/D5W 250 ML 250 ML ONE (22:31)
[2020-03-29] MEDS ORDERED: DOPamine 400 MG/D5W 250 ML 250 ML IVPB SCH (22:45)
[2020-03-30] MEDS ORDERED: Morphine 2 MG/ML VIAL SLOW IVP PRN (00:36)
[2020-03-30 00:43] VITALS: TEMP 97
[2020-03-30] MEDS: methylPREDNISolone Sod Succ 40 MG VIAL IVP SCH (00:53)
[2020-03-30] MEDS ORDERED: Vancomycin 1 GM in Premix Bag 1 BAG IVPB SCH (06:00)
--- NOTE | 2020-03-30 08:21 | PDOC.EVN ---
Event Note - Event Note Event Note: pt seen and examined in the ER. I was initially told pt was hypoglycemic and was doing well. Nurse practitioner at beside who called me that pt's respiratory status is worsening. ordered cxr, duoneb and solumedrol. Pt was on 5L and still not doing well. Called RT to put pt on bipap. Pt transferred to [facility]. spoke with pt's nurse who states pt was doing well. After around 15-20min there was a code blue. Did go to pt's bedside and pt was undergoing cpr. Per nursing staff pt wanted to go to the bathroom and then he had bradycardia and then asystole. Pt underwent a round of cpr and was given 2 rounds of epi and bicarb. pt was intubated and resuscitated appropriately. pt was then transferred to icu and pulmonary was called. Blood gas was done and the results were given to pulmonary by RT. Pt's bp was low and was started on levophed and surgery was called to put in a line. spoke with common-law twice and updated.
[2020-03-30] MEDS ORDERED: Aspirin 81 mg Enteric Coated Tablet PO SCH (09:00)
[2020-03-30] MEDS ORDERED: Enoxaparin Sodium 40 MG/0.4 ML SYRINGE SC SCH (09:00)
--- NOTE | 2020-03-30 10:17 | CON ---
DATE OF CONSULTATION: HISTORY OF PRESENT ILLNESS: Lyle Peres was a 64-year-old gentleman who was admitted on 03/29 with altered mental status and hyperglycemia. He was recently left home with AMA 2 days ago. Prior to that was admitted for cardiac arrest, severe metabolic acidosis, uncontrolled diabetes, and metabolic encephalopathy. His blood sugar was less than 50 when he arrived, apparently he was given D50, started on IV fluids. About 5:40 in the evening, he apparently developed cardiopulmonary arrest. I spoke to the nurses ,many times VFib, ventricular tachycardia, was getting bicarb. CPR was initiated, intubated, and transferred to the ICU. I was eventually consulted. I am told his family members are coming from out of town to assess the situation. Over the course of several hours, multiple phone calls were made to the nurses. He was started on multiple medications as outlined including Levophed, vasopressin , and dopamine. Several amps of bicarb were given. 2 rounds of 5% albumin were given. He remained in severe metabolic acidosis with agonal respiration. He had multiple blood gases done. His pO2 was 223, pCO2 is 81, and pH 7.10. Eventually, he was placed on bilevel. In spite of aggressive treatment, IV fluids, his blood pressure remained low, decreased urine output with multiple abnormalities noted on his lab. X-ray which was taken post intubation showed diffuse infiltrates consistent with aspiration versus CHF. His BNP was 320. His white count 7000, H and H 8 and 25. His platelet count was 74. His chemistry profile showed his renal function was normal. Calcium was low. Albumin is 2.3. I spoke to the nurses numerous times. He was still a full code until family arrived. Hospitalist saw the patient eventually. He was started on a bicarbonate drip. Eventually, proceeded to have a cardiac arrest. He was pronounced . Job ID: [id number] [facility]
--- NOTE | 2020-03-31 07:20 | PQF ---
CLINICAL DOCUMENTATION CLARIFICATION FORM: Dear : Dereje Vieyra Date / Time: 03/31/20 1927 Please exercise your independent, professional judgment in responding to the clarification form. Clinical indicators are provided on the bottom of this form for your review In your clinical opinion based on clinical findings below can you please identify the etiology of Acute Respiratory Failure if due to: Please check appropriate box(es): [x ] Septic shock from aspiration pneumonia [ ] Hypoglycemia [ ] Other diagnosis [ ] Unable to determine Physician Signature: Date/Time: For continuity of documentation, please document condition throughout progress notes and discharge summary. Thank You. To be completed by CDI/Coding staff for physician review: Present Clinical Indicators - Signs / Symptoms / Labs Results and Location in Medical Record [X] WBC 7.5, Plt count 74, Neutrophils 93.5, Lactic acid 2.1 Laboratory 03/29 [X] ph 7.09, pcO2 77.8, pO2 65.8. O2 sat 84.4 ABG 03/29 BP 123/79, Pulse 95, Resp 23, Temp 98 Vital signs 03/29 [X] Blood Culture: No growth at date Microbiology 03/29 [X] Reported to have severe shortness of breath H&P p1 03/29 [facility] [X] Began using accessory muscles to breath and was in tripod position H&P p1 03/29 [facility] [X] Acute respiratory failure H&P p7 03/29 [facility] [X] Hypoglycemia H&P p7 03/29 [facility] [X] Acute septic shock Operative report Dr oYu 03/29 Present Risk Factors Results and Location in Medical Record [X] 64 year-old Male H&P p1 03/29 [facility] [X] Smoker H&P p1 03/29 [facility] [X] HTN H&P p1 03/29 [facility] [X] HLD H&P p1 03/29 [facility] [X] CHF H&P p1 03/29 [facility] [X] DM ED Notes 03/29 Present Treatments Results and Location in Medical Record [X] Duoneb 3 ml neb SEP 27 [X] IV Cefepime 1 gm SEP 27 [X] IV Dopamine 400 mg SEP 27 [X] IV Levophed 250 ml SEP 27 [X] IV Vancomycin 1.5 gm SEP 27 [X] ABG Laboratory 03/29 [X] Blood Culture Microbiology 03/29 [X] BiPap Respiratory Panel 03/29 [X] Mechanical ventilator Respiratory Panel 03/29 [X] Glucagon 1mg IM SEP 27 [X] Pulmonology Consult Consult 03/29 [facility]/W[employer] Maker Signature: uJdith Perez Phone #: [phone] Date/Time: 03/31/2020 0798 This is a permanent part of the Medical Record [facility]
--- NOTE | 2020-04-01 03:04 | DIS ---
DATE OF ADMISSION: 03/29/2020 DATE OF DISCHARGE: 03/30/2020 SUMMARY: DATE OF : 03/30. DISCHARGE DIAGNOSES: As of the following; 1. Acute hypoxic respiratory failure. 2. Sepsis. 3. Septic shock. 4. Aspiration pneumonia most likely from aspiration pneumonia. 5. Hypoglycemia. HOSPITAL COURSE: The patient is a 64-year-old male, who initially came in for hypoglycemia. The patient at this time was resuscitated appropriately. However, while in the ED, he became very short of breath. At this time, appropriate measures were taken including putting the patient on BiPAP and starting neb treatments and also Solu-Medrol. The patient was transferred to the [facility] initially, then he underwent a cardiac arrest. At this time, the patient was resuscitated successfully and was transferred to the ICU, intubated. He was initially on vasopressin. A central line was placed. The patient continued to deteriorate overnight and was not pleasant. However, I was told that the patient's family came in, who withdrew care on the patient. The patient was on three pressors. TIME OF : 0120 hours. Job ID: [id number]
== END 2020-03-30 01:20 | disposition expired | DRG 871 ==
LOC: ERS 11:18 → IMCU/EMU 13:24 → CCU 17:45
PROVIDERS: ADMIT Internal Medicine; ATTEND Internal Medicine
PROC: 5A1935Z Respiratory Ventilation, Less than 24 Consecutive Hours (ICD-10-PCS; principal; 2020-03-29)
PROC: 02HV33Z Insertion of Infusion Device into Superior Vena Cava, Percutaneous Approach (ICD-10-PCS; 2020-03-29)
PROC: 0BH17EZ Insertion of Endotracheal Airway into Trachea, Via Natural or Artificial Opening (ICD-10-PCS; 2020-03-29)
PROC: 3E043XZ Introduction of Vasopressor into Central Vein, Percutaneous Approach (ICD-10-PCS; 2020-03-29)
PROC: 5A12012 Performance of Cardiac Output, Single, Manual (ICD-10-PCS; 2020-03-29)
PROC: 5A09357 Assistance with Respiratory Ventilation, Less than 24 Consecutive Hours, Continuous Positive Airway Pressure (ICD-10-PCS; 2020-03-29)
DX: A41.9 Sepsis, unspecified organism (principal); J96.01 Acute respiratory failure with hypoxia; R65.21 Severe sepsis with septic shock; J69.0 Pneumonitis due to inhalation of food and vomit; J96.02 Acute respiratory failure with hypercapnia; I47.2 Ventricular tachycardia; E87.2 Acidosis; Z79.4 Long term (current) use of insulin; Z66 Do not resuscitate; Z20.828 Contact with and (suspected) exposure to other viral communicable diseases; E78.5 Hyperlipidemia, unspecified; F17.210 Nicotine dependence, cigarettes, uncomplicated; E11.649 Type 2 diabetes mellitus with hypoglycemia without coma; R79.89 Other specified abnormal findings of blood chemistry; I46.2 Cardiac arrest due to underlying cardiac condition; I49.01 Ventricular fibrillation; I50.9 Heart failure, unspecified; I11.0 Hypertensive heart disease with heart failure; D64.9 Anemia, unspecified; Z78.1 Physical restraint status; Z86.74 Personal history of sudden cardiac arrest; Z79.899 Other long term (current) drug therapy
CPT/HCPCS: 36415; 36416; 36600; 51701; 71045; 80053; 81003; 81015; 82553; 82805; 83605; 83880; 84484; 85025; 85610; 85730; 87040; 87086; 92950; 93005; 94002; 94640; 94760; 96361; 96365; 96374; 96375; C1751; J0171; J1265; J1940; J2270; J2543; J2920; J3010; J3370; J3490; J7070; J7620; P9045; S0028; U0002